=== PATIENT | female | born 1945 | race Caucasian/White ===

== ENCOUNTER 2016-11-13 13:32 | Inpatient (IN) | payer MEDICARE, OTHER ==
[2016-11-03 10:31] VITALS: BMI 24.4
[~2016-11-13 13:32] MED LIST: ACETAMINOPHEN TAB 500 MG TAB PO ONE; HYDROmorphone 1 MG/ML 1 ML SYRINGE IVP PRN; LIDOCAINE 1% 20 ML VIAL (10MG/ML) FOR IV START INTRADERMA PRN; MELOXICAM 7.5 MG TAB PO ONE; ONDANSETRON 4 MG/2 ML VIAL IVP ONE; TRANEXAMIC ACID 1,000 MG in SODIUM CHLORIDE 0.9% 100 ML IVPB ONE
[2016-11-13] MEDS ORDERED: DEXAMETHASONE SOD PHOS (MDV) 100 MG/10 ML VIAL IV ONE (14:16)
[2016-11-13] MEDS: LACTATED RINGERS 1,000 ML IV SCH ×2 (14:16→22:30)
[2016-11-13] MEDS ORDERED: PROPOFOL 10 MG/ML 20 ML VIAL IV ONE (14:40)
[2016-11-13] MEDS ORDERED: ceFAZolin 1,000 MG VIAL ONE (14:40)
[2016-11-13] MEDS ORDERED: SODIUM CHLORIDE 0.9% IRRIG 1,000 ML BTL IRRIGATION ONE (14:40)
[2016-11-13] MEDS ORDERED: SODIUM CHLORIDE 0.9% IRRIG 3,000 ML BAG IRRIGATION ONE (14:40)
[2016-11-13] MEDS ORDERED: ceFAZolin 10 GM VIAL IVPB ONE (14:40)
[2016-11-13] MEDS ORDERED: LIDOCAINE 1% INJ 10MG/ML (20 ML MDV) ONE (14:40)
[2016-11-13] MEDS ORDERED: ePHEDrine 50 MG/ML 1 ML AMP ONE (14:40)
[2016-11-13] MEDS ORDERED: SODIUM CHLORIDE 0.9% 100 ML BAG ONE (14:40)
[2016-11-13] MEDS ORDERED: HEPARIN SODIUM,PORCINE 10,000 UNIT/ML 1 ML VIAL ONE (14:40)
[2016-11-13] MEDS ORDERED: KETAMINE 10 MG/ML 20 ML VIAL ONE (14:40)
[2016-11-13] MEDS ORDERED: PHENYLEPHRINE-0.9% NACL SYG 1 MG/10 ML SYRINGE ONE (14:40)
[2016-11-13] MEDS ORDERED: fentaNYL (PF) 50 MCG/ML 2 ML AMP ONE (14:40)
[2016-11-13] MEDS ORDERED: MIDAZOLAM 2 MG/2 ML VIAL ONE (14:40)
[2016-11-13] MEDS: ceFAZolin 2 GM in SODIUM CHLORIDE 0.9% 100 ML IVPB ONE ×2 (14:46→16:47)
[2016-11-13] MEDS ORDERED: hydrOXYzine PAMOATE 25 MG CAP PO PRN (14:54)
[2016-11-13] MEDS ORDERED: DIAZEPAM 5 MG TAB PO PRN ×2 (14:54)
[2016-11-13] MEDS ORDERED: HYDROmorphone 1 MG/ML 1 ML SYRINGE IVP PRN ×3 (14:54)
[2016-11-13] MEDS ORDERED: NALOXONE 0.4 MG/ML 1 ML VIAL IV PRN (14:54)
[2016-11-13] MEDS ORDERED: ONDANSETRON 4 MG/2 ML VIAL IVP PRN (14:54)
[2016-11-13] MEDS ORDERED: MAGNESIUM HYDROXIDE 2,400 MG/10 ML CUP PO PRN (14:54)
[2016-11-13] MEDS: ROPIVACAINE 246.25 MG, EPINEPHrine 0.5 MG, KETOROLAC 30 MG, cloNIDine HCL/PF 80 MCG, WA... MISCELLANE ONE ×10 (15:21→15:47)
[2016-11-13] MEDS ORDERED: ceFAZolin 3,000 MG in SODIUM CHLORIDE 0.9% IRRIGATIO 3,000 ML IRRIGATION ONE (15:22)
--- NOTE | 2016-11-13 15:58 | P.OP ---
Date of Procedure: 11/13/16 Preoperative Diagnosis: Severe osteoarthritis of the left hip. Postoperative Diagnosis: Severe osteoarthritis of the left hip. Procedure(s) Performed: Left total hip arthroplasty. Implants: Mcneill and nephew Polarstem size 1 standard Mcneill & Nephew R3, 3 hole acetabular shell, 52 mm Mcneill & Nephew reflection 6.5 mm cancellus screw, 25 mm, 20mm Mcneill & Nephew R3, XLPE 20 acetabular liner Mcneill & Nephew Oxinium femoral head 36 m, +0 All components were press-fit. The articulation is ceramic on polyethylene. Anesthesia: spinal Surgeon: Amarjit Odonnell Windscreen Fitter #1: Brandi Neville Estimated Blood Loss (ml): 100 Pathology: other (Femoral head) Condition: stable Disposition: PACU Indications for Procedure: After failure of conservative treatment we discussed the surgical and nonsurgical treatment options at length. Patient wishes to proceed with a total hip arthroplasty with a lateral approach. Complications specific to this procedure were discussed at length, including but not limited to infection, leg length discrepancy, dislocation, and nerve injury. Patient is aware of all these complications and informed consent was obtained Operative Findings: The operative findings are consistent with severe osteoarthritis of the left hip. Description of Procedure: Patient was seen and evaluated in the preoperative area, consent was reviewed, and the surgical site was marked with a skin marker. Patient was then brought to the operating room and given prophylactic antibiotics intravenously. 1 g of Tranexamic acid was also given. A spinal anesthetic was administered by the anesthesia department. A Huggins catheter was then placed by the nursing staff. The patient was then placed on the operative table and placed in the lateral decubitus position with the bony prominences well-padded. The hip area was then prepped and draped in usual sterile fashion. A universal timeout was then performed, which confirmed the patient's name, surgical site, ALLERGIES, and procedure being performed. Next the incision site was located in the lateral aspect of the hip, centered at the tip of the greater trochanter.. The skin and subcutaneous tissues were sharply incised. Incision was carefully dissected down to the fascia. This fascia was then incised in line with the incision. Next, a Charnley retractor was then placed in the abductors were identified. The anterior one third of the abductors was released off the trochanter and one large sleeve. The anterior hip capsule was then exposed. The capsule was then opened. The proximal femur was then visualized. The hip was then gently dislocated. The femoral neck was then osteotomized appropriate level above the lesser trochanter. On gross visual inspection, the femoral head had complete loss of articular cartilage and multiple periarticular osteophytes. Attention was then turned to the acetabulum. The acetabulum was exposed and any remaining labrum was excised. Sequential reaming of the acetabulum was performed to a bed of bleeding cancellus bone. When the appropriate size was reached, a trial was then placed. The trial was then removed. Then the final implant was impacted at 20 of anteversion and 40 of abduction, and fully seated in the acetabulum. 2 screws were then placed in the acetabulum. Next, the liner was then impacted, with a 20 elevated liner located in the anterior superior quadrant. Component locking was confirmed. Attention was then directed to the femur. The proximal femurs reexposed. Retractors were then placed. A box osteotome was used to lateralize the proximal femur. A head of visual merchandising was then used to locate the femoral canal. Sequential broaching was then performed with appropriate size which afforded excellent fixation in the proximal femur. The calcar was then planed. A trial was then placed with appropriate head and neck, and the hip was gently reduced. The leg lengths were checked and found to be equal. Hip was then taken through full range of motion, was stable throughout. Next, the hip was gently dislocated, and the trials were removed. Final implants were then impacted and the hip was again reduced. The leg lengths were again examined and found to be equal. The hip was also taken through range of motion, and found to be stable. The hip was then copiously irrigated with antibiotic solution with pulsatile lavage. The hip was then irrigated with Irrisept solution. The soft tissues were then injected with ropivacaine solution. A second dose of 1 g of Tranexamic acid was given. The abductors were then repaired with #5 Ethibond suture with drill holes to the bone. The fascia was closed with #2 strata fix suture. The subcutaneous tissue was closed with 3-0 Vicryl. The subcuticular tissue was closed with 30 strata fix suture. The skin was then closed with Dermabond tape. The patient was then transferred to the recovery room in stable condition. The Asst. Brandi Neville was required due to the complexity of surgery, and the need for skilled addictions counselor assistant for positioning, draping, exposure, retraction, and closure of the wound.and closure of the wound.
[2016-11-13] MEDS: SODIUM CHLORIDE 0.9% 1,000 ML IV SCH (16:36)
--- NOTE | 2016-11-13 17:50 | XR ---
EXAMINATION TYPE: XR Hip Limited LT DATE OF EXAM: 11/13/2016 5:40 PM COMPARISON: NONE HISTORY: Hip surgery TECHNIQUE: Single view FINDINGS: There is a left hip prosthesis. Components appear in anatomic position. IMPRESSION: Left hip prosthesis without sign of a complicating process.
[2016-11-13] MEDS ORDERED: DOCUSATE 100 MG CAP PO PRN (18:29)
[2016-11-13] MEDS: HYDROcodone/APAP 10-325MG 1 EACH TAB PO PRN (18:29)
[2016-11-13] MEDS: SENNOSIDES-DOCUSATE SODIUM 1 EACH TAB PO SCH (21:09)
[2016-11-13] MEDS: ceFAZolin 2 GM in SODIUM CHLORIDE 0.9% 100 ML IVPB SCH (21:17)
[2016-11-13] MEDS: ASPIRIN 325 MG TAB PO SCH (21:17)
[2016-11-13] MEDS: GABAPENTIN 300 MG CAP PO SCH (22:01)
[2016-11-13] MEDS: PRAVASTATIN SODIUM 40 MG TAB PO SCH (22:02)
[2016-11-13] MEDS: MELATONIN 5 MG TABLET PO SCH (22:02)
[2016-11-13] MEDS: traZODone HCL 50 MG TAB PO SCH (22:02)
[2016-11-13] MEDS ORDERED: LORazepam 0.5 MG TAB PO PRN (22:41)
[2016-11-14] MEDS: ceFAZolin 2 GM in SODIUM CHLORIDE 0.9% 100 ML IVPB SCH (04:04)
[2016-11-14] MEDS: HYDROcodone/APAP 10-325MG 1 EACH TAB PO PRN ×5 (04:12→19:47)
[2016-11-14] MEDS: LEVOTHYROXINE 25 MCG TAB PO SCH (05:08)
[2016-11-14] MEDS: SODIUM CHLORIDE 0.9% 1,000 ML IV SCH (05:09)
[2016-11-14 07:22] LABS: Anisocytosis Slight; Basophils % (A) 0 %; CH 23.9; CHCM 28.6; Eosinophils % (A) 0 %; HCT 28.9 % (34.0-46.0); HDW 2.67; HGB 8.5 gm/dL (11.4-16.0); Hypochromasia Marked; Luc # (Auto) 0.08; Luc % (Auto) 1; Lymphocytes # (A) 0.7 k/uL (1.0-4.8); Lymphocytes % (A) 9 %; MCH 24.5 pg (25.0-35.0); MCHC 29.2 g/dL (31.0-37.0); MCV 83.9 fL (80.0-100.0); Monocytes # (A) 0.4 k/uL (0-1.0); Monocytes % (A) 5 %; Neutrophils % (A) 85 %; RBC 3.45 m/uL (3.80-5.40); RDW 16.7 % (11.5-15.5); WBC 8.2 k/uL (3.8-10.6); WBC (Perox) 8.73
[2016-11-14 07:41] LABS: Anion Gap 10 mmol/L; Blood Urea Nitrogen 9 mg/dL (7-17); Calcium 8.6 mg/dL (8.4-10.2); Carbon Dioxide 26 mmol/L (22-30); Chloride 110 mmol/L (98-107); Glucose 122 mg/dL (74-99); Non-African American GFR(MDRD) >60 (>60 ml/min/1.73 sqM); Potassium 4.3 mmol/L (3.5-5.1); Sodium 146 mmol/L (137-145)
[2016-11-14] MEDS: GABAPENTIN 300 MG CAP PO SCH ×3 (08:16→20:03)
[2016-11-14] MEDS: LACTOBACILLUS ACIDOPH & BULGAR 1 EACH PACKET PO SCH (08:17)
[2016-11-14] MEDS: ASPIRIN 325 MG TAB PO SCH ×2 (08:17→20:03)
[2016-11-14] MEDS: ESCITALOPRAM 20 MG TAB PO SCH (08:17)
[2016-11-14] MEDS: MELOXICAM 7.5 MG TAB PO SCH (08:17)
[2016-11-14] MEDS: amLODIPine 10 MG TAB PO SCH (08:17)
[2016-11-14] MEDS: FUROSEMIDE 40 MG TAB PO SCH (08:17)
[2016-11-14] MEDS: POTASSIUM CHLORIDE ER 10 MEQ TAB.ER.PRT PO SCH (08:18)
[2016-11-14] MEDS: MULTIVITAMINS, THERA 1 EACH TAB PO SCH (08:19)
--- NOTE | 2016-11-14 10:51 | CONS ---
DATE OF CONSULTATION: 11/13/2016 REASON FOR CONSULTATION: Advice regarding chronic obstructive pulmonary disease and other medical issues requested by Dr. Odonnell. HISTORY OF PRESENT ILLNESS: This 71-year-old woman with a past medical history of multiple medical problems including history of COPD, hypertension, hyperlipidemia, history of degenerative joint disease joint, history of anxiety and depression underwent left total hip joint arthroplasty for severe DJD by Dr. Odonnell. There is no history of chest pain, no palpitations. No history of headache, loss of consciousness, seizures. No history of fever, rigors or chills. PAST MEDICAL HISTORY: History of COPD, hypertension, hyperlipidemia, history of DJD, history of hypothyroidism, history of back surgery, hysterectomy. Medications prior to admission include: 1. Trazodone 50 mg p.o. q.h.s. 2. Norvasc 10 mg p.o. daily. 3. Pravachol 40 mg. 4. K-Dur 10 mEq p.o. daily. 5. Centrum 1 p.o. b.i.d. 6. Melatonin 5 mg q.h.s. 7. Zestril 5 mg daily. 8. Synthroid 25 mcg p.o. daily. 9. Ativan 0.5 mg t.i.d. p.r.n. 10. Probiotic 1 p.o. daily. 11. Colony 10 mg p.o. q.h.s. 12. Neurontin 600 mg q.h.s. and 300 mg b.i.d. 13. Lasix 40 mg b.i.d. 14. Lexapro 20 mg a day. 15. Colace 100 mg t.i.d. p.r.n. 16. Ecotrin 81 mg daily. ALLERGIES: None. FAMILY HISTORY: History of heart disease in the family. No history of any stroke. SOCIAL HISTORY: History of smoking daily, but no history of alcohol intake. REVIEW OF SYSTEMS: ENT: No diminished hearing or diminished vision. CARDIOVASCULAR: No angina, otherwise as mentioned earlier. RESPIRATORY: No cough. GI: No nausea. : No dysuria. NERVOUS SYSTEM: No numbness or weakness. ALLERGY/IMMUNOLOGY: No history of asthma or hayfever. MUSCULOSKELETAL: As mentioned earlier. HEMATOLOGY: No history of anemia. ENDOCRINE: As mentioned earlier. CONSTITUTIONAL: As mentioned earlier. DERMATOLOGY: Negative. RHEUMATOLOGY: Negative. PSYCHIATRY: As mentioned earlier. PHYSICAL EXAMINATION: The patient is alert and oriented times three. Pulse 100, blood pressure 90/55, respirations 16, temperature 98.1, pulse ox 99% on room air. HEENT: Conjunctivae normal. NECK: No jugular venous distention. CARDIOVASCULAR: S1 and S2, muffled. RESPIRATORY: Breath sounds diminished at the bases. No rhonchi, no crackles. ABDOMEN: Soft, nontender, no mass palpable. LEGS: Status post surgery. NERVOUS SYSTEM: Higher function as mentioned. Moves all four limbs. No focal motor deficits. LYMPHATIC: No lymphadenopathy in the neck, axillae or groin. SKIN: No ulcer, rash or bleeding. LABS: Potassium 3.8. ASSESSMENT: 1. Status post left total hip joint arthroplasty. 2. Chronic obstructive pulmonary disease. 3. Hypertension. 4. Hyperlipidemia. 5. History of degenerative joint disease. 6. History of peptic ulcer. 7. History of back surgery, degenerative joint disease. 8. History of anxiety and depression. 9. History of nicotine dependency. RECOMMENDATIONS AND DISCUSSION: In this 71-year-old woman who presented with multiple complex medical issues, we will monitor the patient closely and continue current medications. Continue symptomatic treatment. Otherwise at this time I recommend resume the home medications. Smoking cessation advised. DVT prophylaxis. Follow the patient closely. The patient may be asked to follow up with primary physician after discharge. Thank you Dr. Odonnell for asking us to participate in the care of this patient.
--- NOTE | 2016-11-14 17:01 | P.PN ---
Subjective Principal diagnosis: Left Hip Osteoarthritis Patient seen at bedside today. She is post op day #1 from left total hip arthroplasty per Dr. Amarjit Odonnell. She has no new complaints. She has post op pain as expected. She denies numbness, tingling or calf pain. ROS is negative for fever, chills, chest pain, SOB or other. Objective - Vital Signs Vital signs: Vital Signs Temp 97.6 F 11/14/16 14:09 Pulse 101 H 11/14/16 14:09 Resp 16 11/14/16 14:09 BP 113/56 11/14/16 14:09 Pulse Ox 94 L 11/14/16 14:09 Intake & Output 11/13/16 11/14/16 11/14/16 18:59 06:59 18:59 Intake Total 0877 155 6352 Output Total 175 1900 200 Balance 877 -1180 880 Intake: IV 1052 720 Sodium Chloride 0.9% 1, 720 000 ml @ 60 mls/hr IV . [id number] [facility] Rx#:[id number] Oral 1080 Output: Urine 75 1900 200 Uretheral (Huggins) 1900 200 Estimated Blood Loss 100 Other: Voiding Method Indwelling Catheter Indwelling Catheter Indwelling Catheter - Exam Surgical wound is benign. No active bleeding, drainage, or dehiscence. Neuro status intact with motor and sensation throughout left lower extremity. Calf is soft and nontender. 2+ pulses and less than 2 sec cap refill present. - Constitutional General appearance: Present: no acute distress - Psychiatric Psychiatric: Present: A&O x's 3, appropriate affect, intact judgment & insight - Labs CBC & Chem 7: 11/14/16 06:45 11/14/16 06:45 Labs: Abnormal Lab Results - Last 24 Hours (Table) 11/14/16 11/14/16 Range/Units 06:45 06:45 RBC 3.45 L (3.80-5.40) m/uL Hgb 8.5 L (11.4-16.0) gm/dL Hct 28.9 L (34.0-46.0) % MCH 24.5 L (25.0-35.0) pg MCHC 29.2 L (31.0-37.0) g/dL RDW 16.7 H (11.5-15.5) % Lymphocytes # 0.7 L (1.0-4.8) k/uL Sodium 146 H (137-145) mmol/L Chloride 110 H (98-107) mmol/L Glucose 122 H (74-99) mg/dL Assessment and Plan (1) Status post left hip replacement Narrative/Plan: She will continue with routine postop orthopedic protocol including wound care, PT, pain management, DVT prophylaxis, and medical management. [facility] [place] Status: Acute Time with Patient: Less than 30
[2016-11-14] MEDS: SENNOSIDES-DOCUSATE SODIUM 1 EACH TAB PO SCH (20:03)
[2016-11-14] MEDS: MELATONIN 5 MG TABLET PO SCH (20:03)
[2016-11-14] MEDS: PRAVASTATIN SODIUM 40 MG TAB PO SCH (20:03)
[2016-11-14] MEDS: traZODone HCL 50 MG TAB PO SCH (20:04)
[2016-11-15] MEDS: HYDROcodone/APAP 10-325MG 1 EACH TAB PO PRN ×6 (00:13→22:41)
[2016-11-15] MEDS: SODIUM CHLORIDE 0.9% 1,000 ML IV SCH ×2 (01:32→16:43)
[2016-11-15] MEDS: LACTATED RINGERS 1,000 ML IV SCH ×2 (03:56→20:42)
[2016-11-15] MEDS: LEVOTHYROXINE 25 MCG TAB PO SCH (05:50)
[2016-11-15 07:39] LABS: Anion Gap 5 mmol/L; Blood Urea Nitrogen 15 mg/dL (7-17); Calcium 8.5 mg/dL (8.4-10.2); Carbon Dioxide 28 mmol/L (22-30); Chloride 108 mmol/L (98-107); Glucose 86 mg/dL (74-99); Non-African American GFR(MDRD) >60 (>60 ml/min/1.73 sqM); Potassium 4.2 mmol/L (3.5-5.1); Sodium 141 mmol/L (137-145)
[2016-11-15] MEDS: amLODIPine 10 MG TAB PO SCH (08:48)
[2016-11-15] MEDS: ESCITALOPRAM 20 MG TAB PO SCH (08:49)
[2016-11-15] MEDS: GABAPENTIN 300 MG CAP PO SCH ×3 (08:49→20:42)
[2016-11-15] MEDS: FUROSEMIDE 40 MG TAB PO SCH (08:49)
[2016-11-15] MEDS: LACTOBACILLUS ACIDOPH & BULGAR 1 EACH PACKET PO SCH (08:49)
[2016-11-15] MEDS: ASPIRIN 325 MG TAB PO SCH ×2 (08:49→20:41)
[2016-11-15] MEDS: MELOXICAM 7.5 MG TAB PO SCH (08:50)
[2016-11-15] MEDS: POTASSIUM CHLORIDE ER 10 MEQ TAB.ER.PRT PO SCH (08:50)
--- NOTE | 2016-11-15 09:34 | PN ---
DATE OF SERVICE: 11/14/2016 This 71-year-old woman was admitted after left hip arthroplasty has improved significantly. No chest pain, no palpitations, no fever. Hemoglobin is low. On exam, alert and oriented x3. Pulse 101, blood pressure 130/56, respirations 16, temperature 97.3, pulse ox 94% on room air. HEENT: Conjunctivae normal. NECK: No jugular venous distention. CARDIOVASCULAR: S1 and S2, muffled. RESPIRATORY: Breath sounds diminished at the bases. No rhonchi, no crackles. ABDOMEN: Soft, nontender. No mass palpable. LEGS: Status post hip arthroplasty. NERVOUS SYSTEM: No focal deficits. LABS: Hemoglobin 8.5 and sodium is 146. ASSESSMENT: 1. Status post left total hip joint arthroplasty. 2. History of chronic anemia, and partly dilution. 3. Chronic obstructive pulmonary disease. 4. Hypertension. 5. Hyperlipidemia. 6. History of degenerative joint disease. 7. History of peptic ulcer. 8. History of back surgery and degenerative joint disease. 9. History of anxiety, depression. 10. History of nicotine dependence. 11. Increased sodium. 12. Increased random blood sugar. 13. NO CODE, NO CPR, NO VENT. RECOMMENDATIONS AND DISCUSSION: This 71-year-old woman who presented with multiple complex medical issues, will continue the current medications and symptomatic treatment. Otherwise at this time DVT prophylaxis, incentive spirometry, continue to monitor hemoglobin and electrolytes. Further recommendations to follow. Closely follow with Orthopedic Surgery.
--- NOTE | 2016-11-15 10:44 | P.PN ---
Subjective Principal diagnosis: Left Hip Osteoarthritis Patient seen at bedside today. She is post op day #2 from left total hip arthroplasty per Dr. Amarjit Odonnell. She has no new complaints. She has post op pain as expected but controlled. She has ambulated. . She denies numbness, tingling or calf pain. ROS is negative for fever, chills, chest pain, SOB or other. Objective - Vital Signs Vital signs: Vital Signs Temp 99.0 F 11/15/16 07:00 Pulse 76 11/15/16 08:00 Resp 16 11/15/16 08:00 BP 126/53 11/15/16 07:00 Pulse Ox 94 L 11/15/16 07:00 Intake & Output 11/14/16 11/15/16 11/15/16 18:59 06:59 18:59 Intake Total 1200 200 360 Output Total 200 Balance 1000 200 360 Intake: Oral 1200 200 360 Output: Urine 200 Uretheral (Huggins) 200 Other: Voiding Method Indwelling Catheter Indwelling Catheter # Voids 1 - Exam Surgical wound is benign. No active bleeding, drainage, or dehiscence. Neuro status intact with motor and sensation throughout left lower extremity. Calf is soft and nontender. 2+ pulses and less than 2 sec cap refill present. - Constitutional General appearance: Present: no acute distress - Psychiatric Psychiatric: Present: A&O x's 3, appropriate affect, intact judgment & insight - Labs CBC & Chem 7: 11/14/16 06:45 11/15/16 06:52 Labs: Abnormal Lab Results - Last 24 Hours (Table) 11/15/16 Range/Units 06:52 Chloride 108 H (98-107) mmol/L Assessment and Plan (1) Status post left hip replacement Narrative/Plan: She will continue with routine postop orthopedic protocol including wound care, PT, pain management, DVT prophylaxis, and medical management. Expect transfer to [facility] in [place] Wednesday11/17/15 Status: Acute Time with Patient: Less than 30
[2016-11-15 10:55] LABS: Anisocytosis Slight; Basophils % (A) 0 %; CH 23.8; Eosinophils # (A) 0.1 k/uL (0-0.7); Eosinophils % (A) 1 %; HCT 28.9 % (34.0-46.0); HDW 2.54; HGB 8.4 gm/dL (11.4-16.0); Hypochromasia Marked; Luc # (Auto) 0.13; Luc % (Auto) 2; Lymphocytes # (A) 1.3 k/uL (1.0-4.8); Lymphocytes % (A) 18 %; MCH 24.9 pg (25.0-35.0); MCHC 29.2 g/dL (31.0-37.0); MCV 85.3 fL (80.0-100.0); Mean Platelet Volume 6.3; Monocytes # (A) 0.6 k/uL (0-1.0); Monocytes % (A) 9 %; Neutrophils % (A) 71 %; RBC 3.39 m/uL (3.80-5.40); WBC 7.1 k/uL (3.8-10.6); WBC (Perox) 7.57
[2016-11-15] MEDS: FERROUS SULFATE 325 MG TAB PO SCH (11:01)
[2016-11-15] MEDS: MULTIVITAMINS, THERA 1 EACH TAB PO SCH (11:01)
[2016-11-15] MEDS: MELATONIN 5 MG TABLET PO SCH (20:41)
[2016-11-15] MEDS: SENNOSIDES-DOCUSATE SODIUM 1 EACH TAB PO SCH (20:41)
[2016-11-15] MEDS: PRAVASTATIN SODIUM 40 MG TAB PO SCH (20:41)
[2016-11-15] MEDS: traZODone HCL 50 MG TAB PO SCH (20:41)
[2016-11-15] MEDS: PANTOPRAZOLE 40 MG TABLET PO SCH (22:39)
[2016-11-16] MEDS: HYDROcodone/APAP 10-325MG 1 EACH TAB PO PRN ×5 (05:21→21:02)
[2016-11-16] MEDS: LEVOTHYROXINE 25 MCG TAB PO SCH (05:22)
[2016-11-16] MEDS: amLODIPine 10 MG TAB PO SCH (07:34)
[2016-11-16] MEDS: POTASSIUM CHLORIDE ER 10 MEQ TAB.ER.PRT PO SCH (07:34)
[2016-11-16] MEDS: PANTOPRAZOLE 40 MG TABLET PO SCH (07:34)
[2016-11-16] MEDS: ASPIRIN 325 MG TAB PO SCH ×2 (07:34→20:25)
[2016-11-16] MEDS: LACTOBACILLUS ACIDOPH & BULGAR 1 EACH PACKET PO SCH (07:34)
[2016-11-16] MEDS: GABAPENTIN 300 MG CAP PO SCH ×3 (07:34→20:25)
[2016-11-16] MEDS: FUROSEMIDE 40 MG TAB PO SCH (07:34)
[2016-11-16] MEDS: ESCITALOPRAM 20 MG TAB PO SCH (07:35)
[2016-11-16] MEDS: MELOXICAM 7.5 MG TAB PO SCH (07:35)
[2016-11-16 07:37] LABS: Anisocytosis Slight; Basophils % (A) 0 %; CH 24.4; CHCM 29.6; Eosinophils # (A) 0.1 k/uL (0-0.7); Eosinophils % (A) 1 %; HCT 28.2 % (34.0-46.0); HDW 2.61; HGB 8.1 gm/dL (11.4-16.0); Hypochromasia Marked; Luc # (Auto) 0.09; Luc % (Auto) 1; Lymphocytes # (A) 0.9 k/uL (1.0-4.8); Lymphocytes % (A) 13 %; MCH 23.7 pg (25.0-35.0); MCHC 28.7 g/dL (31.0-37.0); MCV 82.7 fL (80.0-100.0); Mean Platelet Volume 7.1; Monocytes # (A) 0.5 k/uL (0-1.0); Monocytes % (A) 8 %; Neutrophils # (A) 5.3 k/uL (1.3-7.7); Neutrophils % (A) 76 %; RBC 3.41 m/uL (3.80-5.40); RDW 17.5 % (11.5-15.5); WBC 6.9 k/uL (3.8-10.6); WBC (Perox) 7.18
[2016-11-16 07:58] LABS: Anion Gap 11 mmol/L; Blood Urea Nitrogen 13 mg/dL (7-17); Calcium 8.4 mg/dL (8.4-10.2); Carbon Dioxide 26 mmol/L (22-30); Chloride 106 mmol/L (98-107); Glucose 92 mg/dL (74-99); Non-African American GFR(MDRD) >60 (>60 ml/min/1.73 sqM); Sodium 143 mmol/L (137-145)
--- NOTE | 2016-11-16 09:58 | PN ---
DATE OF SERVICE: 11/15/2015 This 71-year-old woman who was admitted after lip total hip joint arthroplasty is improving significantly. No chest pain or palpitations. No fever. The patient's hemoglobin is 8.4. During previous orthopedic surgery the patient had significant anemia and needed a transfusion. No chest pain, no palpitations, no fever. On exam, alert, oriented. Pulse 100, blood pressure 124/57, respirations 17, temperature 98.8, pulse ox 94% on room air. HEENT: Conjunctiva pale. Oral mucosa moist. NECK: No JVD. No lymph node enlargement. CARDIOVASCULAR: S1 and S2 muffled. LUNGS: Breath sounds are diminished at the bases. No rhonchi, no crackles. ABDOMEN: Soft, nontender. No masses palpable. EXTREMITIES: Legs status post surgery. NERVOUS SYSTEM: No focal deficits. LABS: WBC 7.1, hemoglobin 8.4. ASSESSMENT: 1. Status post left total hip joint arthroplasty. 2. History of chronic anemia and currently partly due to dilution. 3. Chronic obstructive pulmonary disease. 4. Hypertension. 5. Hyperlipidemia. 6. History of degenerative joint disease. 7. History of peptic ulcer disease. 8. History of back surgery and degenerative joint disease. 9. History of anxiety/depression. 10. History of nicotine dependence. 11. Increased sodium. 12. Increased random blood sugar. 13. NO CODE, NO CPR, NO VENT. RECOMMENDATIONS AND DISCUSSION: Recommend to continue current medications and symptomatic treatment. Recommend to monitor PT and INR. Symptomatic treatment. Otherwise DVT prophylaxis. Closely follow with orthopedic surgery. Further recommendations to follow.
[2016-11-16] MEDS: SODIUM CHLORIDE 0.9% 1,000 ML IV SCH ×2 (10:37→20:49)
--- NOTE | 2016-11-16 11:20 | P.PN ---
Subjective Principal diagnosis: Left Hip Osteoarthritis Patient seen at bedside today. She is post op day #3 from left total hip arthroplasty per Dr. Amarjit Odonnell. She has no new complaints. She has minimal postop pain. She has ambulated. She denies numbness, tingling or calf pain. ROS is negative for fever, chills, chest pain, SOB or other. Objective - Vital Signs Vital signs: Vital Signs Temp 97.3 F L 11/16/16 07:00 Pulse 95 11/16/16 07:00 Resp 16 11/16/16 07:00 BP 109/52 11/16/16 07:00 Pulse Ox 95 11/16/16 07:00 Intake & Output 11/15/16 11/16/16 11/16/16 18:59 06:59 18:59 Intake Total 1770 360 Output Total 75 Balance 1695 360 Weight 62.596 kg Intake: Oral 1770 360 Output: Urine 75 Other: Voiding Method Indwelling Catheter # Voids 1 1 2 - Exam Surgical wound is benign. No active bleeding, drainage, or dehiscence. Neuro status intact with motor and sensation throughout left lower extremity. Calf is soft and nontender. 2+ pulses and less than 2 sec cap refill present. - Constitutional General appearance: Present: no acute distress - Psychiatric Psychiatric: Present: A&O x's 3, appropriate affect, intact judgment & insight - Labs CBC & Chem 7: 11/16/16 06:59 11/16/16 06:59 Labs: Abnormal Lab Results - Last 24 Hours (Table) 11/16/16 Range/Units 06:59 RBC 3.41 L (3.80-5.40) m/uL Hgb 8.1 L (11.4-16.0) gm/dL Hct 28.2 L (34.0-46.0) % MCH 23.7 L (25.0-35.0) pg MCHC 28.7 L (31.0-37.0) g/dL RDW 17.5 H (11.5-15.5) % Lymphocytes # 0.9 L (1.0-4.8) k/uL Assessment and Plan (1) Status post left hip replacement Narrative/Plan: She will continue with routine postop orthopedic protocol including wound care, PT, pain management, DVT prophylaxis, and medical management. Expect transfer to [facility] in [place] tomorrow, Wednesday11/17/15 Status: Acute Time with Patient: Less than 30
[2016-11-16] MEDS: FERROUS SULFATE 325 MG TAB PO SCH (12:37)
[2016-11-16] MEDS: MULTIVITAMINS, THERA 1 EACH TAB PO SCH (12:37)
[2016-11-16 20:14] LABS: Glucose,Whole Blood 165 mg/dL (75-99)
[2016-11-16] MEDS: MELATONIN 5 MG TABLET PO SCH (20:25)
[2016-11-16] MEDS: traZODone HCL 50 MG TAB PO SCH (20:25)
[2016-11-16] MEDS: PRAVASTATIN SODIUM 40 MG TAB PO SCH (20:25)
[2016-11-16] MEDS: SENNOSIDES-DOCUSATE SODIUM 1 EACH TAB PO SCH (20:49)
[2016-11-16] MEDS: LACTATED RINGERS 1,000 ML IV SCH (20:50)
[2016-11-17] MEDS: HYDROcodone/APAP 10-325MG 1 EACH TAB PO PRN ×4 (03:43→15:29)
[2016-11-17] MEDS: LEVOTHYROXINE 25 MCG TAB PO SCH (05:26)
[2016-11-17 07:35] VITALS: BP 101/56; PULSE 90; RESP 17; TEMP 98.5
[2016-11-17] MEDS: LACTOBACILLUS ACIDOPH & BULGAR 1 EACH PACKET PO SCH (08:16)
[2016-11-17] MEDS: GABAPENTIN 300 MG CAP PO SCH ×2 (08:17→15:24)
[2016-11-17] MEDS: ASPIRIN 325 MG TAB PO SCH (08:17)
[2016-11-17] MEDS: ESCITALOPRAM 20 MG TAB PO SCH (08:17)
[2016-11-17] MEDS: PANTOPRAZOLE 40 MG TABLET PO SCH (08:17)
[2016-11-17] MEDS: FUROSEMIDE 40 MG TAB PO SCH (08:17)
[2016-11-17] MEDS: MELOXICAM 7.5 MG TAB PO SCH (08:18)
[2016-11-17] MEDS: POTASSIUM CHLORIDE ER 10 MEQ TAB.ER.PRT PO SCH (08:18)
--- NOTE | 2016-11-17 08:35 | PN ---
DATE OF SERVICE: 11/16/2016 This 71-year-old woman was admitted after left total knee arthroplasty is improving significantly. No chest pain. No palpitations. No fever. Hemoglobin is 8.1. The patient had previously anemia which during the previous surgery. No chest pain. No palpitations. No fever. No shortness of breath. On exam, alert and oriented times three. Pulse 70, blood pressure 140/99, respiratory rate 16, temperature 97.4, pulse ox 94% on room air. HEENT: Conjunctivae normal. NECK: no jugular venous distention. CARDIOVASCULAR: S1, S2 muffled. RESPIRATORY: Breath sounds diminished at the bases. No rhonchi. No crackles. ABDOMEN: Soft, nontender. LEGS: Status post surgery. CENTRAL NERVOUS SYSTEM: No focal deficits. LABS: WBC 6.3, hemoglobin is 8.1. BMP within normal limits. ASSESSMENT: 1. Status post left total knee joint arthroplasty. 2. History of chronic anemia and currently partly due to dilutional. 3. Chronic obstructive pulmonary disease. 4. Hypertension. 5. Hyperlipidemia. 6. History of degenerative joint disease. 7. History of peptic ulcer disease. 8. History of back surgery and degenerative joint disease. 9. History of anxiety, depression. 10. History of nicotine dependence. 11. Increased sodium. 12. Increased random blood sugar. 13. NO CODE, NO CPR, NO VENT. RECOMMENDATIONS AND DISCUSSION: Recommend to continue current medications, continue to monitor. Symptomatic treatment. Repeat CBC in the morning. Further recommendations to follow. MTDD
--- NOTE | 2016-11-17 10:01 | P.DS ---
Providers Date of admission: 11/13/16 13:32 Expected date of discharge: 11/17/16 Attending physician: Amarjit Odonnell Consults: 11/13/16 14:54 Consult Physician Routine Consulting Provider: Johanne Escalante Consult Reason/Comments: medical management Do you want consulting provider notified?: Yes Primary care physician: Stated None - Discharge Diagnosis(es) (1) Primary osteoarthritis of left hip Current Visit: Yes Status: Acute (2) Status post left hip replacement Current Visit: Yes Status: Acute Priority: Medium Hospital Course: This is a pleasant 71-year-old female who was last seen in our office with complaints of left hip pain. Patient has known history of degenerative arthritis of the left hip and presented to discuss options. After discussion consideration the patient elected to proceed with a left total hip arthroplasty. Patient was seen preoperatively medically cleared for surgery by Dr. Penn. Patient was admitted to [facility] and underwent left total hip arthroplasty. The procedure was performed without complications or sequelae. The patient has done well postoperatively. Pain has been are reasonably controlled and is progressing with physical therapy. Hemoglobin appear stable at 8.1. She denies symptoms of shortness of breath or lightheadedness. The patient has no new complaints today. Patient denies shortness of breath, nausea or abdominal pain. She has had a bowel movement. The patient appears comfortable and in no acute distress. Dressing is clean dry and intact. Incision is fine with no erythema or active drainage. Calf is soft and nontender. The patient has good foot and ankle motion without difficulty. Lower extremities are neurovascularly intact. The patient is orthopedically stable for transfer to rehab once she is cleared medically. Pertinent Studies: Laboratory Tests 11/16/16 11/16/16 06:59 20:13 WBC 6.9 RBC 3.41 L Hgb 8.1 L Hct 28.2 L MCV 82.7 MCH 23.7 L MCHC 28.7 L RDW 17.5 H POC Glucose (mg/dL) 165 H Patient Condition at Discharge: Good Plan - Discharge Summary New Discharge Prescriptions: Aspirin EC [Ecotrin] 325 mg PO BID #60 tablet. HYDROcodone/APAP 10-325MG [Sheffield 10] 1 each PO Q4-6H PRN #90 tab PRN Reason: Pain Sennosides-Docusate Sodium [Senokot-S] 2 tab PO DAILY #60 tablet Discharge Medication List Furosemide [Lasix] 40 mg PO DAILY #30 tab 05/12/16 [Rx] Potassium Chloride ER [K-Dur 10] 10 meq PO DAILY #30 tab.er.prt 05/12/16 [Rx] traZODone HCL [Desyrel] 50 mg PO HS #60 tab 05/12/16 [Rx] Escitalopram [Lexapro] 20 mg PO DAILY 08/18/16 [History] Gabapentin [Neurontin] 300 mg PO BID 08/18/16 [History] L.acidoph,Paracasei, B.lactis [Probiotic] 1 cap PO DAILY 08/18/16 [History] Levothyroxine Sodium [Synthroid] 25 mcg PO DAILY 08/18/16 [History] Multivits-Min/Iron/FA/Lutein [Centrum Silver Women Tablet] 1 tab PO DAILY [History] Pravastatin Sodium [Pravachol] 40 mg PO HS 08/18/16 [History] LORazepam [Ativan] 0.5 mg PO TID PRN #20 tab 08/27/16 [Rx] Aspirin [Adult Low Dose Aspirin EC] 81 mg PO DAILY 11/03/16 [History] Docusate [Colace] 100 mg PO TID PRN 11/03/16 [History] Gabapentin [Neurontin] 600 mg PO HS 11/03/16 [History] HYDROcodone/APAP 10-325MG [Sheffield 10-325] 1 tab PO QID 11/03/16 [History] Lisinopril [Zestril] 5 mg PO DAILY 11/03/16 [History] Melatonin 5 mg PO HS 11/03/16 [History] amLODIPine BESYLATE [Norvasc] 10 mg PO DAILY 11/03/16 [History] Aspirin EC [Ecotrin] 325 mg PO BID #60 tablet.dr 11/13/16 [Rx] HYDROcodone/APAP 10-325MG [Sheffield 10] 1 each PO Q4-6H PRN #90 tab 11/17/16 [Rx] Sennosides-Docusate Sodium [Senokot-S] 2 tab PO DAILY #60 tablet 11/17/16 [Rx] Follow up Appointment(s)/Referral(s): Amarjit Odonnell DO [Doctor of Osteopathic Medicine] - 12/02/16 1:20 pm Activity/Diet/Wound Care/Special Instructions: Weightbearing as tolerated with walker Follow hip precautions and use abductor pillow as instructed Daily dressing changes Keep incision clean and dry Call [facility] with questions or concerns [phone] Discharge Disposition: TRANSFER TO SNF/ECF
[2016-11-17 11:52] LABS: Anisocytosis Slight; CH 23.7; CHCM 27.7; HCT 32.6 % (34.0-46.0); HGB 9.4 gm/dL (11.4-16.0); Hypochromasia Marked; MCH 24.6 pg (25.0-35.0); MCHC 28.7 g/dL (31.0-37.0); MCV 85.6 fL (80.0-100.0); Mean Platelet Volume 6.2; RBC 3.81 m/uL (3.80-5.40); RDW 16.9 % (11.5-15.5); WBC 7.4 k/uL (3.8-10.6)
[2016-11-17] MEDS: MULTIVITAMINS, THERA 1 EACH TAB PO SCH (12:14)
[2016-11-17] MEDS: FERROUS SULFATE 325 MG TAB PO SCH (12:14)
[2016-11-17] MEDS: amLODIPine 10 MG TAB PO SCH (15:23)
--- NOTE | 2016-11-17 19:01 | PN ---
DATE OF SERVICE: 11/17/2016 This 71-year-old woman was admitted after left total knee arthroplasty is improving significantly. No chest pain. No palpitations. No fever. ECF rehab is planned. Repeat hemoglobin is 9.1. On exam, alert and oriented times three. Pulse 90, blood pressure 101/50, respiratory rate 17, temperature 98.4, pulse ox 94% on room air. HEENT: Conjunctivae pale. NECK: No jugular venous distention. CARDIOVASCULAR: S1, S2 muffled. RESPIRATORY: Breath sounds diminished at the bases. A few scattered rhonchi and crackles. ABDOMEN: Soft. Nontender. LEGS: Status post orthopedic surgery. LABS: Repeat hemoglobin is 10.4. ASSESSMENT: 1. Status post left total knee arthroplasty. 2. History of chronic anemia and currently partly dilutional. 3. Chronic obstructive pulmonary disease. 4. Hypertension. 5. Hyperlipidemia. 6. History of degenerative joint disease. 7. History of peptic ulcer disease. 8. History of back surgery, and degenerative joint disease. 9. History of anxiety and depression. 10. History of nicotine dependence. 11. Increased sodium. 12. Increased random blood sugar. 13. NO CODE, NO CPR AND NO VENT. RECOMMENDATIONS AND DISCUSSION: Continue current medications, continue symptomatic treatment, otherwise, at this time recommend to continue the current medications, continue with symptomatic treatment. Medications reconciliation was done. Outpatient follow-up with primary physician. Follow hemoglobin closely. MTDD
== END 2016-11-17 15:47 | DRG 470 ==
LOC: 2ORMAIN 13:32 → 3SUR 16:02
PROVIDERS: ADMIT Orthopaedic Surgery; ATTEND Orthopaedic Surgery
PROC: 0SRB04A Replacement of Left Hip Joint with Ceramic on Polyethylene Synthetic Substitute, Uncemented, Open Approach (ICD-10-PCS; principal; 2016-11-13 15:45)
DX: M16.12 Unilateral primary osteoarthritis, left hip (principal); D64.9 Anemia, unspecified; J44.9 Chronic obstructive pulmonary disease, unspecified; I10 Essential (primary) hypertension; E03.9 Hypothyroidism, unspecified; E78.5 Hyperlipidemia, unspecified; Z82.49 Family history of ischemic heart disease and other diseases of the circulatory system; Z87.11 Personal history of peptic ulcer disease; Z87.891 Personal history of nicotine dependence; Z79.899 Other long term (current) drug therapy; Z72.0 Tobacco use
CPT/HCPCS: 73501; 80048; 84132; 85025; 85027; 86850; 86891; 86900; 86901; 88300

== ENCOUNTER → 2017-09-16 | Day surgery (SDC) | payer MEDICARE, OTHER ==
[~2017-09-16] MED LIST changes: -ACETAMINOPHEN TAB 500 MG TAB PO ONE; +DIAZEPAM 5 MG TAB PO STA; +HYDROcodone/APAP 5-325MG 1 EACH TAB PO PRN; -HYDROmorphone 1 MG/ML 1 ML SYRINGE IVP PRN; -LIDOCAINE 1% 20 ML VIAL (10MG/ML) FOR IV START INTRADERMA PRN; -MELOXICAM 7.5 MG TAB PO ONE; -ONDANSETRON 4 MG/2 ML VIAL IVP ONE; +PREMYELOGRAM MEDICATION REVIEW 1 EACH MISC PO PRN; -TRANEXAMIC ACID 1,000 MG in SODIUM CHLORIDE 0.9% 100 ML IVPB ONE
[2017-09-16 09:32] VITALS: RESP 16
[2017-09-16 09:34] VITALS: TEMP 98.1
[2017-09-16 10:25] VITALS: PULSE 65
--- NOTE | 2017-09-16 10:35 | CT ---
EXAMINATION TYPE: CT lumbar spine w con DATE OF EXAM: 09/16/2017 COMPARISON: NONE HISTORY: Right leg weakness CT DLP: 419.2 mGycm Automated exposure control for dose reduction was used. CONTRAST: CT scan of the lumbar is performed following intrathecal contrast administration, patient injected wi th 10 mL of Omnipaque 240 Bone and soft tissue window settings are submitted as well as coronal and sagittal reconstructions. FINDINGS: There is a marked dextroscoliosis present centered at L2. T12 shows a wedge compression deformity wit h loss of height of the superior endplate of approximately 25%. There is multilevel spondylosis. Retr olisthesis grade 1 L3-4, L2-3. Laminectomy change present at T12, rudimentary ribs present at L1. Pro bable left ovarian cyst measuring 3.1 cm noted incidentally. Stimulator wires are present extending f rom the left gluteal region and entering the spinal canal at approximately L1-2 level posteriorly. L1-L2: Posterior broad-based disc bulge causes anterior mass effect on the thecal sac, no significant central stenosis. Circumferential extension encroaches somewhat on the neural foramina. Some facet a rthropathy present with hypertrophy of the ligamentum flavum. L2-L3: Broad-based posterior disc bulge causes mild anterior mass effect on the thecal sac and extend s laterally to encroach somewhat on the neural foramina, scoliosis contributes to cause mass effect o n the thecal sac, trefoil appearance is present. No significant central canal stenosis. Facet arthrop athy with hypertrophy of the ligamentum flavum noted. L3-L4: Posterior extension of endplate disc complex is present, spinal curvature results in a trefoil appearance of the thecal sac but no significant central canal stenosis. There is some encroachment o n the foramina right greater than left due to circumferential extension of endplate disc complex. L4-L5: Posterior extension of endplate disc complex causes mild anterior mass effect on the thecal sa c. Some right-sided foraminal encroachment is present due to lateral extension of endplate disc compl ex. There is some facet arthropathy change, hypertrophic change of the ligamentum flavum on the left. L5-S1: Posterior broad-based disc bulge causes anterior mass effect on the thecal sac only mildly, no significant central stenosis. Lateral extension endplate disc complex results in foraminal encroachm ent greater on the right. IMPRESSION: No paraspinal masses are identified. Lumbar segments are intact. Scoliosis, degenerative disc diseas e, facet arthropathy. Postop changes. Compression deformity at T12. Correlate with exam prior to any intervention. Left ovarian cystic lesion is indeterminate and incompletely evaluated, consider follow -up.
--- NOTE | 2017-09-16 10:37 | FL ---
Lumbar myelogram HISTORY: Right leg weakness Maximal barrier technique was utilized. 7 minutes 12 seconds fluoroscopy time supplied, 2 images docu ment the procedure The skin overlying the lumbar spine was prepped following localization under fluoroscopy. Lidocaine u sed for local anesthesia. Following failed attempt to advance the needle at L2 level, 22-gauge needle was advanced into the thecal sac using fluoroscopic guidance at L3. General hand injection of contra st was performed and spot image obtained. Following instillation of 10 cc Omni 240 the needle was rem derik. Hemostasis achieved. Patient remained in stable condition. There is a scoliotic curvature of the spine. Multilevel degenerative disc changes are noted. See dict ated report CT lumbar spine same date. IMPRESSION: Successful lumbar myelogram, post procedure CT is pending. This procedure performed by agnieszka oates.
[2017-09-16 12:30] VITALS: BP 117/71
== END ==
LOC: RADPROMAIN 08:00
PROVIDERS: ATTEND Physical Medicine & Rehabilitation
DX: M47.817 Spondylosis without myelopathy or radiculopathy, lumbosacral region (principal); M46.96 Unspecified inflammatory spondylopathy, lumbar region; M41.9 Scoliosis, unspecified; M51.27 Other intervertebral disc displacement, lumbosacral region; M47.814 Spondylosis without myelopathy or radiculopathy, thoracic region; G89.4 Chronic pain syndrome; M96.1 Postlaminectomy syndrome, not elsewhere classified; M16.0 Bilateral primary osteoarthritis of hip; I10 Essential (primary) hypertension; E78.5 Hyperlipidemia, unspecified; E07.9 Disorder of thyroid, unspecified; J44.9 Chronic obstructive pulmonary disease, unspecified; Z87.11 Personal history of peptic ulcer disease; F32.9 Major depressive disorder, single episode, unspecified; F41.9 Anxiety disorder, unspecified; Z96.643 Presence of artificial hip joint, bilateral; Z79.2 Long term (current) use of antibiotics; Z79.82 Long term (current) use of aspirin; Z79.891 Long term (current) use of opiate analgesic; Z79.899 Other long term (current) drug therapy; Z72.0 Tobacco use
CPT/HCPCS: 62304; 72132; Q9966; 62284

== ENCOUNTER 2018-02-01 14:47 | Inpatient (IN) | payer MEDICARE, OTHER ==
[2018-02-01] MEDS ORDERED: MAGNESIUM HYDROXIDE 2,400 MG/10 ML CUP PO PRN (17:17)
[2018-02-01] MEDS ORDERED: MAG HYDROX/AL HYDROX/SIMETH 30 ML CUP PO PRN (17:17)
[2018-02-01] MEDS ORDERED: LORazepam 0.5 MG TAB PO PRN (17:17)
[2018-02-01] MEDS: IBUPROFEN 400 MG TAB PO PRN (18:48)
[2018-02-01 18:55] VITALS: BMI 24.6
[2018-02-01] MEDS: LISINOPRIL 10 MG TAB PO SCH (18:57)
[2018-02-01] MEDS: GABAPENTIN 300 MG CAP PO SCH ×2 (18:57→21:06)
[2018-02-01] MEDS: PRAVASTATIN SODIUM 40 MG TAB PO SCH (20:39)
[2018-02-01] MEDS: MELATONIN 5 MG TABLET PO SCH (20:39)
[2018-02-01] MEDS: METOPROLOL TARTRATE 50 MG TAB PO SCH (21:51)
[2018-02-02] MEDS: FERROUS SULFATE 325 MG TAB PO SCH (08:20)
[2018-02-02] MEDS: ASPIRIN 81 MG PO SCH (08:20)
[2018-02-02] MEDS: LISINOPRIL 10 MG TAB PO SCH (08:20)
[2018-02-02] MEDS: METOPROLOL TARTRATE 50 MG TAB PO SCH ×2 (08:20→20:38)
[2018-02-02] MEDS: amLODIPine 10 MG TAB PO SCH (08:20)
[2018-02-02] MEDS: GABAPENTIN 300 MG CAP PO SCH ×3 (08:20→21:21)
[2018-02-02] MEDS: LEVOTHYROXINE 25 MCG TAB PO SCH (08:20)
[2018-02-02] MEDS: POTASSIUM CHLORIDE ER 10 MEQ TAB.ER.PRT PO SCH (08:20)
[2018-02-02] MEDS: FUROSEMIDE 40 MG TAB PO SCH (08:31)
--- NOTE | 2018-02-02 10:54 | P.HP ---
Psychiatric H&P - . History & Physical: Allergies Allergy/AdvReac Type Severity Reaction Status Date / Time No Known Allergies Allergy Verified 02/01/18 17:46 Vital Signs Temp 98.8 F 02/02/18 07:00 Pulse 100 02/02/18 08:20 Resp 18 02/02/18 08:20 BP 143/81 02/02/18 08:20 Pulse Ox 98 02/01/18 18:19 Intake & Output 02/01/18 02/02/18 02/02/18 18:59 06:59 18:59 Weight 65.1 kg 02/02/18 10:44 IDENTIFYING DATA: This patient is a 73-year-old female who was admitted to the mental health unit from [facility] after the patient overdosed with cypo-suo-fizujta Mucinex. HPI: On 01/28/2018 the patient had overdosed with tcxy-flv-wrmlzfg Mucinex liquid. She states that she consumed one bottle over the course of an evening. She states this occurred in the context of her being ill recently diagnosed with bronchitis and she had difficulty sleeping. She reports she drank half a bottle went to sleep woke up and drink the other have to go back to sleep. She states it was never her intent to kill herself and she really didn't think it would harm her not being aware of the acetaminophen in that medication. She states that she has struggle with depression in the past but recently she has not felt depressed she has not been demonstrating any tearfulness or crying spells. She states prior to the bronchitis her sleep was stable appetite stable. She is endorsing no homicidal ideation. She is endorsing no auditory or visual hallucinations or specific delusions. There is no known history of hypomanic or manic episodes. She resides with her sister and niece. She states there are no firearms in the home. The patient did give me permission to speak with her niece Darlene who provides care for the patient. Darlene states that the patient told her that she drank the Mucinex in order to get Darlene's attention. She had been feeling less important as there were numerous other things in the household for Darlene to attend to. Darlene does not believe that the patient attempted to end her life and does not feel that the patient is acutely suicidal. PAST PSYCHIATRIC HISTORY: This is the patient's second inpatient psychiatric admission the first was in 2016. She experienced a significant episode of depression at this time with a significant weight loss due to staying in bed for prolonged periods of time. The patient was placed on Lexapro by her primary care physician 20 mg daily and it appears that medicine has helped. The patient also takes Ativan 0.5 mg twice daily as needed and melatonin 5 mg at bedtime. The patient's niece controls her medications for her. No other history of suicide attempt. The patient does not see a psychiatrist but did work with a therapist after her last admission name Gabriela. They are in the process of trying to locate Gabriela again to establish care with the patient is willing to work with another therapist if necessary. PMH: We'll thyroidism, hypertension, osteoarthritis, she has undergone bilateral total hip arthroplasties, hyperlipidemia ALLERGIES: NO KNOWN DRUG ALLERGIES MEDICATIONS: refer to [facility] CHEMICAL DEPENDENCY HISTORY: She reports no use of alcohol marijuana or any other illicit drugs. She states in her 20s she used to abuse diet pills. She has never been placed in residential treatment for chemical dependency reasons. FAMILY PSYCHIATRIC HISTORY: None reported, no suicides in the family FAMILY CHEMICAL DEPENDENCY HISTORY: She reports alcohol use disorder is prevalent in her family SOCIAL HISTORY: The patient is 73 years old she has been for approximately 4 years. She has 1 daughter. The patient resides with her sister and her niece. Her niece serves as a caregiver. 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 No history of service. No reported abuse history, no reported legal history. MENTAL STATUS EXAM: The patient is a female appearing her stated age she is dressed in hospital attire she is ambulating with a walker. Eye contact is appropriate. Speech is fluent spontaneous nonpressured. She indicates her mood is good despite the circumstances. She states she is not depressed. She is endorsing no hopelessness thinking she denies having any suicidal or homicidal ideation intent or plan. She is endorsing no auditory or visual hallucinations or any specific delusions. Thought process is relatively linear she demonstrates no tangential thinking loose associations or flight of ideas. She does not appear hypomanic or manic. She demonstrates no auditory or visual hallucinations or any specific delusions. She does not appear psychotic objectively. She demonstrates no verbal or physical aggressiveness she demonstrates no abnormal involuntary movements. Affect is appropriately expressive. She is oriented to person place and date. She is able to register 3 words and is able to spontaneously recall all 3 after delay of 4 minutes. She struggled in naming 5 major cities in the [place]. She named 3 major cities a smaller city and then named a state. She was able to name the months of the year backwards although she did this very slowly. She was able to abstract similarity questions she struggled with abstracting a proverb. She could name 3 objects. STRENGTHS/WEAKNESSES: Strengths: Housing, support from family, willingness to receive treatment weaknesses: Coping skill development INTELLECTUAL FUNCTIONING: Average IMPRESSIONS: [] 1. Major depressive disorder recurrent, anxiety unspecified 2. Medical comorbidities include hypertension, hypothyroidism, hyperlipidemia, osteoarthritis PLAN: The patient has been admitted to the mental health unit she is willing to sign in voluntarily for further evaluation. We will continue the Lexapro 20 mg daily, Ativan 0.5 mg up to twice daily as needed, melatonin 5 mg at bedtime. She will be seen by internal medicine for routine history and physical exam. Social work has met with the patient to complete a psychosocial assessment. I spoke with the patient's niece and primary caregiver Darlene to gain collateral information and discuss discharge planning. We will monitor the patient for safety and encourage her full participation in the milieu. Her medications will continue as written we will consider discharging her in the next 1-2 days after further evaluation for safety.
[2018-02-02] MEDS: ESCITALOPRAM 20 MG TAB PO SCH (11:47)
[2018-02-02] MEDS: IBUPROFEN 400 MG TAB PO PRN (11:49)
[2018-02-02] MEDS ORDERED: MULTIVITAMINS, THERA 1 EACH TAB PO SCH (12:00)
[2018-02-02 16:20] LABS: Basophils % (A) 1 %; Eosinophils # (A) 0.1 k/uL (0-0.7); Eosinophils % (A) 1 %; HCT 34.8 % (34.0-46.0); HGB 11.3 gm/dL (11.4-16.0); Hypochromasia Slight; Lymphocytes # (A) 1.2 k/uL (1.0-4.8); Lymphocytes % (A) 18 %; MCH 29.6 pg (25.0-35.0); MCHC 32.5 g/dL (31.0-37.0); MCV 91.1 fL (80.0-100.0); Mean Platelet Volume 6.5; Monocytes # (A) 0.5 k/uL (0-1.0); Monocytes % (A) 7 %; Neutrophils # (A) 4.5 k/uL (1.3-7.7); Neutrophils % (A) 70 %; Platelet Count 614 k/uL (150-450); Poikilocytosis Slight; RBC 3.82 m/uL (3.80-5.40); WBC 6.5 k/uL (3.8-10.6)
[2018-02-02 16:37] LABS: Potassium 4.1 mmol/L (3.5-5.1)
[2018-02-02 16:38] LABS: Albumin 3.9 g/dL (3.5-5.0); Total Bilirubin 0.3 mg/dL (0.2-1.3); Total Protein 7.3 g/dL (6.3-8.2)
--- NOTE | 2018-02-02 17:30 | CONS ---
CONSULTATION DATE OF SERVICE: 02/02/2018. REASON FOR CONSULTATION: Advice regarding COPD and other multiple medical issues requested by Dr. Mota. HISTORY OF PRESENT ILLNESS: This 73-year-old woman with a past history of COPD, history hypertension, DJD, history of multiple other medical issues, hypothyroidism being followed by Dr. Penn in the outpatient setting was admitted with acute intentional Tylenol overdose with Mucomyst to [facility]. The patient was treated with Mucomyst and the patient improved significantly. Patient also had tracheobronchitis and the patient was subsequently transferred to inpatient psych floor in [facility]. Otherwise at this time the patient is followed by Dr. Penn in the outpatient setting. There is no history of fever, rigors or chills. No history of headache, loss of consciousness, seizures. PAST MEDICAL HISTORY: History of DJD, history of COPD, hypertension, hyperlipidemia, history of back surgery, anxiety and depression. MEDICATIONS: Prior to admission include home medications are: 1. [place] 7.5 t.i.d. p.r.n. 2. Desyrel 50 mg q.48 hours. 3. Norvasc 10 mg. 4. Pravachol 40 mg q.h.s. 5. K-Dur 10 mEq p.o. daily. 6. Multivitamins one p.o. daily. 7. Melatonin 5 mg q.h.s. 8. Synthroid 25 mcg. 9. Ativan 0.5 mg b.i.d. 10.Neurontin 300 mg t.i.d. 11.Lasix 40 mg. 12.Iron sulfate 320 mg. 13.Lexapro 20 mg. 14.Ecotrin 81 mg p.o. daily. ALLERGIES: None. FAMILY HISTORY: No history of heart disease or strokes in the family. SOCIAL HISTORY: Previous history of smoking. No history of alcohol intake. REVIEW OF SYSTEMS: ENT: No diminished hearing or vision. CARDIOVASCULAR: No angina or palpitations. Respiratory: Mentioned earlier. GI: As mentioned earlier. : No dysuria. Nervous system: No numbness, weakness. Allergy: No asthma or hayfever. Musculoskeletal as mentioned earlier. Hematology/Oncology: No history of anemia. Endocrine: No history of diabetes or hypothyroidism. CONSTITUTIONAL: As mentioned earlier. Dermatology: Negative. Rheumatology: Negative. PHYSICAL EXAMINATION: The patient is alert and oriented times three. Pulse 83, blood pressure 130/50, respirations 16, temperature 98.8, pulse ox normal. HEENT: Conjunctivae normal. Oral mucosa moist. Neck is no jugular venous distention. No carotid bruit. No lymph node enlargement. Cardiovascular S1-S2 muffled. No S3 no S4. Respiratory: Breath sounds diminished in the bases. A few rhonchi. No crackles. ABDOMEN: Soft, nontender. No mass palpable. Legs no edema. Central nervous system: No focal deficits. Higher functions as mentioned earlier. Moves all four extremities. The patient walks with a walker. Otherwise, eye movements are fully noted. Patient has no nystagmus. No diplopia. No facial deviation. Power is normal. Tone is normal and no sensory abnormalities. Lymphatics: No lymph nodes palpable in the neck, axillae or groin. SKIN: No ulcer, rash, bleeding. Joints: No active deforming arthropathy. LABORATORY DATA: Labs are not available at this time. ASSESSMENT: 1. Status post intentional Tylenol overdose status post Mucomyst. 2. Depression. 3. Recent acute tracheobronchitis. 4. Chronic obstructive pulmonary disease. 5. Hypertension. 6. Hyperlipidemia. 7. History of recent diarrhea, improved. 8. History of musculoskeletal chest pain. 9. History of nonsustained ventricular tachycardia. 10.Hypothyroidism. 11.Anxiety and depression. RECOMMENDATIONS AND DISCUSSION: In this 73-year-old woman who presented with multiple medical problems, we will monitor the patient closely. Continue the current medications, management and symptomatic treatment. I would also recommend resume the home medications. I would also recommend to monitor the liver function closely. A CBC, CMP may be ordered and I will follow the patient closely. The LFTs elevated, recommend avoid hepatotoxic medications. Otherwise, home medications may be continued and recommend close follow up with Dr. Penn who is the primary physician. We will follow the patient closely with Dr. Mota. Thank you Dr. Mota for letting us participate in the care of this patient. MMODL / IJN: [id number] /
[2018-02-02] MEDS: MELATONIN 5 MG TABLET PO SCH (20:38)
[2018-02-02] MEDS: PRAVASTATIN SODIUM 40 MG TAB PO SCH (20:38)
[2018-02-03] MEDS: LEVOTHYROXINE 25 MCG TAB PO SCH (06:10)
[2018-02-03 06:34] VITALS: RESP 16; TEMP 98.5
[2018-02-03] MEDS: FUROSEMIDE 40 MG TAB PO SCH (08:27)
[2018-02-03] MEDS: GABAPENTIN 300 MG CAP PO SCH (08:27)
[2018-02-03] MEDS: METOPROLOL TARTRATE 50 MG TAB PO SCH (08:27)
[2018-02-03] MEDS: ESCITALOPRAM 20 MG TAB PO SCH (08:27)
[2018-02-03] MEDS: LISINOPRIL 10 MG TAB PO SCH (08:27)
[2018-02-03] MEDS: POTASSIUM CHLORIDE ER 10 MEQ TAB.ER.PRT PO SCH (08:28)
[2018-02-03] MEDS: FERROUS SULFATE 325 MG TAB PO SCH (08:28)
[2018-02-03] MEDS: amLODIPine 10 MG TAB PO SCH (08:28)
[2018-02-03] MEDS: ASPIRIN 81 MG PO SCH (08:28)
[2018-02-03 08:39] VITALS: BP 121/74; PULSE 104
--- NOTE | 2018-02-03 09:41 | P.DS ---
Providers Date of admission: 02/01/18 16:07 Expected date of discharge: 02/03/18 Attending physician: Maurice Mota Consults: 02/01/18 17:17 Consult Physician Routine Consulting Provider: Johanne Escalante Consult Reason/Comments: H and P and medical management Do you want consulting provider notified?: Yes Primary care physician: Stated None - Discharge Diagnosis(es) (1) Major depressive disorder Current Visit: Yes Status: Acute Priority: High (2) Anxiety Current Visit: Yes Status: Acute Priority: Medium Hospital Course: Brief summary of admission note: This patient is a 73-year-old female who was admitted to the mental health unit from [facility] status post overdose with nkbf-job-huthrrf Mucinex which contained acetaminophen. The patient had overdosed with a full bottle of Mucinex on 01/28/2018. She had reported to me it was in the context of feeling medically ill and needing to sleep. She reported drinking half a bottle going to sleep waking and consuming the other half. She does have a history of major depression but did not report she was experiencing any acute symptoms of depression. She was adamant that this was not a suicide attempt. The patient' s niece Darlene who is her caregiver was contacted with the patient's permission. Darlene also believes the patient did not intend to end her life. Darlene felt this was done out of a need for attention and frustration as Darlene had numerous obligations at the time in addition to the patient. For full details please refer to my psychiatric evaluation dated 02/02/2018. Summary of hospital course: The patient was admitted to the mental health unit voluntarily. We reviewed her presenting symptoms and medication options. She has been successfully treated with Lexapro 20 mg daily for quite some time since 2016. She has been using her Ativan 0.5 mg up to twice daily appropriately and melatonin 5 mg at bedtime. After speaking with the patient and her niece it was decided no medication change was required. We discussed having the patient follow up with a new individual psychotherapist and the patient was agreeable. The patient's was evaluated by internal medicine for routine history and physical exam. Social work met with the patient for a psychosocial assessment. A phone support meeting was conducted. Darlene had verbalize she is comfortable with the patient returning home today. Mental status exam: The patient is alert she is pleasant and cooperative. She is dressed in her own clothing hygiene grooming are adequate. She is ambulating with a wheeled walker. She states her mood is good she is looking forward to being discharged. She denies having any hopelessness thinking or any suicidal or homicidal ideation intent or plan. She is endorsing no auditory or visual hallucinations or any specific delusions. There is no observed evidence of psychosis. Thought process is linear she demonstrates no tangential thinking loose associations or flight of ideas. She does not appear hypomanic or manic. She is oriented to person place and date. She demonstrates no verbal or physical aggressiveness she demonstrates no abnormal involuntary movements. Affect is euthymic and appropriately expressive. Impressions 1. Major depressive disorder recurrent, anxiety unspecified 2. Medical comorbidities including hypertension, hypothyroidism, hyperlipidemia , osteoarthritis 3. Rule out cluster B personality disorder traits, requires further coping skill development Plan: The patient will be discharged mental health unit today to return home residing with her sister and niece. The patient will continue on Lexapro 20 mg daily, Ativan 0.5 mg up to twice daily as needed, melatonin 5 mg at bedtime. She will follow-up with mental health services to be arranged by social work. The patient will continue to follow the primary care physician as needed. There is no imminent safety risk she is appropriate for continued care as an outpatient. She is instructed to return to hospital if any acute safety concerns. Patient Condition at Discharge: Stable Plan - Discharge Summary Discharge Rx Participant: No New Discharge Prescriptions: New Lisinopril [Zestril] 10 mg PO DAILY #30 tab Metoprolol Tartrate [Lopressor] 50 mg PO BID #60 tab Continue Potassium Chloride ER [K-Dur 10] 10 meq PO DAILY #30 tab.er.prt Furosemide [Lasix] 40 mg PO DAILY #30 tab Levothyroxine Sodium [Synthroid] 25 mcg PO DAILY Escitalopram [Lexapro] 20 mg PO DAILY Multivit-Min/Iron/Folic/Lutein [[place] Women Tablet] 1 tab PO DAILY Pravastatin Sodium [Pravachol] 40 mg PO HS amLODIPine BESYLATE [Norvasc] 10 mg PO DAILY Gabapentin [Neurontin] 300 mg PO TID Melatonin 5 mg PO HS Ferrous Sulfate [Feosol] 325 mg PO DAILY #1 tab LORazepam [Ativan] 0.5 mg PO BID Aspirin EC [Ecotrin Low Dose] 81 mg PO DAILY Discontinued traZODone HCL [Desyrel] 50 mg PO Q48H HYDROcodone/APAP 7.5-325MG [[place] 7.5-325] 1 tab PO TID PRN PRN Reason: Pain Discharge Medication List Furosemide [Lasix] 40 mg PO DAILY #30 tab 05/12/16 [Rx] Potassium Chloride ER [K-Dur 10] 10 meq PO DAILY #30 tab.er.prt 05/12/16 [Rx] Escitalopram [Lexapro] 20 mg PO DAILY 08/18/16 [History] Levothyroxine Sodium [Synthroid] 25 mcg PO DAILY 08/18/16 [History] Multivit-Min/Iron/Folic/Lutein [[place] Women Tablet] 1 tab PO DAILY 02/28 [History] Pravastatin Sodium [Pravachol] 40 mg PO HS 08/18/16 [History] Gabapentin [Neurontin] 300 mg PO TID 11/03/16 [History] Melatonin 5 mg PO HS 11/03/16 [History] amLODIPine BESYLATE [Norvasc] 10 mg PO DAILY 11/03/16 [History] Ferrous Sulfate [Feosol] 325 mg PO DAILY #1 tab 11/17/16 [Rx] Aspirin EC [Ecotrin Low Dose] 81 mg PO DAILY 02/01/18 [History] LORazepam [Ativan] 0.5 mg PO BID 02/01/18 [History] Lisinopril [Zestril] 10 mg PO DAILY #30 tab 02/03/18 [Rx] Metoprolol Tartrate [Lopressor] 50 mg PO BID #60 tab 02/03/18 [Rx] Follow up Appointment(s)/Referral(s): Bryant Ferguson [Outside] - 02/09/18 11:00 am (Araceli
[2018-02-03] MEDS: IBUPROFEN 400 MG TAB PO PRN (10:40)
== END 2018-02-03 11:45 | disposition home or self-care (01) | DRG 885 ==
LOC: 3MHU 16:07
PROVIDERS: ADMIT Psychiatry & Neurology Psychiatry; ATTEND Psychiatry & Neurology Psychiatry
DX: F33.9 Major depressive disorder, recurrent, unspecified (principal); J44.9 Chronic obstructive pulmonary disease, unspecified; E03.9 Hypothyroidism, unspecified; F41.9 Anxiety disorder, unspecified; I10 Essential (primary) hypertension; T39.1X2A Poisoning by 4-Aminophenol derivatives, intentional self-harm, initial encounter; M19.90 Unspecified osteoarthritis, unspecified site; E78.5 Hyperlipidemia, unspecified; Z96.643 Presence of artificial hip joint, bilateral; Z79.891 Long term (current) use of opiate analgesic; Z79.899 Other long term (current) drug therapy; Z87.891 Personal history of nicotine dependence
CPT/HCPCS: 80053; 85025; 93005

== ENCOUNTER → 2018-08-02 | Outpatient (CLI) | payer MEDICARE, OTHER ==
--- NOTE | 2018-08-02 21:42 | CT ---
EXAMINATION TYPE: CT chest w con DATE OF EXAM: 08/02/2018 COMPARISON: None at this institution. HISTORY: Follow up for pulmonary nodule seen on prior ct. CT DLP: 275.3 mGycm. Automated Exposure Control for Dose Reduction was Utilized. TECHNIQUE: CT scan of the thorax is performed following with IV Contrast, patient injected with 100 mL of Isovue 300. FINDINGS: LUNGS: There is bleb formation anteriorly in both upper lobes with additional areas of reticulation a nd/or scarring seen bilaterally. Similar findings are seen in the superior aspect of bilateral lower lobes. Cannot exclude thin-walled cyst but favor scattered blebs. There is involvement of the mediast inal surface of the inferior left upper lobe noted. There is scarlike opacity in posterior aspect rig ht upper lobe measuring 7 x 4 mm axial image 19. No suspicious greater than 5 mm parenchymal nodule or mass is otherwise identified. No pleural effusion or pneumothorax is seen bilaterally. MEDIASTINUM: There are no greater than 1 cm hilar or mediastinal lymph nodes. Slightly prominent but subcentimeter pericarinal and subcarinal lymph nodes are seen. No pericardial effusion is seen. Asc ending aorta measures up to 3.6 cm in diameter axial image 25. Coronary artery calcification is prese nt which is noted marker for coronary artery disease. There is moderate to severe plaque in the desce nding aorta. OTHER: There is nonspecific 6 mm left breast nodule axial image 27. There is moderate size hiatal her mignon with abnormal twisting of the herniated stomach. Underlying S-shaped scoliosis is present. There is moderate to severe multilevel spurring and disc space narrowing. Stimulator device terminates in t he midthoracic spine. IMPRESSION: No suspicious nodules or masses or worrisome greater than 1 cm adenopathy identified. Chr onic parenchymal changes noted bilaterally. Advise mammogram and/or ultrasound follow-up for area of concern left breast.
== END | disposition home or self-care (01) ==
LOC: RADCTMAIN 16:41
PROVIDERS: ATTEND Internal Medicine
DX: R91.8 Other nonspecific abnormal finding of lung field (principal)
CPT/HCPCS: 82565; 84520; 71260; 36415; Q9967

== ENCOUNTER → 2018-08-25 | Outpatient (CLI) | payer MEDICARE, OTHER ==
[2018-08-25 16:30] LABS: HCT 37.6 % (34.0-46.0); HGB 12.5 gm/dL (11.4-16.0); MCH 30.3 pg (25.0-35.0); MCHC 33.2 g/dL (31.0-37.0); MCV 91.1 fL (80.0-100.0); Mean Platelet Volume 6.3; Platelet Count 345 k/uL (150-450); RBC 4.13 m/uL (3.80-5.40); RDW 14.3 % (11.5-15.5); WBC 6.2 k/uL (3.8-10.6)
[2018-08-25 16:39] LABS: Anion Gap 9 mmol/L; Blood Urea Nitrogen 12 mg/dL (7-17); Carbon Dioxide 29 mmol/L (22-30); Chloride 103 mmol/L (98-107); Potassium 3.7 mmol/L (3.5-5.1); Sodium 141 mmol/L (137-145)
== END ==
LOC: LABPAT 15:27
PROVIDERS: ATTEND Internal Medicine Interventional Cardiology
DX: Z01.812 Encounter for preprocedural laboratory examination (principal); I20.9 Angina pectoris, unspecified; E78.2 Mixed hyperlipidemia; R06.02 Shortness of breath
CPT/HCPCS: 36415; 80051; 82565; 84520; 85027

== ENCOUNTER 2018-09-07 07:55 | Day surgery (SDC) | payer MEDICARE, OTHER ==
[2018-09-01 10:59] VITALS: BMI 25.4
[~2018-09-07 07:55] MED LIST changes: +ALPRAZolam 0.25 MG TAB PO PRN; +ALPRAZolam 0.5 MG TAB PO PRN; +ASPIRIN 325 MG TAB PO STA; +ATORVASTATIN 80 MG TAB PO STA; -DIAZEPAM 5 MG TAB PO STA; -HYDROcodone/APAP 5-325MG 1 EACH TAB PO PRN; +NITROGLYCERIN SL TABS 0.4 MG TAB SUBLINGUAL PRN; -PREMYELOGRAM MEDICATION REVIEW 1 EACH MISC PO PRN; +SODIUM CHLORIDE 0.9% 1,000 ML in EMPTY BAG 1 BAG IV ONE
[2018-09-07 08:21] VITALS: TEMP 97.8
[2018-09-07] MEDS ORDERED: HEPARIN SODIUM 1,000 UN/ML (10ML VL) ONE (11:32)
[2018-09-07] MEDS ORDERED: VERAPAMIL 2.5 MG/ML 2 ML AMP ONE (11:32)
[2018-09-07] MEDS ORDERED: fentaNYL (PF) 50 MCG/ML 2 ML AMP ONE (11:32)
[2018-09-07] MEDS ORDERED: LIDOCAINE 1% INJ 10MG/ML (20 ML MDV) ONE (11:32)
[2018-09-07] MEDS ORDERED: fentaNYL (PF) 50 MCG/ML 2 ML AMP IV ONE (12:02)
[2018-09-07] MEDS ORDERED: LIDOCAINE 1% INJ 10MG/ML (10 ML MDV) SQ ONE (12:07)
[2018-09-07] MEDS ORDERED: VERAPAMIL SYRINGE (5 MG/10 ML) INTRAARTER ONE (12:08)
[2018-09-07] MEDS ORDERED: HEPARIN SODIUM 1,000 UN/ML (10ML VL) IV ONE (12:20)
[2018-09-07] MEDS ORDERED: IOPAMIDOL-370 125ML BTL INJ ONE (12:24)
[2018-09-07] MEDS ORDERED: RX INFO: IV CONTRAST WAS GIVEN 1 EACH MISC MISCELLANE PRN (12:36)
[2018-09-07] MEDS ORDERED: SODIUM CHLORIDE 0.9% 1,000 ML IV SCH (12:45)
--- NOTE | 2018-09-07 12:59 | CC ---
CARDIAC CATHETERIZATION REPORT Mrs. Ball is a 73-year-old female with known history of chronic tobacco use, hypertension, hyperlipidemia who recently has been complaining of exertional chest discomfort. She has underwent a CT scan that showed significant calcification in the coronary arteries. In view of that and her symptoms, recommendation made regarding cardiac catheterization. The procedures, risks and complication were discussed with the patient who is in full understanding and agreement. PROCEDURE: Patient was brought to the [facility] in a fasting semi-sedated state after receiving fentanyl and Benadryl and achieving moderate conscious sedated state. Using Xylocaine anesthesia and Seldinger technique, a 6-Burkinan sheath was introduced in the right radial artery. Selective right and left angiography performed using 3.5 bend right and left Luciano catheter, multiple views of coronary artery including hemiaxial views were obtained. Following that, a 5-Burkinan tight pigtail catheter was introduced in the left ventricle and a 30 degree LONGO view of the left ventricle was obtained. Following that, the catheter and sheath were removed, hemostasis was obtained with deployment of a TR band. There was no immediate complication. Patient is returned to room in stable condition. Of note, the patient received 3500 units of intravenous heparin as well as intra-arterial verapamil. FINDINGS: FLUOROSCOPY: There was calcification involving the left anterior descending artery. LEFT MAIN: This is a large-sized vessel, bifurcating into left circumflex, left anterior descending artery. The left main coronary artery has no evidence of significant obstructive disease. LEFT ANTERIOR DESCENDING ARTERY: This is a large-sized vessel, reaching toward the apex with a wraparound apex segment giving rise to 2 small diagonal branch. Left anterior descending artery has 10% plaque proximally. The rest of the vessel has no high-grade stenosis. LEFT CIRCUMFLEX: This is a nondominant vessel giving rise to three obtuse marginal branches, the first one is the largest in caliber. The second and third one are small in caliber. The left circumflex as well as branches have no evidence of obstructive coronary artery disease. RIGHT CORONARY ARTERY: This is a dominant vessel bifurcating distally into PDA and posterolateral segment branches, in the mid segment has 10%-20% plaque. The rest of the vessel has no high-grade stenosis. LEFT VENTRICULOGRAM: Left ventriculogram is performed in 30 degree LONGO view and revealed normal left ventricular size and systolic function, ejection fraction 60%. There was no significant mitral regurgitation. Calcification in the abdominal aorta was noted. HEMODYNAMICS: There was no gradient across the aortic valve. The left ventricular end-diastolic pressure is 14-18 mmHg. CONCLUSION: 1. Mildly calcified coronary arteries. 2. Mild plaque in the proximal LAD and mid right coronary artery. 3. Normal left ventricular size and systolic function. 4. Calcified abdominal aorta. RECOMMENDATION: In view of finding anatomy, recommend continue medical therapy with aggressive risk modifications being initiated. Those findings and recommendation were discussed with the patient and her family who are in full understanding and agreement. MMODL / IJN: [id number] /
[2018-09-07 15:13] VITALS: RESP 16
[2018-09-07] MEDS ORDERED: GABAPENTIN 300 MG CAP PO ONE (15:15)
[2018-09-07] MEDS ORDERED: LORazepam 0.5 MG TAB PO SCH (16:00)
[2018-09-07 18:45] VITALS: BP 122/69; PULSE 63
[2018-09-07] MEDS ORDERED: MELATONIN 5 MG TABLET PO SCH (21:00)
[2018-09-07] MEDS ORDERED: PRAVASTATIN SODIUM 40 MG TAB PO SCH (21:00)
[2018-09-07] MEDS ORDERED: METOPROLOL TARTRATE 50 MG TAB PO SCH (21:00)
[2018-09-07] MEDS ORDERED: GABAPENTIN 300 MG CAP PO SCH (22:00)
[2018-09-08] MEDS ORDERED: NON-FORMULARY DRUG (Aspirin Ec 81 MG) PO SCH (09:00)
[2018-09-08] MEDS ORDERED: POTASSIUM CHLORIDE ER 10 MEQ TAB.ER.PRT PO SCH (09:00)
[2018-09-08] MEDS ORDERED: amLODIPine 10 MG TAB PO SCH (09:00)
[2018-09-08] MEDS ORDERED: LISINOPRIL 10 MG TAB PO SCH (09:00)
[2018-09-08] MEDS ORDERED: FERROUS SULFATE 325 MG TAB PO SCH (09:00)
[2018-09-08] MEDS ORDERED: NON-FORMULARY DRUG (Multivit-Min/Iron/Folic/Lutein [Centrum Silver Women Tablet] 1 TAB) PO SCH (09:00)
[2018-09-08] MEDS ORDERED: LEVOTHYROXINE 25 MCG TAB PO SCH (09:00)
[2018-09-08] MEDS ORDERED: ESCITALOPRAM 20 MG TAB PO SCH (09:00)
== END 2018-09-07 17:45 | disposition home or self-care (01) ==
LOC: CATHCVL 07:55
PROVIDERS: ATTEND Internal Medicine Interventional Cardiology
DX: I25.110 Atherosclerotic heart disease of native coronary artery with unstable angina pectoris (principal); I70.0 Atherosclerosis of aorta; I73.9 Peripheral vascular disease, unspecified; R09.89 Other specified symptoms and signs involving the circulatory and respiratory systems; I10 Essential (primary) hypertension; E78.2 Mixed hyperlipidemia; F17.210 Nicotine dependence, cigarettes, uncomplicated; Z82.49 Family history of ischemic heart disease and other diseases of the circulatory system; Z79.82 Long term (current) use of aspirin; Z79.890 Hormone replacement therapy; Z79.899 Other long term (current) drug therapy
CPT/HCPCS: 93458; C1894; C1769; J3010; J1644; J2001; Q9967

== ENCOUNTER 2020-12-05 11:25 | Inpatient (IN) | payer MEDICARE, OTHER ==
[2020-12-05] MEDS: PANTOPRAZOLE 40 MG/10 ML VIAL IVP SCH (15:10)
[2020-12-05] MEDS ORDERED: ALBUTEROL HFA INHALER INHALATION PRN (21:25)
--- NOTE | 2020-12-05 21:45 | P.HPIM ---
History of Present Illness H&P Date: 12/05/20 Chief Complaint: Dark-colored stools. Patient is a 75-year-old female with a known history of hypertension, hyperlipidemia, hypothyroidism, COPD and previous history of smoking, anxiety/depression and DJD and history of ulcer and depression and other medical problems initially presents to [facility] with complaints of nausea vomiting and dark-colored stool and blood in the stool. Patient was told by her caregiver to go to the hospital. Patient is also having cough and more short of breath since [place]o time. Patient does have history of COPD. Patient was also tested positive for COVID-19 virus at [facility]. Patient has been having fatigue and generalized weakness. Patient is not on home oxygen. Patient has been afebrile. Saturating at 93% on room air currently. Hemoglobin did drop from 13-11. Patient was eventually transferred to [facility] due to drop in hemoglobin, dark stools and increased shortness of breath. Review of Systems Constitutional: Patient denies any fever or chills . No generalized weakness or weight loss. Abdomen: Patient does have nausea vomiting and dark stools. No abdominal pain.. Cardiovascular: Patient denies any chest pain or short of breath no palpitations. Respiratory: patient denied any cough or sputum production. No shortness of breath Neurologic: Patient denied any numbness or tingling headache. Musculoskeletal: Patient denies any complaints of joint swelling or deformity. Skin: Negative Psychiatric: Negative Endocrine: No heat or cold intolerance. No recent weight gain. Genitourinary: No dysuria or hematuria. All other 14 point ROS negative except the above Past Medical History Past Medical History: COPD, Hyperlipidemia, Hypertension, Musculoskeletal Disorder, Osteoarthritis (OA), Thyroid Disorder Additional Past Medical History / Comment(s): Degenerative Disc Disease, hx ulcer.chronic anxiety. Chronic depression. Chronic neuropathy. Chronic pain syndrome, History of Any Multi-Drug Resistant Organisms: None Reported Past Surgical History: Back Surgery, Hysterectomy, Joint Replacement Additional Past Surgical History / Comment(s): Bilateral Cataract surgery, Spinal Stimulator 2007, bilateral hip replacements. Past Anesthesia/Blood Transfusion Reactions: Motion Sickness Additional Past Anesthesia/Blood Transfusion Reaction / Comment(s): Hx blood transfusion-no reaction to it. Past Psychological History: Anxiety, Depression Additional Psychological History / Comment(s): . Smoking Status: Former smoker Past Alcohol Use History: None Reported, Occasional Additional Past Alcohol Use History / Comment(s): Quit smoking Jul 2016, started smoking as teen, smoked 1 PPD. 02/01/18 Quit smoking 01/30, but has been smoking again the last 6 months, 1/2 PPD. 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 - Past Family History Father Family Medical History: Myocardial Infarction ([place]), Seizure Disorder Additional Family Medical History / Comment(s): . Mother History Unknown: Yes Family Medical History: No Reported History Additional Family Medical History / Comment(s): Hit by car/killed. Brother(s) Additional Family Medical History / Comment(s): Alcoholism, pancreatitis, thyroid disorder, lumbar disc disease prostate issues Sister(s) Additional Family Medical History / Comment(s): Depression Daughter(s) Family Medical History: No Reported History Medications and Allergies Home Medications Medication Instructions Recorded Confirmed Type Escitalopram [Lexapro] 20 mg PO DAILY 10/30/19 12/05/20 History Furosemide [Lasix] 40 mg PO DAILY 10/30/19 12/05/20 History Gabapentin [Neurontin] 300 mg PO AC-TID 10/30/19 12/05/20 History LORazepam [Ativan] 0.5 mg PO AC-TID 10/30/19 12/05/20 History Levothyroxine Sodium 25 mcg PO DAILY 10/30/19 12/05/20 History Metoprolol Tartrate 25 mg PO BID 10/30/19 12/05/20 History Potassium Chloride 10 meq PO DAILY 10/30/19 12/05/20 History Pravastatin Sodium [Pravachol] 40 mg PO HS 10/30/19 12/05/20 History amLODIPine [Norvasc] 10 mg PO DAILY 10/30/19 12/05/20 History traMADol HCl [Ultram] 50 - 100 mg PO Q6H PRN 10/30/19 12/05/20 History Acetaminophen Tab [Tylenol Tab] 500 mg PO Q6H PRN 12/05/20 12/05/20 History Albuterol Inhaler [Ventolin Hfa 2 puff INHALATION RT-QID PRN 12/05/20 12/05/20 History Inhaler] Dicyclomine HCl 10 mg PO TID PRN 12/05/20 12/05/20 History Diphenoxylate HCl/Atropine 2 tab PO QID PRN 12/05/20 12/05/20 History [Lomotil 2.5-0.025 mg Tablet] Omeprazole 20 mg PO DAILY 12/05/20 12/05/20 History Ondansetron [Zofran] 4 mg PO Q12HR PRN 12/05/20 12/05/20 History Allergies Allergy/AdvReac Type Severity Reaction Status Date / Time No Known Allergies Allergy Verified 12/05/20 16:45 Physical Exam Vitals: Vital Signs Temp Pulse Resp BP Pulse Ox 12/05/20 13:10 98.1 F 98 18 123/67 93 L Intake and Output 12/05/20 12/05/20 12/05/20 06:59 14:59 22:59 Other: Weight 66.678 kg PHYSICAL EXAMINATION: Patient is lying in the bed comfortably, no acute distress, awake alert and oriented.. HEENT: Normocephalic. Neck is supple. Pupils reactive. Nostrils clear. Oral cavity is moist. Ears reveal no drainage. Neck reveals no JVD, carotid bruits, or thyromegaly. CHEST EXAMINATION: Trachea is central. Symmetrical expansion. Lung smith clear to auscultation and percussion. CARDIAC: Normal S1, S2 with no gallops. No murmurs ABDOMEN: Soft. Bowel sounds normal. No organomegaly. No abdominal bruits. Extremities: reveal no edema. No clubbing or cyanosis Neurologically awake, alert, oriented x3 with well-coordinated movements. No focal deficits noted Skin: No rash or skin lesions. Psychiatric: Coperative. Nonsuicidal Musculoskeletal: No joint swelling or deformity. Normal range of motion. Thrombosis Risk Factor Assmnt - DVT/VTE Prophylaxis DVT/VTE Prophylaxis: Mechanical Prophylaxis ordered - Choose All That Apply Any of the Below Risk Factors Present?: No Other Risk Factors: Yes Each Risk Factor Represents 3 Points: Age 75 years or older Thrombosis Risk Factor Assessment Total Risk Factor Score: 3 Thrombosis Risk Factor Assessment Level: Moderate Risk Assessment and Plan Assessment: Acute GI bleed with dark stools mild acute blood loss anemia COVID-19 infection along with increasing cough and shortness of breath Hypertension Hyperlipidemia COPD not in exacerbation Osteoarthritis Hypothyroidism Anxiety/depression Previous history of smoking Chronic pain syndrome and DVT prophylaxis with SCDs due to possible GI bleed Plan: Patient will be continued IV hydration with normal saline. Started on IV Protonix daily and monitor H&H. No active bleeding at this time. Patient will be started on clear liquid diet and GI service will be consulted. Monitor respiratory status and oxygen supplementation as needed. Vitamin supplementation and consider pulmonary evaluation. Continue to follow closely. Time with Patient: Greater than 30
[2020-12-05] MEDS: DICYCLOMINE 10 MG CAP PO PRN (22:11)
[2020-12-05] MEDS: SODIUM CHLORIDE 0.9% 1,000 ML IV SCH (22:11)
[2020-12-05] MEDS: ACETAMINOPHEN TAB 500 MG TAB PO PRN (23:56)
[2020-12-06] MEDS: LEVOTHYROXINE 25 MCG TAB PO SCH (05:45)
[2020-12-06 06:44] LABS: Basophils % (A) 0 %; Eosinophils % (A) 0 %; HCT 36.4 % (34.0-46.0); HGB 12.1 gm/dL (11.4-16.0); Lymphocytes # (A) 0.9 k/uL (1.0-4.8); Lymphocytes % (A) 18 %; MCH 29.3 pg (25.0-35.0); MCHC 33.1 g/dL (31.0-37.0); MCV 88.5 fL (80.0-100.0); Mean Platelet Volume 6.5; Monocytes # (A) 0.4 k/uL (0-1.0); Monocytes % (A) 8 %; Neutrophils # (A) 3.7 k/uL (1.3-7.7); Neutrophils % (A) 73 %; Platelet Count 192 k/uL (150-450); RBC 4.12 m/uL (3.80-5.40); WBC 5.1 k/uL (3.8-10.6)
[2020-12-06] MEDS: PANTOPRAZOLE 40 MG/10 ML VIAL IVP SCH (07:35)
[2020-12-06] MEDS: GABAPENTIN 300 MG CAP PO SCH ×3 (07:37→17:05)
[2020-12-06] MEDS: ASCORBIC ACID 500 MG TAB PO SCH (07:37)
[2020-12-06] MEDS: ZINC SULFATE 220 MG CAP PO SCH (07:37)
[2020-12-06] MEDS: METOPROLOL TARTRATE 25 MG TAB PO SCH ×2 (07:37→20:37)
[2020-12-06] MEDS: ESCITALOPRAM 20 MG TAB PO SCH (07:38)
[2020-12-06] MEDS: amLODIPine 10 MG TAB PO SCH (07:38)
--- NOTE | 2020-12-06 08:48 | XR ---
EXAMINATION TYPE: XR chest 1V DATE OF EXAM: 12/06/2020 COMPARISON: Chest x-ray dated 01/10/2020 HISTORY: Covid positive, abnormal chest x-ray TECHNIQUE: Single frontal view of the chest is obtained. FINDINGS: Thoracic cord stimulators are again noted. Interstitium is somewhat increased, question so me minimal patchy peripheral increased density. No evident pneumothorax or pleural effusion. Cardiac mediastinal silhouette is stable. Aorta is dense. Hiatal hernia with partial intrathoracic stomach is again seen. Some probable thickening noted of the minor fissure appears chronic. IMPRESSION: Interstitium appears prominently, consider pneumonia, follow-up
[2020-12-06] MEDS ORDERED: NON FORMULARY DRUG (Omeprazole [Omeprazole] 20 MG Capsule.Dr) PO SCH (09:00)
[2020-12-06 10:55] LABS: Ferritin 146.3 ng/mL (10.0-291.0)
[2020-12-06 11:02] LABS: African American GFR (CKD) 102.6 (60.0-200.0); Anion Gap 3.2 mmol/L (4.00-12.00); BUN/Creat Ratio 18.33 Ratio (12.00-20.00); C Reactive Protein 7.7 mg/dL (0.0-0.8); Calcium 8.5 mg/dL (8.7-10.3); Carbon Dioxide 25.8 mmol/L (21.6-31.8); Non-African American GFR(CKD) 88.5 (60.0-200.0); Potassium 2.9 mmol/L (3.5-5.5); Total Bilirubin 0.3 mg/dL (0.3-1.2)
--- NOTE | 2020-12-06 15:49 | CONS ---
CONSULTATION DATE OF DICTATION: December 06, 2020. REASON FOR CONSULTATION: Abdominal pain and diarrhea and questionable GI bleed. HISTORY OF PRESENT ILLNESS: The patient is a 75-year-old pleasant white female with history of hypertension, hyperlipidemia, hypothyroidism, and COPD who presented to [facility] with nausea, vomiting, and dark-colored stools and postprandial diarrhea for the last 2 months duration. Her symptoms were progressively getting worse and she was having diarrhea with bowel movements anywhere from 3-4 a day which are loose to watery in consistency. For the last 2 days, she thought her stools were somewhat dark in consistency and became concerned and came to the emergency room and in the ER at [facility] was noted to have positive COVID and she was subsequently transferred to [facility] for further evaluation. The patient does complain of some abdominal pain mostly in the lower abdominal area. She reports no rectal bleeding. Her initial hemoglobin was 13 and subsequently dropped to 12.5 g/dL. The patient denies any recent NSAID use. She is also complaining of some shortness of breath. PAST MEDICAL HISTORY: Significant for COPD, hypertension, hyperlipidemia, degenerative joint disease, hypothyroidism, and chronic pain syndrome, anxiety and depression. PAST SURGICAL HISTORY: Bilateral cataract surgery, spinal stimulator placement, bilateral hip replacement, back surgery, hysterectomy. SOCIAL HISTORY: Chronic smoker. No alcohol use. FAMILY HISTORY: Father had coronary artery disease and seizure disorder. Mother was killed in a car accident. MEDICATIONS: Medications at home include Lexapro, Lasix, Neurontin, Ativan, metoprolol, levothyroxine, Pravachol, Norvasc, Ultram, Tylenol, albuterol, dicyclomine, Lomotil, omeprazole, and Zofran. ALLERGIES: None. REVIEW OF SYSTEMS: CARDIOPULMONARY: She denies any chest pain or shortness of breath. GENITOURINARY: No dysuria or hematuria. MUSCULOSKELETAL: Unremarkable. SKIN: Unremarkable. ENDOCRINE: Unremarkable. PSYCHIATRY: History of anxiety and depression. NEUROLOGY: Unremarkable. ENT/VISION: Unremarkable. CONSTITUTIONAL: She thinks she lost about 10 pounds. No fever, chills, night sweats. PHYSICAL EXAMINATION: She appears comfortable, no apparent distress. Vital signs are stable. Blood pressure is 149/90, pulse rate 88, temperature 99.1. HEENT EXAMINATION: Unremarkable. Conjunctivae pink. Sclerae anicteric. Oral cavity, no lesions. NECK: No JVD or lymph node enlargement. CHEST: Was clear to auscultation HEART: Regular rate and rhythm. ABDOMEN: Soft. There was minimal tenderness in the lower abdominal area but rest of the abdomen was benign. Bowel sounds are positive. No organomegaly. EXTREMITIES: No pedal edema. NEURO: She is alert and oriented x3. No focal deficits. Chest x-ray done this morning showing prominent interstitium, consider pneumonia. LABS: Labs done from this morning WBC 5.1, hemoglobin 12.1, platelets are normal. Basic metabolic panel showed a potassium of 2.6, BUN 11, creatinine 0.6. CRP 7.7. Albumin 4. AST, ALT, T bilirubin and alkaline phosphatase are within normal limits. Coronavirus PCR in [facility] was positive. IMPRESSION: 1. This is a lady who presented to the hospital with chronic postprandial diarrhea for the last 2 months duration with bowel movements anywhere from 3-4 a day, but for the last 2 weeks, she thought her stools were somewhat dark in color. It is unclear whether she is having any active GI bleed at the present time. Her hemoglobin is 12.5 g/dL and in [facility] it was 13 g/dL. Her last EGD done by Dr. Schultz in October of 2019 showed small hiatal hernia and mild antral gastritis. She recalls having a colonoscopy several years ago. 2. COVID-19 infection with mild pneumonia. 3. History of hypertension and hyperlipidemia. 4. History of degenerative joint disease. 5. History of hypothyroidism. RECOMMENDATIONS: 1. Monitor CBC daily. 2. Stool for occult blood has been requested. 3. Continue symptomatic and supportive care. 4. Start on Protonix 40 mg twice daily. 5. No plans on any endoscopic intervention at the present time. 6. We will follow her clinically and based on her labs and her clinical condition, I will decide if she needs any endoscopic workup. 7. We will follow with you closely. Thank you for this consultation. MMODL / IJN: [id number] /
--- NOTE | 2020-12-06 16:42 | P.CNPUL ---
History of Present Illness Consult date: 12/06/20 Chief complaint: Diarrhea, COVID 19 History of present illness: 75-year-old female patient with known history of hypertension, hyperlipidemia, hypothyroidism, former smoker, COPD, anxiety/depression, presented to the [facility] 12/05/2020 for evaluation of diarrhea, nausea and vomiting since the time of . Patient was sent to the emergency department by her primary care provider, Shauna Cueva for evaluation of ongoing diarrhea. Patient states that she is becoming quite fatigued, had trouble moving about, and apparently did have some increasing cough and some shortness of breath. Patient denies any recent antibiotic use. She did have a mild drop in hemoglobin from 13-11. She apparently did have some dark-colored stools. She was saturating 93% on room air, she has been afebrile. Her lab evaluation at the [facility] showed a white blood cell count at 5.8, hemoglobin of 13, potassium of 2.8, BUN is 18, creatinine 0.8, d-dimer was normal at 0.46, BNP was within normal limits, lactate was 0.9. COVID 19 PCR was positive. Chest x- ray showed somewhat increased interstitium, with questionable minimal patchy peripheral increased densities. Patient was transferred to [facility] for possibility of colonoscopy, and GI evaluation. Her lab work this morning showed white blood cell count of 5.1, hemoglobin of 12.1, d-dimer 0.38, sodium is 145, potassium is 2.9, chloride is 116, BUN of 11, creatinine 0.6, ferritin level is 146, her LFTs are within normal limits, LDH is normal at 209, CRP 7.7, vital signs are stable, patient remains on room air, her pulse ox is 96%, she does have occasional cough and become short of breath on exertion, appears to be breathing comfortably at rest. Nursing reports diarrhea after any oral fluid or food intake, GI consultation was reviewed, there is no plan for endoscopic intervention at this time, patient has been started on PPI therapy, s he is on vitamins, she is on normal saline at 75 ML per hour. Review of Systems All systems: negative Constitutional: Reports fatigue, Reports malaise, Reports weakness, Denies chills, Denies fever Eyes: denies blurred vision, denies pain Ears, nose, mouth and throat: Denies headache, Denies sore throat Cardiovascular: Denies chest pain, Denies shortness of breath Respiratory: Reports cough, Reports dyspnea Gastrointestinal: Reports diarrhea, Reports nausea, Reports vomiting, Denies abdominal pain Genitourinary: Denies dysuria, Denies hematuria Musculoskeletal: Denies myalgias Integumentary: Denies pruritus, Denies rash Neurological: Denies numbness, Denies weakness Psychiatric: Denies anxiety, Denies depression Endocrine: Denies fatigue, Denies weight change Past Medical History Past Medical History: COPD, Hyperlipidemia, Hypertension, Musculoskeletal Disorder, Osteoarthritis (OA), Thyroid Disorder Additional Past Medical History / Comment(s): Degenerative Disc Disease, hx ul cer.chronic anxiety. Chronic depression. Chronic neuropathy. Chronic pain syndrome, History of Any Multi-Drug Resistant Organisms: None Reported Past Surgical History: Back Surgery, Hysterectomy, Joint Replacement Additional Past Surgical History / Comment(s): Bilateral Cataract surgery, Spinal Stimulator 2006, bilateral hip replacements. Past Anesthesia/Blood Transfusion Reactions: Motion Sickness Additional Past Anesthesia/Blood Transfusion Reaction / Comment(s): Hx blood transfusion-no reaction to it. Past Psychological History: Anxiety, Depression Additional Psychological History / Comment(s): . Smoking Status: Former smoker Past Alcohol Use History: None Reported, Occasional Additional Past Alcohol Use History / Comment(s): Quit smoking Jul 2016, started smoking as teen, smoked 1 PPD. 02/01/18 Quit smoking 01/30, but has been smoking again the last 6 months, 1/2 PPD. 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 - Past Family History Father Family Medical History: Myocardial Infarction ([place]), Seizure Disorder Additional Family Medical History / Comment(s): . Mother History Unknown: Yes Family Medical History: No Reported History Additional Family Medical History / Comment(s): Hit by car/killed. Brother(s) Additional Family Medical History / Comment(s): Alcoholism, pancreatitis, thyroid disorder, lumbar disc disease prostate issues Sister(s) Additional Family Medical History / Comment(s): Depression Daughter(s) Family Medical History: No Reported History Medications and Allergies Home Medications Medication Instructions Recorded Confirmed Type Escitalopram [Lexapro] 20 mg PO DAILY 10/30/19 12/05/20 History Furosemide [Lasix] 40 mg PO DAILY 10/30/19 12/05/20 History Gabapentin [Neurontin] 300 mg PO AC-TID 10/30/19 12/05/20 History LORazepam [Ativan] 0.5 mg PO AC-TID 10/30/19 12/05/20 History Levothyroxine Sodium 25 mcg PO DAILY 10/30/19 12/05/20 History Metoprolol Tartrate 25 mg PO BID 10/30/19 12/05/20 History Potassium Chloride 10 meq PO DAILY 10/30/19 12/05/20 History Pravastatin Sodium [Pravachol] 40 mg PO HS 10/30/19 12/05/20 History amLODIPine [Norvasc] 10 mg PO DAILY 10/30/19 12/05/20 History traMADol HCl [Ultram] 50 - 100 mg PO Q6H PRN 10/30/19 12/05/20 History Acetaminophen Tab [Tylenol Tab] 500 mg PO Q6H PRN 12/05/20 12/05/20 History Albuterol Inhaler [Ventolin Hfa 2 puff INHALATION RT-QID PRN 12/05/20 12/05/20 History Inhaler] Dicyclomine HCl 10 mg PO TID PRN 12/05/20 12/05/20 History Diphenoxylate HCl/Atropine 2 tab PO QID PRN 12/05/20 12/05/20 History [Lomotil 2.5-0.025 mg Tablet] Omeprazole 20 mg PO DAILY 12/05/20 12/05/20 History Ondansetron [Zofran] 4 mg PO Q12HR PRN 12/05/20 12/05/20 History Allergies Allergy/AdvReac Type Severity Reaction Status Date / Time No Known Allergies Allergy Verified 12/05/20 16:45 Physical Exam Vitals: Vital Signs Temp Pulse Resp BP Pulse Ox 12/06/20 14:00 99.6 F 86 18 133/67 92 L 12/06/20 10:00 99.1 F 88 18 149/70 95 12/06/20 07:38 93 20 12/06/20 05:20 98.6 F 93 20 143/68 96 12/06/20 03:33 160/82 12/06/20 01:57 98.7 F 108 H 20 194/76 92 L 12/05/20 20:30 99.3 F 111 H 20 158/75 91 L 12/05/20 17:41 99.5 F 104 H 22 160/75 92 L Intake and Output 12/06/20 12/06/20 12/06/20 06:59 14:59 22:59 Intake Total 1220 Balance 1220 Intake: Intake, IV Titration 900 Amount Sodium Chloride 0.9% 1, 900 000 ml @ 75 mls/hr IV . [id number] [facility] Rx#:[id number] Oral 320 Other: # Voids 3 # Bowel Movements 3 GENERAL EXAM: Alert, very pleasant, 75 year old white female, on room air, with a pulse ox of 96% comfortable in no apparent distress. HEAD: Normocephalic/atraumatic. EYES: Normal reaction of pupils, equal size. Conjunctiva pink, sclera white. NOSE: Clear with pink turbinates. THROAT: No erythema or exudates. NECK: No masses, no JVD, no thyroid enlargement, no adenopathy. CHEST: No chest wall deformity. Symmetrical expansion. LUNGS: Equal air entry with no crackles, wheeze, rhonchi or dullness. CVS: Regular rate and rhythm, normal S1 and S2, no gallops, no murmurs, no rubs ABDOMEN: Soft, nontender. No hepatosplenomegaly, normal bowel sounds, no guarding or rigidity. EXTREMITIES: No clubbing, no edema, no cyanosis, 2+ pulses and upper and lower extremities. MUSCULOSKELETAL: Muscle strength and tone normal. SPINE: No scoliosis or deformity SKIN: No rashes CENTRAL NERVOUS SYSTEM: Alert and oriented -3. No focal deficits, tone is normal in all 4 extremities. PSYCHIATRIC: Alert and oriented -3. Appropriate affect. Intact judgment and insight. Results - Laboratory Findings CBC and BMP: 12/06/20 06:14 12/06/20 06:14 PT/INR, D-dimer D-Dimer 0.38 mg/L FEU (<0.60) 12/06/20 06:14 Abnormal lab findings: Abnormal Labs 12/06/20 12/06/20 06:14 06:14 Lymphocytes # 0.9 L Potassium 2.9 L Chloride 116 H Anion Gap 3.20 L Calcium 8.5 L C-Reactive Protein 7.7 H Total Protein 6.0 L - Diagnostic Findings Chest x-ray: report reviewed, image reviewed Assessment and Plan Plan: Assessment: #1. Acute COVID 19 pneumonia, and patient is on room air, with very mild pulmonary symptoms, mild cough. This was an incidental finding when the patient went to seek evaluation for ongoing diarrhea since #2. Nausea, vomiting, dark-colored stools, diarrhea since , GI consultation has been requested #3. Mild anemia related to the above #4. Hypertension #5. Hyperlipidemia #6. Hypothyroidism #7. Chronic pain syndrome status post spinal stimulator placement #8. Anxiety #9. Depression #10. COPD #11. Chronic smoker #12. History of large hiatal hernia #13. History of iron deficiency anemia Plan: We'll continue supportive treatment, patient is not on any oxygen, vital signs are stable, mild cough, no acute respiratory distress, will monitor patient's oxygenation pattern, her inflammatory markers are low, d-dimer is within normal limits, GI evaluation was done. We'll continue to follow the patient and make further recommendations based on her clinical course I performed a history & physical examination of the patient and discussed their management with my nurse practitioner, Mariangel Guzman. I reviewed the nurse practitioner's note and agree with the documented findings and plan of care. Lung sounds are positive for diminished breath sounds. The findings and the i mpression was discussed with the patient. I attest to the documentation by the nurse practitioner. Time with Patient: Greater than 30
[2020-12-06] MEDS ORDERED: Potassium Replacement Protocol 1 EACH MISC MISCELLANE PRN (20:26)
[2020-12-06] MEDS: PRAVASTATIN SODIUM 40 MG TAB PO SCH (20:37)
[2020-12-06] MEDS: POTASSIUM CHLORIDE 10 MEQ in WATER FOR INJECTION 1 100ML.BAG IVPB SCH ×2 (20:38→22:13)
[2020-12-06] MEDS: SODIUM CHLORIDE 0.9% 1,000 ML IV SCH (22:13)
[2020-12-07] MEDS: POTASSIUM CHLORIDE 10 MEQ in WATER FOR INJECTION 1 100ML.BAG IVPB SCH ×4 (00:07→06:01)
[2020-12-07] MEDS: SODIUM CHLORIDE 0.9% 1,000 ML IV SCH ×3 (03:59→19:19)
[2020-12-07] MEDS: LEVOTHYROXINE 25 MCG TAB PO SCH (06:01)
[2020-12-07 06:52] LABS: Basophils % (A) 0 %; Eosinophils % (A) 0 %; HCT 35.4 % (34.0-46.0); HGB 11.6 gm/dL (11.4-16.0); Lymphocytes # (A) 0.7 k/uL (1.0-4.8); Lymphocytes % (A) 14 %; MCH 28.9 pg (25.0-35.0); MCHC 32.7 g/dL (31.0-37.0); MCV 88.4 fL (80.0-100.0); Mean Platelet Volume 6.5; Monocytes # (A) 0.3 k/uL (0-1.0); Monocytes % (A) 7 %; Neutrophils % (A) 78 %; Platelet Count 218 k/uL (150-450); RDW 14.8 % (11.5-15.5); WBC 5.2 k/uL (3.8-10.6)
[2020-12-07] MEDS: PANTOPRAZOLE 40 MG/10 ML VIAL IVP SCH (09:21)
[2020-12-07] MEDS: ESCITALOPRAM 20 MG TAB PO SCH (09:22)
[2020-12-07] MEDS: ASCORBIC ACID 500 MG TAB PO SCH (09:22)
[2020-12-07] MEDS: GABAPENTIN 300 MG CAP PO SCH ×3 (09:22→17:35)
[2020-12-07] MEDS: METOPROLOL TARTRATE 25 MG TAB PO SCH ×2 (09:22→20:46)
[2020-12-07] MEDS: ZINC SULFATE 220 MG CAP PO SCH (09:22)
[2020-12-07] MEDS: amLODIPine 10 MG TAB PO SCH (09:22)
[2020-12-07 09:36] LABS: African American GFR (CKD) >90 (>60 ml/min/1.73 sqM); Anion Gap 5 mmol/L; Blood Urea Nitrogen 5 mg/dL (7-17); Carbon Dioxide 25 mmol/L (22-30); Chloride 111 mmol/L (98-107); Glucose 103 mg/dL (74-99); Non-African American GFR(CKD) >90 (>60 ml/min/1.73 sqM); Potassium 2.9 mmol/L (3.5-5.1); Sodium 141 mmol/L (137-145)
--- NOTE | 2020-12-07 10:09 | PN ---
PROGRESS NOTE DATE OF SERVICE: 12/07/2020 Patient is a 75-year-old pleasant white female with COVID-19 infection/COVID-19 pneumonia. Admitted to the hospital with postprandial diarrhea and some dark-colored stools associated with nausea and vomiting. Her initial hemoglobin was 12 and today it is 11.6 g/dL. She had a couple of bowel movements through the night and a witnessed bowel movement that was almost loose and green in color. There was no bleeding noted. She denies any abdominal pain. She has continued to have postprandial diarrhea. Nausea, vomiting has resolved. Overall she is feeling better. PHYSICAL EXAMINATION: She appears comfortable. VITAL SIGNS: Stable. Blood pressure 138/64, pulse 83, temperature 98.9. HEENT: Examination unremarkable. Conjunctivae pink. Sclerae anicteric. Oral cavity, no lesions. NECK: No JVD or lymph node enlargement. CHEST: Clear to auscultation. HEART: Regular rate and rhythm. ABDOMEN: Soft, it was nontender, nondistended. Bowel sounds are positive. No organomegaly. EXTREMITIES: No pedal edema. NEURO: She is alert and oriented x3. No focal deficits. LABS: From today WBC 5.2, hemoglobin 11.6, platelets normal. IMPRESSION: 1. Acute COVID-19 pneumonia. Pulmonology is following the patient closely. 2. Abdominal pain with nausea, vomiting and postprandial diarrhea on and off for the last 2 months duration. No evidence of GI bleed as witnessed on the stool studies this morning. Hemoglobin remains stable. 3. History of hypertension. 4. History of gastroesophageal reflux disease. 5. History of hypothyroidism. RECOMMENDATIONS: 1. We will obtain stool studies to rule out C difficile colitis. 2. Continue Protonix 40 mg daily. 3. If the stool studies are negative, we will consider EGD and colonoscopy on Wednesday or on an outpatient basis to investigate her GI symptoms. The plan was discussed with the patient. She is agreeable to it. Thank you for this consultation. MMODL / ARVINDN: [id number] /
--- NOTE | 2020-12-07 11:02 | P.PN ---
Subjective Progress Note Date: 12/07/20 75-year-old female patient with known history of hypertension, hyperlipidemia, hypothyroidism, former smoker, COPD, anxiety/depression, presented to the [facility] 12/05/2020 for evaluation of diarrhea, nausea and vomiting since the time of . Patient was sent to the emergency department by her primary care provider, Shauna Cueva for evaluation of ongoing diarrhea. Patient states that she is becoming quite fatigued, had trouble moving about, and apparently did have some increasing cough and some shortness of breath. Patient denies any recent antibiotic use. She did have a mild drop in hemoglobin from 13-11. She apparently did have some dark-colored stools. She was saturating 93% on room air, she has been afebrile. Her lab evaluation at the [facility] showed a white blood cell count at 5.8, hemoglobin of 13, potassium of 2.8, BUN is 18, creatinine 0.8, d-dimer was normal at 0.46, BNP was within normal limits, lactate was 0.9. COVID 19 PCR was positive. Chest x- ray showed somewhat increased interstitium, with questionable minimal patchy peripheral increased densities. Patient was transferred to [facility] for possibility of colonoscopy, and GI evaluation. Her lab work this morning showed white blood cell count of 5.1, hemoglobin of 12.1, d-dimer 0.38, sodium is 145, potassium is 2.9, chloride is 116, BUN of 11, creatinine 0.6, ferritin level is 146, her LFTs are within normal limits, LDH is normal at 209, CRP 7.7, vital signs are stable, patient remains on room air, her pulse ox is 96%, she does have occasional cough and become short of breath on exertion, appears to be breathing comfortably at rest. Nursing reports diarrhea after any oral fluid or food intake, GI consultation was reviewed, there is no plan for endoscopic intervention at this time, patient has been started on PPI therapy, she is on vitamins, she is on normal saline at 75 ML per hour. On 12/07/2020, the patient is doing the same she has no signs of any significant respiratory distress. As mentioned earlier, the patient was found out to be positive for Covid 19. Complaint remains diarrhea the patient is awaiting to be evaluated by gastroenterology. Her inflammatory markers are essentially low and her pulse ox is above 90% on room air oxygen. Objective - Vital Signs Vital signs: Vital Signs Temp 98.9 F 12/07/20 05:39 Pulse 83 12/07/20 05:39 Resp 18 12/07/20 05:39 BP 138/64 12/07/20 05:39 Pulse Ox 94 L 12/07/20 05:39 Intake & Output 12/06/20 12/07/20 12/07/20 18:59 06:59 18:59 Intake Total 900 1800 Balance 900 1800 Intake: Intake, IV Titration 900 1800 Amount Potassium Chloride 10 meq 600 In Water For Injection 1 100ml.bag @ 100 mls/hr IVPB Q1HR [facility] Rx#: [id number] Sodium Chloride 0.9% 1, 900 1200 000 ml @ 75 mls/hr IV . [id number] [facility] Rx#:[id number] Other: Voiding Method Toilet Toilet # Bowel Movements 2 - Exam GENERAL EXAM: Alert, very pleasant, 75 year old white female, on room air, with a pulse ox of 96% comfortable in no apparent distress. HEAD: Normocephalic/atraumatic. EYES: Normal reaction of pupils, equal size. Conjunctiva pink, sclera white. NOSE: Clear with pink turbinates. THROAT: No erythema or exudates. NECK: No masses, no JVD, no thyroid enlargement, no adenopathy. CHEST: No chest wall deformity. Symmetrical expansion. LUNGS: Equal air entry with no crackles, wheeze, rhonchi or dullness. CVS: Regular rate and rhythm, normal S1 and S2, no gallops, no murmurs, no rubs ABDOMEN: Soft, nontender. No hepatosplenomegaly, normal bowel sounds, no gu arding or rigidity. EXTREMITIES: No clubbing, no edema, no cyanosis, 2+ pulses and upper and lower e xtremities. MUSCULOSKELETAL: Muscle strength and tone normal. SPINE: No scoliosis or deformity SKIN: No rashes CENTRAL NERVOUS SYSTEM: Alert and oriented -3. No focal deficits, tone is normal in all 4 extremities. PSYCHIATRIC: Alert and oriented -3. Appropriate affect. Intact judgment and insight. - Labs CBC & Chem 7: 12/07/20 06:15 12/07/20 06:15 Labs: Abnormal Lab Results - Last 24 Hours (Table) 12/06/20 12/07/20 12/07/20 Range/Units 06:14 06:15 06:15 Lymphocytes # 0.7 L (1.0-4.8) k/uL Potassium 2.9 L 2.9 L (3.5-5.5) mmol/L Chloride 116 H 111 H (96-109) mmol/L Anion Gap 3.20 L (4.00-12.00) mmol/L BUN 5 L (7-17) mg/dL Creatinine 0.42 L (0.52-1.04) mg/dL Glucose 103 H (74-99) mg/dL Calcium 8.5 L 8.0 L (8.7-10.3) mg/dL C-Reactive Protein 7.7 H (0.0-0.8) mg/dL Total Protein 6.0 L (6.2-8.2) g/dL Assessment and Plan Plan: #1. COVID 19 infection asymptomatic from the pulmonary standpoint, not sure of this infection occurred recently HAS been subacute or chronic. Nevertheless this patient is on room air, with very mild pulmonary symptoms, mild cough. This was an incidental finding when the patient went to seek evaluation for ongoing diarrhea since #2. Nausea, vomiting, dark-colored stools, diarrhea since , GI consultation has been requested #3. Mild anemia related to the above #4. Hypertension #5. Hyperlipidemia #6. Hypothyroidism #7. Chronic pain syndrome status post spinal stimulator placement #8. Anxiety #9. Depression #10. COPD #11. Chronic smoker #12. History of large hiatal hernia #13. History of iron deficiency anemia Plan Monitor the pulmonary status. EGD and colonoscopy by Wednesday. Stool for C. diff. Steroids have been stopped.
[2020-12-07 12:01] LABS: Magnesium 1.5 mg/dL (1.6-2.3)
[2020-12-07 12:38] LABS: Potassium 2.7 mmol/L (3.5-5.1)
[2020-12-07] MEDS ORDERED: Magnesium Replacement Protocol 1 EACH MISC MISCELLANE PRN ×2 (12:48→12:52)
[2020-12-07] MEDS ORDERED: Potassium Replacement Protocol 1 EACH MISC MISCELLANE PRN ×2 (12:48→18:12)
[2020-12-07] MEDS: MAGNESIUM SULFATE-D5W PMX 1 GM in DEXTROSE/WATER 1 100ML.BAG IVPB SCH ×3 (13:16→15:38)
[2020-12-07] MEDS: POTASSIUM CHLORIDE ER 20 MEQ TAB.ER PO SCH ×5 (13:17→19:18)
--- NOTE | 2020-12-07 16:47 | P.PN ---
Subjective Progress Note Date: 12/06/20 Principal diagnosis: Acute GI bleed/ minus acute blood loss anemia COVID 19 vitamin infection 75-year-old female with a known history of hypertension, hyperlipidemia, hypothyroidism, COPD and previous history of smoking, anxiety/depression and DJD and history of ulcer and depression and other medical problems initially presents to [facility] with complaints of nausea vomiting and dark-colored stool and blood in the stool. Patient was told by her caregiver to go to the hospital. Patient is also having cough and more short of breath since [place] time. Patient does have history of COPD. Patient was also tested positive for COVID-19 virus at [facility]. Patient has been having fatigue and generalized weakness. Patient is not on home oxygen. Patient has been afebrile. Saturating at 93% on room air currently. Hemoglobin did drop from 13-11. Patient was eventually transferred to [facility] due to drop in hemoglobin, dark stools and increased shortness of breath. Objective - Vital Signs Vital signs: Vital Signs Temp 99.1 F 12/06/20 10:00 Pulse 88 12/06/20 10:00 Resp 18 12/06/20 10:00 BP 149/70 12/06/20 10:00 Pulse Ox 95 12/06/20 10:00 Intake & Output 12/05/20 12/06/20 12/06/20 18:59 06:59 18:59 Intake Total 1220 Balance 1220 Weight 66.678 kg Intake: Intake, IV Titration 900 Amount Sodium Chloride 0.9% 1, 900 000 ml @ 75 mls/hr IV . [id number] [facility] Rx#:[id number] Oral 320 Other: # Voids 1 3 # Bowel Movements 3 - Exam Patient is lying in the bed comfortably, no acute distress, awake alert and oriented.. HEENT: Normocephalic. Neck is supple. Pupils reactive. Nostrils clear. Oral cavity is moist. Ears reveal no drainage. Neck reveals no JVD, carotid bruits, or thyromegaly. CHEST EXAMINATION: Trachea is central. Symmetrical expansion. Lung smith clear to auscultation and percussion. CARDIAC: Normal S1, S2 with no gallops. No murmurs ABDOMEN: Soft. Bowel sounds normal. No organomegaly. No abdominal bruits. Extremities: reveal no edema. No clubbing or cyanosis Neurologically awake, alert, oriented x3 with well-coordinated movements. No focal deficits noted Skin: No rash or skin lesions. Psychiatric: Coperative. Nonsuicidal Musculoskeletal: No joint swelling or deformity. Normal range of motion. - Labs CBC & Chem 7: 12/06/20 06:14 12/06/20 06:14 Labs: Abnormal Lab Results - Last 24 Hours (Table) 12/06/20 12/06/20 Range/Units 06:14 06:14 Lymphocytes # 0.9 L (1.0-4.8) k/uL Potassium 2.9 L (3.5-5.5) mmol/L Chloride 116 H (96-109) mmol/L Anion Gap 3.20 L (4.00-12.00) mmol/L Calcium 8.5 L (8.7-10.3) mg/dL C-Reactive Protein 7.7 H (0.0-0.8) mg/dL Total Protein 6.0 L (6.2-8.2) g/dL Assessment and Plan Assessment: Acute GI bleed with dark stools mild acute blood loss anemia COVID-19 infection along with increasing cough and shortness of breath Hypertension Hyperlipidemia COPD not in exacerbation Osteoarthritis Hypothyroidism Anxiety/depression Previous history of smoking Chronic pain syndrome and DVT prophylaxis with SCDs due to possible GI bleed Plan: Patient will be continued IV hydration with normal saline. Started on IV Protonix daily and monitor H&H. No active bleeding at this time. Patient will be started on clear liquid diet and GI service will be consulted. Monitor respiratory status and oxygen supplementation as needed. Vitamin supplementation and consider pulmonary evaluation. Continue to follow closely.
--- NOTE | 2020-12-07 16:48 | P.PN ---
Subjective Progress Note Date: 12/07/20 Principal diagnosis: Acute GI bleed/ minus acute blood loss anemia COVID 19 vitamin infection 75-year-old female with a known history of hypertension, hyperlipidemia, hypothyroidism, COPD and previous history of smoking, anxiety/depression and DJD and history of ulcer and depression and other medical problems initially presents to [facility] with complaints of nausea vomiting and dark-colored stool and blood in the stool. Patient was told by her caregiver to go to the hospital. Patient is also having cough and more short of breath since Geno time. Patient does have history of COPD. Patient was also tested positive for COVID-19 virus at [facility]. Patient has been having fatigue and generalized weakness. Patient is not on home oxygen. Patient has been afebrile. Saturating at 93% on room air currently. Hemoglobin did drop from 13-11. Patient was eventually transferred to [facility] due to drop in hemoglobin, dark stools and increased shortness of breath. 12/07/2020, the patient is doing the same she has no signs of any significant respiratory distress. As mentioned earlier, the patient was found out to be positive for Covid 19. Complaint remains diarrhea the patient has been evaluated by GI and is recommended stool check for C. diff and if negative patient is planned to undergo EGD/colonoscopy on Wednesday. Her inflammatory markers are essentially low and her pulse ox is above 90% on room air oxygen. Objective - Vital Signs Vital signs: Vital Signs Temp 98.9 F 12/07/20 05:39 Pulse 83 12/07/20 05:39 Resp 18 12/07/20 05:39 BP 138/64 12/07/20 05:39 Pulse Ox 94 L 12/07/20 05:39 Intake & Output 12/06/20 12/07/20 12/07/20 18:59 06:59 18:59 Intake Total 900 1800 Balance 900 1800 Intake: Intake, IV Titration 900 1800 Amount Potassium Chloride 10 meq 600 In Water For Injection 1 100ml.bag @ 100 mls/hr IVPB Q1HR [facility] Rx#: [id number] Sodium Chloride 0.9% 1, 900 1200 000 ml @ 75 mls/hr IV . [id number] [facility] Rx#:[id number] Other: Voiding Method Toilet Toilet # Bowel Movements 2 - Exam Patient is lying in the bed comfortably, no acute distress, awake alert and oriented.. HEENT: Normocephalic. Neck is supple. Pupils reactive. Nostrils clear. Oral cavity is moist. Ears reveal no drainage. Neck reveals no JVD, carotid bruits, or thyromegaly. CHEST EXAMINATION: Trachea is central. Symmetrical expansion. Lung smith clear to auscultation and percussion. CARDIAC: Normal S1, S2 with no gallops. No murmurs ABDOMEN: Soft. Bowel sounds normal. No organomegaly. No abdominal bruits. Extremities: reveal no edema. No clubbing or cyanosis Neurologically awake, alert, oriented x3 with well-coordinated movements. No focal deficits noted Skin: No rash or skin lesions. Psychiatric: Coperative. Nonsuicidal Musculoskeletal: No joint swelling or deformity. Normal range of motion. - Labs CBC & Chem 7: 12/07/20 06:15 12/07/20 11:32 Labs: Abnormal Lab Results - Last 24 Hours (Table) 12/07/20 12/07/20 12/07/20 Range/Units 06:15 06:15 11:32 Lymphocytes # 0.7 L (1.0-4.8) k/uL Potassium 2.9 L 2.7 L* (3.5-5.1) mmol/L Chloride 111 H (98-107) mmol/L BUN 5 L (7-17) mg/dL Creatinine 0.42 L (0.52-1.04) mg/dL Glucose 103 H (74-99) mg/dL Calcium 8.0 L (8.4-10.2) mg/dL Magnesium 1.5 L (1.6-2.3) mg/dL Assessment and Plan Assessment: Acute GI bleed with dark stools mild acute blood loss anemia COVID-19 infection along with increasing cough and shortness of breath Hypertension Hyperlipidemia COPD not in exacerbation Osteoarthritis Hypothyroidism Anxiety/depression Previous history of smoking Chronic pain syndrome and DVT prophylaxis with SCDs due to possible GI bleed Plan: Patient will be continued IV hydration with normal saline. Started on IV Protonix daily and monitor H&H. No active bleeding at this time. Patient will be started on clear liquid diet and GI service will be consulted. Monitor respiratory status and oxygen supplementation as needed. Vitamin supplementation and consider pulmonary evaluation. Continue to follow closely.
[2020-12-07] MEDS: ACETAMINOPHEN TAB 500 MG TAB PO PRN (18:23)
[2020-12-07] MEDS: PRAVASTATIN SODIUM 40 MG TAB PO SCH (20:46)
[2020-12-08] MEDS: POTASSIUM CHLORIDE ER 20 MEQ TAB.ER PO SCH ×5 (00:19→06:16)
[2020-12-08 04:25] LABS: Basophils % (A) 1 %; Eosinophils % (A) 0 %; HCT 34.9 % (34.0-46.0); HGB 11.5 gm/dL (11.4-16.0); Lymphocytes # (A) 0.7 k/uL (1.0-4.8); Lymphocytes % (A) 17 %; MCH 29.1 pg (25.0-35.0); MCHC 33.1 g/dL (31.0-37.0); MCV 87.9 fL (80.0-100.0); Mean Platelet Volume 6.6; Monocytes # (A) 0.3 k/uL (0-1.0); Monocytes % (A) 6 %; Neutrophils # (A) 3.1 k/uL (1.3-7.7); Neutrophils % (A) 75 %; Platelet Count 233 k/uL (150-450); RBC 3.97 m/uL (3.80-5.40); WBC 4.1 k/uL (3.8-10.6)
[2020-12-08 04:56] LABS: African American GFR (CKD) >90 (>60 ml/min/1.73 sqM); Anion Gap 5 mmol/L; Blood Urea Nitrogen 4 mg/dL (7-17); Calcium 7.9 mg/dL (8.4-10.2); Carbon Dioxide 24 mmol/L (22-30); Chloride 113 mmol/L (98-107); Glucose 116 mg/dL (74-99); Magnesium 2.1 mg/dL (1.6-2.3); Non-African American GFR(CKD) >90 (>60 ml/min/1.73 sqM); Potassium 3.2 mmol/L (3.5-5.1); Sodium 142 mmol/L (137-145)
[2020-12-08] MEDS: LEVOTHYROXINE 25 MCG TAB PO SCH (05:27)
[2020-12-08] MEDS: ASCORBIC ACID 500 MG TAB PO SCH (08:35)
[2020-12-08] MEDS: PANTOPRAZOLE 40 MG/10 ML VIAL IVP SCH (08:35)
[2020-12-08] MEDS: GABAPENTIN 300 MG CAP PO SCH ×3 (08:35→16:55)
[2020-12-08] MEDS: ZINC SULFATE 220 MG CAP PO SCH (08:35)
[2020-12-08] MEDS: ESCITALOPRAM 20 MG TAB PO SCH (08:35)
[2020-12-08] MEDS: amLODIPine 10 MG TAB PO SCH (08:35)
[2020-12-08] MEDS: METOPROLOL TARTRATE 25 MG TAB PO SCH ×2 (08:35→20:04)
[2020-12-08] MEDS: ACETAMINOPHEN TAB 500 MG TAB PO PRN (10:43)
--- NOTE | 2020-12-08 10:46 | P.PN ---
Subjective Progress Note Date: 12/08/20 75-year-old female patient with known history of hypertension, hyperlipidemia, hypothyroidism, former smoker, COPD, anxiety/depression, presented to the [facility] 12/05/2020 for evaluation of diarrhea, nausea and vomiting since the time of . Patient was sent to the emergency department by her primary care provider, Shauna Cueva for evaluation of ongoing diarrhea. Patient states that she is becoming quite fatigued, had trouble moving about, and apparently did have some increasing cough and some shortness of breath. Patient denies any recent antibiotic use. She did have a mild drop in hemoglobin from 13-11. She apparently did have some dark-colored stools. She was saturating 93% on room air, she has been afebrile. Her lab evaluation at the [facility] showed a white blood cell count at 5.8, hemoglobin of 13, potassium of 2.8, BUN is 18, creatinine 0.8, d-dimer was normal at 0.46, BNP was within normal limits, lactate was 0.9. COVID 19 PCR was positive. Chest x- ray showed somewhat increased interstitium, with questionable minimal patchy peripheral increased densities. Patient was transferred to [facility] for possibility of colonoscopy, and GI evaluation. Her lab work this morning showed white blood cell count of 5.1, hemoglobin of 12.1, d-dimer 0.38, sodium is 145, potassium is 2.9, chloride is 116, BUN of 11, creatinine 0.6, ferritin level is 146, her LFTs are within normal limits, LDH is normal at 209, CRP 7.7, vital signs are stable, patient remains on room air, her pulse ox is 96%, she does have occasional cough and become short of breath on exertion, appears to be breathing comfortably at rest. Nursing reports diarrhea after any oral fluid or food intake, GI consultation was reviewed, there is no plan for endoscopic intervention at this time, patient has been started on PPI therapy, she is on vitamins, she is on normal saline at 75 ML per hour. On 12/07/2020, the patient is doing the same she has no signs of any significant respiratory distress. As mentioned earlier, the patient was found out to be positive for Covid 19. Complaint remains diarrhea the patient is awaiting to be evaluated by gastroenterology. Her inflammatory markers are essentially low and her pulse ox is above 90% on room air oxygen. On 12/08/2020, the patient has still no respiratory symptoms. She is on room air oxygen with a normal pulse ox. No cough or sputum production. She is going to have an AV and colonoscopy by gastroenterology regarding her chronic diarrhea. Lab forte, the patient has a white count of 4.1 hemoglobin 11.5, she doesn't mild lymphopenia with a lymphocyte count of 0.7. This is attributed 18 related infection. Electrolytes are all within normal limits with exception s ome hypokalemia and the patient's potassium level has been replaced and a subsequent level is up to 4. Stool for C. diff has been negative. Objective - Vital Signs Vital signs: Vital Signs Temp 98.7 F 12/08/20 10:00 Pulse 68 12/08/20 10:00 Resp 17 12/08/20 10:00 BP 144/71 12/08/20 10:00 Pulse Ox 97 12/08/20 07:51 Intake & Output 12/07/20 12/08/20 12/08/20 18:59 06:59 18:59 Other: Voiding Method Toilet Toilet # Voids 3 1 # Bowel Movements 3 - Exam GENERAL EXAM: Alert, very pleasant, 75 year old white female, on room air, with a pulse ox of 96% comfortable in no apparent distress. HEAD: Normocephalic/atraumatic. EYES: Normal reaction of pupils, equal size. Conjunctiva pink, sclera white. NOSE: Clear with pink turbinates. THROAT: No erythema or exudates. NECK: No masses, no JVD, no thyroid enlargement, no adenopathy. CHEST: No chest wall deformity. Symmetrical expansion. LUNGS: Equal air entry with no crackles, wheeze, rhonchi or dullness. CVS: Regular rate and rhythm, normal S1 and S2, no gallops, no murmurs, no rubs ABDOMEN: Soft, nontender. No hepatosplenomegaly, normal bowel sounds, no guarding or rigidity. EXTREMITIES: No clubbing, no edema, no cyanosis, 2+ pulses and upper and lower extremities. MUSCULOSKELETAL: Muscle strength and tone normal. SPINE: No scoliosis or deformity SKIN: No rashes CENTRAL NERVOUS SYSTEM: Alert and oriented -3. No focal deficits, tone is normal in all 4 extremities. PSYCHIATRIC: Alert and oriented -3. Appropriate affect. Intact judgment and insight. - Labs CBC & Chem 7: 12/08/20 03:56 12/08/20 06:25 Labs: Abnormal Lab Results - Last 24 Hours (Table) 12/07/20 12/07/20 12/07/20 Range/Units 11:32 17:47 20:35 Lymphocytes # (1.0-4.8) k/uL Potassium 2.7 L* 3.4 L 2.8 L (3.5-5.1) mmol/L Chloride (98-107) mmol/L BUN (7-17) mg/dL Creatinine (0.52-1.04) mg/dL Glucose (74-99) mg/dL Calcium (8.4-10.2) mg/dL Magnesium 1.5 L (1.6-2.3) mg/dL 12/08/20 12/08/20 Range/Units 03:56 03:56 Lymphocytes # 0.7 L (1.0-4.8) k/uL Potassium 3.2 L (3.5-5.1) mmol/L Chloride 113 H (98-107) mmol/L BUN 4 L (7-17) mg/dL Creatinine 0.43 L (0.52-1.04) mg/dL Glucose 116 H (74-99) mg/dL Calcium 7.9 L (8.4-10.2) mg/dL Magnesium (1.6-2.3) mg/dL Assessment and Plan Plan: #1. COVID 19 infection asymptomatic from the pulmonary standpoint, not sure of this infection occurred recently HAS been subacute or chronic. Nevertheless this patient is on room air, with very mild pulmonary symptoms, mild cough. This was an incidental finding when the patient went to seek evaluation for ongoing diarrhea since #2. Nausea, vomiting, dark-colored stools, diarrhea since , GI consultation has been requested #3. Mild anemia related to the above #4. Hypertension #5. Hyperlipidemia #6. Hypothyroidism #7. Chronic pain syndrome status post spinal stimulator placement #8. Anxiety #9. Depression #10. COPD #11. Chronic smoker #12. History of large hiatal hernia #13. History of iron deficiency anemia Plan Monitor the pulmonary status. EGD and colonoscopy by Wednesday. Stool for C. diff. Steroids have been stopped. Pulse oximetry 97% on room air. No signs of any respiratory insufficiency for now. She does have some mild component of lymphopenia. Potassium level has been replaced.
--- NOTE | 2020-12-08 12:38 | PN ---
PROGRESS NOTE DATE OF DICTATION: December 08, 2020 Patient is a 75-year-old pleasant white female admitted to the hospital with abdominal pain, nausea, vomiting, and diarrhea for the last 2 weeks duration. Yesterday she had about 10 loose bowel movements daily. C difficile toxin was reported as negative. Stool occult was negative. She denies any rectal bleeding or melena. PHYSICAL EXAMINATION: She appears comfortable. No apparent distress. Vital signs stable. Blood pressure 122/71, pulse rate 68, temperature 98.7. HEENT examination unremarkable. Conjunctivae pink. Sclerae anicteric. Oral cavity no lesions. NECK: No JVD. No lymph node enlargement. CHEST was clear to auscultation. HEART: Regular rate and rhythm. ABDOMEN: Soft. Bowel sounds are positive. No organomegaly. EXTREMITIES: No pedal edema. SKIN: No rashes. NEUROLOGIC: Alert and oriented x3. No focal deficits. LABS: From today WBC 4.1, hemoglobin 11.5, platelets normal. Basic metabolic panel showed a potassium of 3.2, BUN and creatinine normal. Rest of the labs normal and C diff is negative. IMPRESSION: Abdominal pain, nausea, vomiting, diarrhea for the last 2 weeks duration. The patient had at least 10 bowel movements yesterday which are loose to watery in consistency. C diff is negative. No active bleeding noted. RECOMMENDATIONS: We will proceed with EGD and colonoscopy tomorrow to investigate her symptoms. I discussed with her risks, benefits and complications and she is agreeable to it. In the meantime, continue to follow labs closely. Thank you for this consultation. MMODL / IJN: [id number] /
[2020-12-08] MEDS: SODIUM CHLORIDE 0.9% 1,000 ML IV SCH (16:27)
[2020-12-08] MEDS ORDERED: PEG 3350-NA SULF,BICARB,CL/KCL 4,000 ML BOTTLE PO ONE (17:00)
--- NOTE | 2020-12-08 17:24 | P.PN ---
Subjective Progress Note Date: 12/08/20 Principal diagnosis: Acute GI bleed/ minus acute blood loss anemia COVID 19 vitamin infection 75-year-old female with a known history of hypertension, hyperlipidemia, hypothyroidism, COPD and previous history of smoking, anxiety/depression and DJD and history of ulcer and depression and other medical problems initially presents to [facility] with complaints of nausea vomiting and dark-colored stool and blood in the stool. Patient was told by her caregiver to go to the hospital. Patient is also having cough and more short of breath since Geno time. Patient does have history of COPD. Patient was also tested positive for COVID-19 virus at [facility]. Patient has been having fatigue and generalized weakness. Patient is not on home oxygen. Patient has been afebrile. Saturating at 93% on room air currently. Hemoglobin did drop from 13-11. Patient was eventually transferred to [facility] due to drop in hemoglobin, dark stools and increased shortness of breath. 12/07/2020, the patient is doing the same she has no signs of any significant respiratory distress. As mentioned earlier, the patient was found out to be positive for Covid 19. Complaint remains diarrhea the patient has been evaluated by GI and is recommended stool check for C. diff and if negative patient is planned to undergo EGD/colonoscopy on Wednesday. Her inflammatory markers are essentially low and her pulse ox is above 90% on room air oxygen. 12/08/2020, Patient is seen and evaluated for follow-up; remains asymptomatic. She is on room air oxygen with a normal pulse ox. No cough or sputum production. She is going to have an EGD and colonoscopy by gastroenterology regarding her chronic diarrhea. Labs are reviewed; white count of 4.1 hemoglobin 11.5, she doesn't mild lymphopenia with a lymphocyte count of 0.7. This is attributed 18 related infection. Electrolytes are all within normal limits with exception some hypokalemia and the patient's potassium level has been replaced and a subsequent level is up to 4. Stool for C. diff has been negative. Objective - Vital Signs Vital signs: Vital Signs Temp 98.0 F 12/08/20 10:00 Pulse 84 12/08/20 10:00 Resp 18 12/08/20 10:00 BP 123/62 12/08/20 10:00 Pulse Ox 97 12/08/20 07:51 Intake & Output 12/07/20 12/08/20 12/08/20 18:59 06:59 18:59 Other: Voiding Method Toilet Toilet # Voids 3 1 # Bowel Movements 3 - Exam Patient is lying in the bed comfortably, no acute distress, awake alert and oriented.. HEENT: Normocephalic. Neck is supple. Pupils reactive. Nostrils clear. Oral cavity is moist. Ears reveal no drainage. Neck reveals no JVD, carotid bruits, or thyromegaly. CHEST EXAMINATION: Trachea is central. Symmetrical expansion. Lung smith clear to auscultation and percussion. CARDIAC: Normal S1, S2 with no gallops. No murmurs ABDOMEN: Soft. Bowel sounds normal. No organomegaly. No abdominal bruits. Extremities: reveal no edema. No clubbing or cyanosis Neurologically awake, alert, oriented x3 with well-coordinated movements. No focal deficits noted Skin: No rash or skin lesions. Psychiatric: Coperative. Nonsuicidal Musculoskeletal: No joint swelling or deformity. Normal range of motion. - Labs CBC & Chem 7: 12/08/20 03:56 12/08/20 06:25 Labs: Abnormal Lab Results - Last 24 Hours (Table) 12/07/20 12/07/20 12/08/20 Range/Units 17:47 20:35 03:56 Lymphocytes # (1.0-4.8) k/uL Potassium 3.4 L 2.8 L 3.2 L (3.5-5.1) mmol/L Chloride 113 H (98-107) mmol/L BUN 4 L (7-17) mg/dL Creatinine 0.43 L (0.52-1.04) mg/dL Glucose 116 H (74-99) mg/dL Calcium 7.9 L (8.4-10.2) mg/dL 12/08/20 Range/Units 03:56 Lymphocytes # 0.7 L (1.0-4.8) k/uL Potassium (3.5-5.1) mmol/L Chloride (98-107) mmol/L BUN (7-17) mg/dL Creatinine (0.52-1.04) mg/dL Glucose (74-99) mg/dL Calcium (8.4-10.2) mg/dL Assessment and Plan Assessment: Acute GI bleed with dark stools mild acute blood loss anemia COVID-19 infection along with increasing cough and shortness of breath Hypertension Hyperlipidemia COPD not in exacerbation Osteoarthritis Hypothyroidism Anxiety/depression Previous history of smoking Chronic pain syndrome and DVT prophylaxis with SCDs due to possible GI bleed Plan: Patient will be continued IV hydration with normal saline. Started on IV Protonix daily and monitor H&H. No active bleeding at this time. Patient will be started on clear liquid diet and GI service will be consulted. Monitor respiratory status and oxygen supplementation as needed. Vitamin supplementation and consider pulmonary evaluation. Continue to follow closely.
[2020-12-08] MEDS: PRAVASTATIN SODIUM 40 MG TAB PO SCH (20:04)
[2020-12-09] MEDS: SODIUM CHLORIDE 0.9% 1,000 ML IV SCH (02:21)
[2020-12-09] MEDS: DICYCLOMINE 10 MG CAP PO PRN (03:12)
[2020-12-09] MEDS: LEVOTHYROXINE 25 MCG TAB PO SCH (04:14)
[2020-12-09 06:15] LABS: Basophils % (A) 0 %; Eosinophils % (A) 0 %; HCT 37.5 % (34.0-46.0); HGB 12.1 gm/dL (11.4-16.0); Lymphocytes # (A) 0.8 k/uL (1.0-4.8); Lymphocytes % (A) 13 %; MCH 27.9 pg (25.0-35.0); MCHC 32.3 g/dL (31.0-37.0); MCV 86.6 fL (80.0-100.0); Mean Platelet Volume 6.5; Monocytes # (A) 0.3 k/uL (0-1.0); Monocytes % (A) 6 %; Neutrophils # (A) 4.6 k/uL (1.3-7.7); Neutrophils % (A) 79 %; Platelet Count 333 k/uL (150-450); RBC 4.33 m/uL (3.80-5.40); RDW 14.9 % (11.5-15.5); WBC 5.8 k/uL (3.8-10.6)
[2020-12-09] MEDS: PANTOPRAZOLE 40 MG/10 ML VIAL IVP SCH (08:31)
[2020-12-09] MEDS: METOPROLOL TARTRATE 25 MG TAB PO SCH (08:31)
[2020-12-09 09:28] LABS: African American GFR (CKD) 117.3 (60.0-200.0); Non-African American GFR(CKD) 101.2 (60.0-200.0)
[2020-12-09] MEDS ORDERED: Potassium Replacement Protocol 1 EACH MISC MISCELLANE PRN (09:45)
[2020-12-09] MEDS: POTASSIUM CHLORIDE 10 MEQ in WATER FOR INJECTION 1 100ML.BAG IVPB SCH ×4 (09:58→17:16)
[2020-12-09] MEDS: ASCORBIC ACID 500 MG TAB PO SCH (11:16)
[2020-12-09] MEDS: amLODIPine 10 MG TAB PO SCH (11:16)
[2020-12-09] MEDS: GABAPENTIN 300 MG CAP PO SCH ×3 (11:16→18:25)
[2020-12-09] MEDS: ZINC SULFATE 220 MG CAP PO SCH (11:17)
[2020-12-09 11:40] LABS: Potassium 2.6 mmol/L (3.5-5.5)
[2020-12-09] MEDS: ESCITALOPRAM 20 MG TAB PO SCH (13:18)
[2020-12-09] MEDS ORDERED: KETOROLAC 15 MG/ML 1 ML VIAL IVP PRN (13:21)
--- NOTE | 2020-12-09 14:12 | P.PN ---
Subjective Progress Note Date: 12/09/20 Principal diagnosis: COVID 19 without significant pulmonary symptoms 75-year-old female patient with known history of hypertension, hyperlipidemia, hypothyroidism, former smoker, COPD, anxiety/depression, presented to the [facility] 12/05/2020 for evaluation of diarrhea, nausea and vomiting since the time of . Patient was sent to the emergency department by her primary care provider, Shauna Ceuva for evaluation of ongoing diarrhea. Patient states that she is becoming quite fatigued, had trouble moving about, and apparently did have some increasing cough and some shortness of breath. Patient denies any recent antibiotic use. She did have a mild drop in hemoglobin from 13-11. She apparently did have some dark-colored stools. She was saturating 93% on room air, she has been afebrile. Her lab evaluation at the [facility] showed a white blood cell count at 5.8, hemoglobin of 13, potassium of 2.8, BUN is 18, creatinine 0.8, d-dimer was normal at 0.46, BNP was within normal limits, lactate was 0.9. COVID 19 PCR was positive. Chest x- ray showed somewhat increased interstitium, with questionable minimal patchy peripheral increased densities. Patient was transferred to [facility] for possibility of colonoscopy, and GI evaluation. Her lab work this morning showed white blood cell count of 5.1, hemoglobin of 12.1, d-dimer 0.38, sodium is 145, potassium is 2.9, chloride is 116, BUN of 11, creatinine 0.6, fe rritin level is 146, her LFTs are within normal limits, LDH is normal at 209, CRP 7.7, vital signs are stable, patient remains on room air, her pulse ox is 96%, she does have occasional cough and become short of breath on exertion, appears to be breathing comfortably at rest. Nursing reports diarrhea after any oral fluid or food intake, GI consultation was reviewed, there is no plan for endoscopic intervention at this time, patient has been started on PPI therapy, she is on vitamins, she is on normal saline at 75 ML per hour. On 12/07/2020, the patient is doing the same she has no signs of any significant respiratory distress. As mentioned earlier, the patient was found out to be positive for Covid 19. Complaint remains diarrhea the patient is awaiting to be evaluated by gastroenterology. Her inflammatory markers are essentially low and her pulse ox is above 90% on room air oxygen. On 12/08/2020, the patient has still no respiratory symptoms. She is on room air oxygen with a normal pulse ox. No cough or sputum production. She is going to have an AV and colonoscopy by gastroenterology regarding her chronic diarrhea. Lab forte, the patient has a white count of 4.1 hemoglobin 11.5, she doesn't mild lymphopenia with a lymphocyte count of 0.7. This is attributed 18 related infection. Electrolytes are all within normal limits with exception some hypokalemia and the patient's potassium level has been replaced and a subsequent level is up to 4. Stool for C. diff has been negative. On 12/09/2020 patient seen in follow-up on medical floor, she is on room air, her pulse ox of 94%, she has been afebrile, she states she still having diarrhea, but no significant abdominal discomfort, no cough, no significant pulmonary symptoms, she is breathing comfortably, she is maintaining stable O2 saturations on room air. Has had no fever or chills. Today's labs have been reviewed, lymphocyte count slightly improved at 0.8, the rest of his CBC was within normal limits, potassium is 2.6, and patient has been getting potassium replacements, BUN is 6, and creatinine is 0.4, C. diff was negative, stool for occult blood was negative, her d-dimer on admission was low at 0.38. Patient continues on IV hydration with normal saline, she remains on IV Protonix, and she is being monitored for signs of any active bleeding. She is tolerating clear liquid diet, and GI service is following. Objective - Vital Signs Vital signs: Vital Signs Temp 98.8 F 12/09/20 09:35 Pulse 73 12/09/20 09:35 Resp 18 12/09/20 09:35 BP 135/66 12/09/20 09:35 Pulse Ox 94 L 12/09/20 09:35 Intake & Output 12/08/20 12/09/20 12/09/20 18:59 06:59 18:59 Other: Voiding Method Toilet # Voids 4 3 # Bowel Movements 2 3 - Exam GENERAL EXAM: Alert, very pleasant, 75 year old white female, on room air, with a pulse ox of 94% comfortable in no apparent distress. HEAD: Normocephalic/atraumatic. EYES: Normal reaction of pupils, equal size. Conjunctiva pink, sclera white. NOSE: Clear with pink turbinates. THROAT: No erythema or exudates. NECK: No masses, no JVD, no thyroid enlargement, no adenopathy. CHEST: No chest wall deformity. Symmetrical expansion. LUNGS: Equal air entry with no crackles, wheeze, rhonchi or dullness. CVS: Regular rate and rhythm, normal S1 and S2, no gallops, no murmurs, no rubs ABDOMEN: Soft, nontender. No hepatosplenomegaly, normal bowel sounds, no guarding or rigidity. EXTREMITIES: No clubbing, no edema, no cyanosis, 2+ pulses and upper and lower extremities. MUSCULOSKELETAL: Muscle strength and tone normal. SPINE: No scoliosis or deformity SKIN: No rashes CENTRAL NERVOUS SYSTEM: Alert and oriented -3. No focal deficits, tone is normal in all 4 extremities. PSYCHIATRIC: Alert and oriented -3. Appropriate affect. Intact judgment and insight. - Labs CBC & Chem 7: 12/09/20 05:31 12/09/20 05:31 Labs: Abnormal Lab Results - Last 24 Hours (Table) 12/09/20 12/09/20 Range/Units 05:31 05:31 Lymphocytes # 0.8 L (1.0-4.8) k/uL Potassium 2.6 L* (3.5-5.5) mmol/L BUN 6.0 L (9.0-27.0) mg/dL Creatinine 0.4 L (0.6-1.5) mg/dL Glucose 112 H (70-110) mg/dL Calcium 8.0 L (8.7-10.3) mg/dL Assessment and Plan Plan: Assessment: #1. Acute COVID 19 pneumonia, and patient is on room air, with very mild pulmonary symptoms, mild cough. This was an incidental finding when the patient went to seek evaluation for ongoing diarrhea since #2. Nausea, vomiting, dark-colored stools, diarrhea since , GI consultation has been requested #3. Mild anemia related to the above #4. Hypertension #5. Hyperlipidemia #6. Hypothyroidism #7. Chronic pain syndrome status post spinal stimulator placement #8. Anxiety #9. Depression #10. COPD #11. Chronic smoker #12. History of large hiatal hernia #13. History of iron deficiency anemia #14. Hypokalemia related to ongoing diarrhea Plan: Continue current medical treatment, from pulmonary perspective patient has been stable, she is on room air, no cough, no dyspnea, vital signs have been stable, no worsening pulmonary symptoms. Continue the vitamins, continue IV hydration, GI service is following in regards to ongoing diarrhea. Patient has remained stable since admission from pulmonary perspective, pulmonary service will sign off and follow on as needed basis I performed a history & physical examination of the patient and discussed their management with my nurse practitioner, Mariangel Guzman. I reviewed the nurse practitioner's note and agree with the documented findings and plan of care. Lung sounds are positive for diminished breath sounds. The findings and the impression was discussed with the patient. I attest to the documentation by the nurse practitioner. Time with Patient: Less than 30
[2020-12-09] MEDS ORDERED: PROPOFOL 10 MG/ML 20 ML VIAL IV ONE (14:52)
--- NOTE | 2020-12-09 14:52 | P.DS ---
Providers Date of admission: 12/05/20 13:03 Attending physician: Ian Daley Consults: 12/05/20 14:43 Consult Physician Routine Consulting Provider: Lily Blanca Consult Reason/Comments: Diarrhea 1 1/2 weeks, OB positive Do you want consulting provider notified?: Yes Placement Type Exists?: Yes 12/06/20 14:13 Consult Physician Routine Consulting Provider: Ashok David Consult Reason/Comments: COVID 9 viral infection Do you want consulting provider notified?: Yes Primary care physician: Stated None Hospital Course: 75-year-old female with a known history of hypertension, hyperlipidemia, hypothyroidism, COPD and previous history of smoking, anxiety/depression and DJD and history of ulcer and depression and other medical problems initially presents to [facility] with complaints of nausea vomiting and dark-colored stool and blood in the stool. Patient was told by her caregiver to go to the hospital. Patient is also having cough and more short of breath since [place] time. Patient does have history of COPD. Patient was also tested positive for COVID-19 virus at [facility]. Patient has been having fatigue and generalized weakness. Patient is not on home oxygen. Patient has been afebrile. Saturating at 93% on room air currently. Hemoglobin did drop from 13-11. Patient was eventually transferred to [facility] due to drop in hemoglobin, dark stools and increased shortness of breath. 12/07/2020, the patient is doing the same she has no signs of any significant respiratory distress. As mentioned earlier, the patient was found out to be positive for Covid 19. Complaint remains diarrhea the patient has been evaluated by GI and is recommended stool check for C. diff and if negative patient is planned to undergo EGD/colonoscopy on Wednesday. Her inflammatory markers are essentially low and her pulse ox is above 90% on room air oxygen. 12/08/2020, Patient is seen and evaluated for follow-up; remains asymptomatic. She is on room air oxygen with a normal pulse ox. No cough or sputum production. She is going to have an EGD and colonoscopy by gastroenterology regarding her chronic d iarrhea. Labs are reviewed; white count of 4.1 hemoglobin 11.5, she doesn't mild lymphopenia with a lymphocyte count of 0.7. This is attributed 18 related infection. Electrolytes are all within normal limits with exception some hypokalemia and the patient's potassium level has been replaced and a subsequent level is up to 4. Stool for C. diff has been negative. 12/09/2020 Patient is complaining of some crampy pain in the abdomen which is probably secondary to GoLYTELY. Patient the urine potassium is extremely low at 2.9 which will be replaced today. Patient will undergo upper GI endoscopy and colonoscopy for nausea vomiting diarrhea. There is a concern about the upper GI bleed as well. There are no more episodes of dark stools or blood in the stools. If cleared by gastroenterology patient will be discharged after endoscopy. PHYSICAL EXAMINATION: GENERAL: The patient is alert and oriented x3, not in any acute distress. Well developed, well nourished. HEENT: Pupils are round and equally reacting to light. EOMI. No scleral icterus. No conjunctival pallor. Normocephalic, atraumatic. No pharyngeal erythema. No thyromegaly. CARDIOVASCULAR: S1 and S2 present. No murmurs, rubs, or gallops. PULMONARY: Chest is clear to auscultation, no wheezing or crackles. ABDOMEN: Soft, nontender, nondistended, normoactive bowel sounds. No palpable organomegaly. MUSCULOSKELETAL: No joint swelling or deformity. EXTREMITIES: No cyanosis, clubbing, or pedal edema. NEUROLOGICAL: Gross neurological examination did not reveal any focal deficits. SKIN: No rashes. Assessment and Plan Assessment: Nausea vomiting diarrhea probably secondary to viral gastroenteritis may be from Covid of upper GI endoscopy and colonoscopy. COVID-19 infection patient is not requiring any oxygen Hypertension Hyperlipidemia COPD not in exacerbation Osteoarthritis Hypothyroidism Anxiety/depression Previous history of smoking Chronic pain syndrome Plan - Discharge Summary Discharge Rx Participant: Yes New Discharge Prescriptions: New Zinc Sulfate [Orazinc] 220 mg PO DAILY #20 cap Continue Acetaminophen Tab [Tylenol] 500 mg PO Q6H PRN PRN Reason: Pain Albuterol Inhaler [Ventolin Hfa Inhaler] 2 puff INHALATION RT-QID PRN PRN Reason: Shortness Of Breath Ondansetron [Zofran] 4 mg PO Q12HR PRN PRN Reason: Nausea Omeprazole 20 mg PO DAILY Diphenoxylate HCl/Atropine [Lomotil 2.5-0.025 mg Tablet] 2 tab PO QID PRN PRN Reason: Diarrhea Dicyclomine HCl 10 mg PO TID PRN PRN Reason: Gi Upset Changed Potassium Chloride 20 meq PO DAILY #0 Discontinued LORazepam [Ativan] 0.5 mg PO AC-TID No Action traMADol HCl [Ultram] 50 - 100 mg PO Q6H PRN PRN Reason: Pain Pravastatin Sodium [Pravachol] 40 mg PO HS Metoprolol Tartrate 25 mg PO BID amLODIPine [Norvasc] 10 mg PO DAILY Levothyroxine Sodium 25 mcg PO DAILY Gabapentin [Neurontin] 300 mg PO AC-TID Furosemide [Lasix] 40 mg PO DAILY Escitalopram [Lexapro] 20 mg PO DAILY Discharge Medication List Escitalopram [Lexapro] 20 mg PO DAILY 10/30/19 [History] Furosemide [Lasix] 40 mg PO DAILY 10/30/19 [History] Gabapentin [Neurontin] 300 mg PO AC-TID 10/30/19 [History] Levothyroxine Sodium 25 mcg PO DAILY 10/30/19 [History] Metoprolol Tartrate 25 mg PO BID 10/30/19 [History] Pravastatin Sodium [Pravachol] 40 mg PO HS 10/30/19 [History] amLODIPine [Norvasc] 10 mg PO DAILY 10/30/19 [History] traMADol HCl [Ultram] 50 - 100 mg PO Q6H PRN 10/30/19 [History] Acetaminophen Tab [Tylenol] 500 mg PO Q6H PRN 12/05/20 [History] Albuterol Inhaler [Ventolin Hfa Inhaler] 2 puff INHALATION RT-QID PRN 12/05/20 [History] Dicyclomine HCl 10 mg PO TID PRN 12/05/20 [History] Diphenoxylate HCl/Atropine [Lomotil 2.5-0.025 mg Tablet] 2 tab PO QID PRN 12/05/20 [History] Omeprazole 20 mg PO DAILY 12/05/20 [History] Ondansetron [Zofran] 4 mg PO Q12HR PRN 12/05/20 [History] Potassium Chloride 20 meq PO DAILY #0 12/09/20 [Rx] Zinc Sulfate [Orazinc] 220 mg PO DAILY #20 cap 12/09/20 [Rx]
[2020-12-09] MEDS ORDERED: IV FLUID CONTINUATION 1,000 ML IV ONE (14:57)
[2020-12-09] MEDS ORDERED: LACTATED RINGERS 1,000 ML IV ONE (15:35)
--- NOTE | 2020-12-09 16:48 | P.PCN ---
Date of Procedure: 12/09/20 Description of Procedure: Brief history: Patient is a pleasant 75-year-old female presenting to the hospital with abdominal pain, nausea and vomiting with associated diarrhea of 2 weeks duration. Testing for Clostridium difficile toxin negative. She is been scheduled for EGD and colonoscopy for further evaluation. Procedure performed: Esophagogastroduodenoscopy with biopsy and gold probe ablation Colonoscopy with polypectomy and gold probe ablation Estimated blood loss: Minimal. Preoperative diagnosis: Nausea and vomiting, diarrhea, altered bowel function, abdominal pain Anesthesia: MAC Procedure: After informed consent was obtained from the patient was brought into the endoscopy unit and IV sedation was administered by anesthesia under continuous monitoring. Initially upper endoscopy was done. The Olympus GF 190 video endoscope was inserted into the mouth and esophagus intubated without any difficulty and was gradually advanced into the stomach and duodenum and carefully examined. The bulb and second part of the duodenum appeared normal, with biopsies taken to rule out celiac sprue. 2 nonbleeding duodenal AVM noted in the bulb were treated with gold probe ablation. The scope was then withdrawn into the stomach adequately insufflated with air and upon careful examination the antrum and body, cardia and fundus appeared normal, except for some mild scattered erythema in the antrum and body suggestive of mild gastritis with biopsies taken. The scope was then withdrawn into the esophagus. The GE junction was located at 31 cm to the incisors, with a 7 cm hiatal hernia noted. It appeared regular with no erythema erosions or ulcerations. Rest of the esophagus appeared normal. Patient tolerated the procedure well. At this time the patient continued to remain sedation. Initial digital rectal examination was normal. Olympus CF 190 video colonoscope was then inserted into the rectum and gradually advanced to the cecum without any difficulty. Careful examination was performed as the scope was gradually being withdrawn. The prep was excellent. The cecum, ascending colon, transverse colon, descending colon, sigmoid colon and rectum appeared normal. Large 1.5 cm cecal polyp appearing tubulovillous in nature removed with hot snare polypectomy. Nonbleeding AVMs was noted in the cecum and ascending colon treated with gold probe ablation. Multiple diverticula noted in the sigmoid colon. Retroflexion was performed in the rectum and no lesions were noted. Patient tolerated the procedure well. Impression: 1. Mild gastritis. 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 Large hiatal hernia. Biopsies of the duodenum, antrum and body. 2. Large cecal polyp removed with hot snare polypectomy in piecemeal fashion. Gold probe ablation of AVM in the cecum and ascending colon. Mild sigmoid diverticulosis. Recommendations: Findings of this examination were discussed with the patient. Okay to resume diet. Okay to resume medications. Await pathology from polypectomy and biopsies. Recommend repeat colonoscopy in 1 year for piecemeal resection of large cecal polyp.
[2020-12-09] MEDS: POTASSIUM CHLORIDE ER 20 MEQ TAB.ER PO SCH ×2 (17:17→18:25)
[2020-12-09 17:50] VITALS: BP 131/72; PULSE 81; RESP 16; TEMP 98.4
== END 2020-12-09 21:00 | disposition home or self-care (01) | DRG 177 ==
LOC: 4SSUR 13:03
PROVIDERS: ADMIT Internal Medicine; ATTEND Internal Medicine
PROC: 0DB98ZX Excision of Duodenum, Via Natural or Artificial Opening Endoscopic, Diagnostic (ICD-10-PCS; principal; 2020-12-09 08:30)
PROC: 0D5K8ZZ Destruction of Ascending Colon, Via Natural or Artificial Opening Endoscopic (ICD-10-PCS; principal; 2020-12-09 08:30)
PROC: 0DBH8ZZ Excision of Cecum, Via Natural or Artificial Opening Endoscopic (ICD-10-PCS; principal; 2020-12-09 08:30)
PROC: 0D5H8ZZ Destruction of Cecum, Via Natural or Artificial Opening Endoscopic (ICD-10-PCS; principal; 2020-12-09 08:30)
PROC: 0DB78ZX Excision of Stomach, Pylorus, Via Natural or Artificial Opening Endoscopic, Diagnostic (ICD-10-PCS; principal; 2020-12-09 08:30)
PROC: 0D598ZZ Destruction of Duodenum, Via Natural or Artificial Opening Endoscopic (ICD-10-PCS; principal; 2020-12-09 08:30)
DX: U07.1 COVID-19 (principal); J12.82 Pneumonia due to coronavirus disease 2019; J44.0 Chronic obstructive pulmonary disease with (acute) lower respiratory infection; D62 Acute posthemorrhagic anemia; K92.1 Melena; Z96.643 Presence of artificial hip joint, bilateral; M19.90 Unspecified osteoarthritis, unspecified site; A08.4 Viral intestinal infection, unspecified; K63.5 Polyp of colon; K57.30 Diverticulosis of large intestine without perforation or abscess without bleeding; K55.20 Angiodysplasia of colon without hemorrhage; K44.9 Diaphragmatic hernia without obstruction or gangrene; K31.819 Angiodysplasia of stomach and duodenum without bleeding; K29.70 Gastritis, unspecified, without bleeding; I10 Essential (primary) hypertension; G89.4 Chronic pain syndrome; F41.9 Anxiety disorder, unspecified; F32.9 Major depressive disorder, single episode, unspecified; E87.6 Hypokalemia; F17.200 Nicotine dependence, unspecified, uncomplicated; E78.5 Hyperlipidemia, unspecified; E03.9 Hypothyroidism, unspecified; Z90.710 Acquired absence of both cervix and uterus; Z82.0 Family history of epilepsy and other diseases of the nervous system; Z82.49 Family history of ischemic heart disease and other diseases of the circulatory system; Z81.8 Family history of other mental and behavioral disorders; Z79.899 Other long term (current) drug therapy; Z79.890 Hormone replacement therapy
CPT/HCPCS: 43239; 43270; 45380; 45385; 45388; 71045; 80048; 80053; 82272; 82728; 83615; 83735; 84132; 85025; 85379; 86140; 87324; 88305; 88342; 94640

== ENCOUNTER → 2021-09-19 | Outpatient (CLI) | payer MEDICARE, OTHER ==
--- NOTE | 2021-09-19 22:30 | PE ---
EXAMINATION TYPE: PET CT fusion skull to thigh DATE OF EXAM: 09/19/2021 COMPARISON: Outside CTA chest October 30, 2019 HISTORY: Solitary pulmonary nodule. Abnormal outside CT. TECHNIQUE: Following the intravenous administration of 8.7 mCi of F-18 FDG, whole body images are pe rformed from the skull base to the midthigh. Images are reviewed on the computer in the coronal, axi al, and sagittal planes. Reconstructed rotating images are created on independent workstation and re viewed on the computer. A localization and attenuation correction CT is performed in conjunction wi th the PET scan. Blood glucose level equals 101 SCAN: Initial Scan FINDINGS: SKULL BASE AND NECK: No areas of abnormal hypermetabolic uptake. CHEST, MEDIASTINUM, AND HILAR REGION: [id number] underlying emphysematous change redemonstrated with scattered areas of groundglass along with linear and nodular opacities. No suspicious hypermeta bolic uptake. ABDOMEN AND PELVIS: Nonspecific diffuse bowel uptake. Normal excretion. No abnormal hypermetabolic up take. No adrenal masses. OSSEOUS STRUCTURES: Asymmetric increased uptake surrounding the right hip prosthesis could reflect in fection. Correlate clinically. No additional areas of abnormal hypermetabolic uptake. OTHER CT: Moderate to severe calcified plaque bilateral carotid bulb level. Bilateral scleral calcifi cations. Large sized hiatal hernia redemonstrated. Coronary artery calcification in the LAD distribution. Moderate to severe calcified plaque of the aorta extends into branch vessels. There is 3.6 cm thin-wa lled cyst or cystic lesion in the left pelvis axial image 211. Posterior lower abdominal left-sided s timulator device. Metallic hardware from left hip arthroplasty also present. Streak artifact from bilateral hip arthrop lasty limits evaluation of pelvic structures. Mild chronic compression type fracture T12 level redemo nstrated. Multilevel spurring in the thoracolumbar spine again seen with slight scoliotic curvature. IMPRESSION: No suspicious hypermetabolic uptake to suggest malignancy.
== END | disposition home or self-care (01) ==
LOC: RADPETMAIN 15:24
PROVIDERS: ATTEND Nurse Practitioner
DX: R91.1 Solitary pulmonary nodule (principal)
CPT/HCPCS: 78815; A9552

== ENCOUNTER 2021-11-13 09:01 | Day surgery (SDC) | payer MEDICARE, OTHER ==
[2021-11-12 08:35] VITALS: BMI 23.0
[~2021-11-13 09:01] MED LIST changes: -ALPRAZolam 0.25 MG TAB PO PRN; -ALPRAZolam 0.5 MG TAB PO PRN; -ASPIRIN 325 MG TAB PO STA; -ATORVASTATIN 80 MG TAB PO STA; +LACTATED RINGERS 1,000 ML IV SCH; -NITROGLYCERIN SL TABS 0.4 MG TAB SUBLINGUAL PRN; -SODIUM CHLORIDE 0.9% 1,000 ML in EMPTY BAG 1 BAG IV ONE
[2021-11-13] MEDS ORDERED: LIDOCAINE 1% (10MG/ML) FOR IV START INTRADERMA ONE (10:01)
[2021-11-13 10:02] VITALS: TEMP 96.8
[2021-11-13] MEDS ORDERED: PROPOFOL 10 MG/ML 20 ML VIAL IV ONE (10:39)
--- NOTE | 2021-11-13 10:56 | P.PCN ---
Date of Procedure: 11/13/21 Implants: BRIEF HISTORY: Patient is a 76-year-old pleasant white female scheduled for an elective colonoscopy as a part of evaluation of prior history of colon polyps. PROCEDURE PERFORMED: Colonoscopy with snare polypectomy. PREOPERATIVE DIAGNOSIS: History of colon polyps. IV sedation per Anesthesia. PROCEDURE: After informed consent was obtained, the patient, was brought into the endoscopy unit. IV sedation was administered by Anesthesia under continuous monitoring. Digital rectal examination was normal. Initially the Olympus CF-160 flexible video colonoscope was then inserted in the rectum, gradually advanced into the cecum without any difficulty. Careful examination was performed as the scope was gradually being withdrawn. Ileocecal valve and the appendiceal orifice were visualized and appeared normal. Prep was excellent. In the base of the cecum there was a 1 cm broad-based polyp that was removed by piecemeal snare polypectomy. Rest of the ascending colon, transverse colon, descending colon, sigmoid colon, and rectum appeared normal. Retroflexion was performed in the rectum and no lesions were seen. The patient tolerated the procedure well. IMPRESSION: 1 cm broad-based cecal polyp status post piecemeal snare polypectomy Rest of the colon appeared normal RECOMMENDATIONS: Findings of this examination were discussed with the patient as well as her family. She was advised to follow with the biopsy results and if the biopsy results adenoma she can have a repeat colonoscopy in 3 years.
[2021-11-13 11:28] VITALS: BP 117/69; PULSE 77; RESP 16
== END 2021-11-13 11:49 | disposition home or self-care (01) ==
LOC: ORWHC2ENDO 09:01
PROVIDERS: ATTEND Internal Medicine Gastroenterology
DX: Z12.11 Encounter for screening for malignant neoplasm of colon (principal); D12.0 Benign neoplasm of cecum; Z86.010 Personal history of colon polyps; K21.9 Gastro-esophageal reflux disease without esophagitis; I10 Essential (primary) hypertension; E78.5 Hyperlipidemia, unspecified; E07.9 Disorder of thyroid, unspecified; Z98.890 Other specified postprocedural states; Z79.890 Hormone replacement therapy; Z79.2 Long term (current) use of antibiotics; Z79.82 Long term (current) use of aspirin; Z79.899 Other long term (current) drug therapy
CPT/HCPCS: 88305; 45385; J2704

== ENCOUNTER → 2022-09-08 | Outpatient (CLI) | payer MEDICARE, OTHER ==
[2022-09-08 14:26] LABS: HCT 29.6 % (37.2-46.3); HGB 8.6 g/dL (12.0-15.0); MCH 26.6 pg (27.0-32.0); MCHC 29.1 g/dL (32.0-37.0); MCV 91.6 fL (80.0-97.0); Mean Platelet Volume 8.9 fL (9.5-12.2); NRBC Per 100 WBC 0 /100 WBCS (0.0-0.0); Platelet Count 567 X 10*3/uL (140-440); RBC 3.23 X 10*6/uL (4.10-5.20); RDW 15.6 % (11.5-14.5); WBC 10.33 X 10*3/uL (4.50-10.00)
[2022-09-08 19:21] LABS: African American GFR (CKD) 57.6 (60.0-200.0); Anion Gap 10.9 mmol/L (10.00-18.00); Blood Urea Nitrogen 14.1 mg/dL (9.0-27.0); Carbon Dioxide 26.3 mmol/L (20.0-27.5); Non-African American GFR(CKD) 49.7 (60.0-200.0); Potassium 5.1 mmol/L (3.5-5.5)
== END | disposition home or self-care (01) ==
LOC: LABPAT 10:24
PROVIDERS: ATTEND Internal Medicine Interventional Cardiology
DX: Z01.812 Encounter for preprocedural laboratory examination (principal); R06.02 Shortness of breath
CPT/HCPCS: 80051; 82565; 84520; 85027

== ENCOUNTER 2022-09-22 07:03 | Day surgery (SDC) | payer MEDICARE, OTHER ==
[2022-09-18 10:38] VITALS: BMI 25.9
[2022-09-22] MEDS ORDERED: LACTATED RINGERS 1,000 ML IV SCH (07:36)
[2022-09-22] MEDS ORDERED: LIDOCAINE 1% (10MG/ML) FOR IV START INTRADERMA PRN (07:36)
[2022-09-22 07:53] VITALS: TEMP 97.6
[2022-09-22] MEDS ORDERED: LIDOCAINE 2% INJ 20 MG/ML (2 ML VIAL) ONE (08:43)
[2022-09-22] MEDS ORDERED: PROPOFOL 10 MG/ML 20 ML VIAL IV ONE (08:43)
--- NOTE | 2022-09-22 09:05 | P.PCN ---
Date of Procedure: 09/22/22 Procedure(s) Performed: BRIEF HISTORY: Patient is a 77-year-old, pleasant, white female scheduled for an upper endoscopy as part of evaluation of iron deficiency anemia and intermittent black tarry stools. She had colonoscopy in October 2021 that showed a 1 m cecal polyp. She has prior history of peptic ulcer disease.. PROCEDURE PERFORMED: Esophagogastroduodenoscopy with cautery using a gold probe. PREOPERATIVE DIAGNOSIS: Iron deficiency anemia and intermittent black tarry stools. IV sedation per anesthesia. PROCEDURE: After informed consent was obtained, the patient was brought into the endoscopy unit. IV sedation was administered by Anesthesia under continuous monitoring. Initially the Olympus GIF-140 video endoscope was inserted into the mouth. Esophagus intubated without any difficulty. It was gradually advanced into the stomach and duodenum and carefully examined. The bulb of the duodenum appeared normal. In the second part of the duodenum there were 2 small nonbleeding arteriovenous malformations measuring about 5 mm in size which were cauterized using a gold probe. The scope at this time was withdrawn to the stomach, adequately insufflated with air, and upon careful examination, mucosa of the antrum, body, cardia and the fundus appeared normal. The scope was then withdrawn into the esophagus. The GE junction was located at 31 cm from the incisors. Moderate size hiatal hernia noted. The esophagus appeared normal. There were no erosions or ulcerations seen and the patient tolerated the procedure well. IMPRESSION: 1. 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 2. Moderate size hiatal hernia. RECOMMENDATIONS: The findings of this examination were discussed with the patient the lesser family. She was advised to continue with iron supplements and monitor CBC periodically. If she continues to have persistent iron deficiency anemia she may be a candidate for small bowel capsule endoscopy to evaluate further..
[2022-09-22 09:49] VITALS: RESP 16
[2022-09-22 09:50] VITALS: BP 140/68; PULSE 70
== END 2022-09-22 09:51 | disposition home or self-care (01) ==
LOC: ORWHC2ENDO 07:03
PROVIDERS: ATTEND Internal Medicine Gastroenterology
DX: D50.9 Iron deficiency anemia, unspecified (principal); Q27.30 Arteriovenous malformation, site unspecified; K44.9 Diaphragmatic hernia without obstruction or gangrene; Z87.11 Personal history of peptic ulcer disease
CPT/HCPCS: 43270; J2704; J2001

== ENCOUNTER → 2022-11-12 | Day surgery (SDC) | payer MEDICARE, OTHER ==
[2022-11-11 08:42] VITALS: BMI 25.7
[~2022-11-12] MED LIST changes: -LACTATED RINGERS 1,000 ML IV SCH; +SIMETHICONE 40 MG/0.6 ML DROPS 2,000 MG/30 ML BOTTLE PO ONE
[2022-11-12 06:56] VITALS: BP 132/59; PULSE 104; RESP 18; TEMP 97.9
== END ==
LOC: ORWHC2ENDO 06:24
PROVIDERS: ATTEND Internal Medicine Gastroenterology
DX: D50.9 Iron deficiency anemia, unspecified (principal)
CPT/HCPCS: 91110

== ENCOUNTER → 2023-03-24 | Outpatient (CLI) | payer MEDICARE, OTHER ==
[2023-03-24 21:35] LABS: Basophils # (A) 0.04 X 10*3/uL (0.00-0.10); Basophils % (A) 0.4 %; Eosinophils # (A) 0.21 X 10*3/uL (0.04-0.35); Eosinophils % (A) 2.2 %; HCT 33.9 % (37.2-46.3); HGB 9.6 g/dL (12.0-15.0); Immature Grans, Automated 0.3 %; Lymphocytes # (A) 1.81 X 10*3/uL (0.90-5.00); Lymphocytes % (A) 19.1 %; MCH 27.7 pg (27.0-32.0); MCHC 28.3 g/dL (32.0-37.0); MCV 97.7 fL (80.0-97.0); Mean Platelet Volume 9.1 fL (9.5-12.2); Monocytes # (A) 0.73 X 10*3/uL (0.20-1.00); Monocytes % (A) 7.7 %; NRBC Per 100 WBC 0 /100 WBCS (0.0-0.0); Neutrophils # (A) 6.65 X 10*3/uL (1.80-7.70); Neutrophils % (A) 70.3 %; Platelet Count 408 X 10*3/uL (140-440); RBC 3.47 X 10*6/uL (4.10-5.20); RDW 16.9 % (11.5-14.5); WBC 9.47 X 10*3/uL (4.50-10.00)
[2023-03-24 21:55] LABS: Erythrocyte Sedimentation Rate 109 mm/Hr (0-30)
== END | disposition home or self-care (01) ==
LOC: LABWHC1 13:58
PROVIDERS: ATTEND Orthopaedic Surgery
DX: M25.551 Pain in right hip (principal); I10 Essential (primary) hypertension; E78.49 Other hyperlipidemia; S70.01XD Contusion of right hip, subsequent encounter; Z96.643 Presence of artificial hip joint, bilateral; X58.XXXD Exposure to other specified factors, subsequent encounter
CPT/HCPCS: 36415; 85025; 85652; 86140

== ENCOUNTER 2023-04-20 09:23 | Inpatient (IN) | payer MEDICARE, OTHER ==
[2023-04-15 16:41] VITALS: BMI 26.6
[~2023-04-20 09:23] MED LIST changes: +Pre Op ABX Message 1 EACH MISC MISCELLANE ONE; -SIMETHICONE 40 MG/0.6 ML DROPS 2,000 MG/30 ML BOTTLE PO ONE
[2023-04-20] MEDS ORDERED: LACTATED RINGERS 1,000 ML IV ONE ×3 (10:08→15:14)
[2023-04-20] MEDS ORDERED: LIDOCAINE 1% (10MG/ML) FOR IV START INTRADERMA ONE (10:09)
[2023-04-20] MEDS ORDERED: ONDANSETRON 4 MG/2 ML VIAL ONE (10:10)
[2023-04-20] MEDS ORDERED: DEXAMETHASONE SOD PHOSPHATE 4 MG/ML 1 ML VIAL IVP ONE (10:13)
[2023-04-20] MEDS ORDERED: PROPOFOL 10 MG/ML 20 ML VIAL IV ONE (11:30)
[2023-04-20] MEDS ORDERED: LIDOCAINE 2% INJ 20 MG/ML (2 ML VIAL) ONE (11:30)
[2023-04-20] MEDS ORDERED: fentaNYL (PF) 50 MCG/ML 2 ML AMP ONE (11:30)
[2023-04-20] MEDS ORDERED: ceFAZolin 3,000 MG in SODIUM CHLORIDE 0.9% IRRIGATIO 3,000 ML IRRIGATION ONE (11:34)
[2023-04-20] MEDS ORDERED: SODIUM CHLORIDE 0.9% 100 ML with ceFAZolin 2,000 MG IV ONE ×2 (11:55)
[2023-04-20] MEDS ORDERED: TOBRAMYCIN SULFATE 1.2 GM VIAL MISCELLANE ONE (12:01)
[2023-04-20] MEDS ORDERED: VANCOMYCIN 1,000 MG VIAL MISCELLANE ONE (12:02)
--- NOTE | 2023-04-20 12:26 | P.OP ---
Date of Procedure: 04/20/23 Preoperative Diagnosis: Infection right hip Postoperative Diagnosis: Infection right hip Procedure(s) Performed: 1. Incision and drainage right hip 2. Placement of antibiotic beads Implants: Stimulan antibiotic beads 10 cc Anesthesia: ANTHONY Surgeon: Amarjit Odonnell [employer] Retailer Sales Consultant #1: Saima Rivera Estimated Blood Loss (ml): 20 Pathology: other (Cultures 2) Condition: stable Disposition: PACU Indications for Procedure: This is a 78-year-old female that has had a right total hip arthroplasty performed 2015. She was having no problems with her hip that sustained a fall onto her left side approximately 4-6 weeks ago. She began to experience redness on the lateral side of her right hip which was initially treated with antibiotics. The outpatient treatment failed and now presents for an I&D of her right hip. Operative Findings: The operative findings show a large amount of purulent material the superficial area of the right hip over the lateral incision. There was a tract that went down to the proximal femur most likely communicating with the right hip joint. Description of Procedure: Patient was seen and evaluated in the preoperative area, consent was reviewed and the operative site was marked with a skin marker. Patient was then brought to the operating room. Preoperative antibiotics were held until after cultures were obtained intraoperatively. A general anesthetic was administered by the anesthesia department. Patient was then placed in a lateral decubitus position. The bony prominences were well-padded. The hip was then prepped and draped in the usual sterile fashion. A universal timeout was then performed which confirmed the patient's name, surgical site, ALLERGIES, and procedure. A standard anterolateral approach the hip was performed through the prior incision site. There are suspicious raised areas of the skin that were excised.. Skin and subcutaneous tissues were sharply incised with an incision centered over the tip of the greater trochanter. The incision was carefully dissected down to the fascia. A large amount of purulence was encountered just superficial to the fascia. This was cultured 2. There is found to be sinus tract through the fascia which is explored as well. Any suspicious tissue was excised sharply with a knife and with a Rominger down to bone and fascia. There area was then irrigated with 3000 L of antibiotic solution as well as diluted Betadine soak. While the hip was being irrigated, stimulant antibiotic beads were prepared by mixing 1.2 g of tobramycin and 1 g of vancomycin. The beads were then placed into the wound both superficially and deep. Next the fascia was repaired with #1 Vicryl suture. The subcutaneous tissue was then repaired with 3-0 Vicryl. The subcuticular tissue was then repaired with 3-0 strata fix suture. A Prevena wound VAC was then placed over the incision A sterile dressing was then applied and the patient was transported to the recovery room in stable condition. [employer] Retailer Sales Consultant FABBY Alanis was required due to the complexity of surgery the need for skilled surgical appliance fitter. She assisted with positioning the patient, draping the patient, retraction during the surgery, and closure of the wound.
[2023-04-20] MEDS ORDERED: NALOXONE 0.4 MG/ML 1 ML VIAL IV PRN (12:44)
[2023-04-20] MEDS ORDERED: ONDANSETRON 4 MG/2 ML VIAL IVP PRN (12:44)
[2023-04-20] MEDS ORDERED: HYDROmorphone 0.5 MG/0.5 ML SYRINGE IVP PRN ×3 (12:44)
[2023-04-20] MEDS ORDERED: MAGNESIUM HYDROXIDE 2,400 MG/10 ML CUP PO PRN (12:44)
[2023-04-20] MEDS ORDERED: VANCOMYCIN IV PER PHARMACY 1 EACH MISC MISCELLANE PRN (12:47)
[2023-04-20] MEDS: HYDROcodone/APAP 7.5-325MG 1 EACH TAB PO PRN (15:57)
[2023-04-20 15:58] LABS: African American GFR (CKD) >90 (>60 ml/min/1.73 sqM); Non-African American GFR(CKD) 84 (>60 ml/min/1.73 sqM)
[2023-04-20] MEDS ORDERED: VANCOMYCIN 1,250 MG in SODIUM CHLORIDE 0.9% 250 ML IVPB SCH (18:00)
--- NOTE | 2023-04-20 20:07 | P.CONS ---
History of Present Illness - Reason for Consult Consult date: 04/20/23 - History of Present Illness Patient is a 78-year-old female with a past medical history significant for bilateral hip replacement right hip was replaced in 2016 and the patient seem to have done well until a fall about 2 months ago patient however mentions she did fell on her left side not on the right side however subsequently noticed to having a pain to the right hip area that seem to have progressed to get worse and the patient apparently did have a some swelling and blister formation on the right hip incision sites she has been complaining of pain to the right hip to be more of a dull aching to sharp 6-7 out of 10 radiation patient did have some trouble denies high-grade fever with this and the patient has been eval by her orthopedics patient was taken to the OR this afternoon patient did have I&D of the right hip and placement of the antibiotic beads patient was noticed to have a large amount of purulent material superficial area of the right hip over the lateral incision however there was a track that went down to the proximal fever communicating with the right hip joint or cultures has been obtained patient has been empirically started on vancomycin pharmacy to dose infectious he was consulted for further management of antibiotic therapy Past Medical History Past Medical History: Coronary Artery Disease (CAD), COPD, GERD/Reflux, Hyperlipidemia, Hypertension, Musculoskeletal Disorder, Osteoarthritis (OA), Thyroid Disorder Additional Past Medical History / Comment(s): Degenerative Disc Disease, Chronic neuropathy, Chronic pain syndrome, HX GI BLEED, uses cane for distance, anemia and low hgb History of Any Multi-Drug Resistant Organisms: None Reported Past Surgical History: Back Surgery, Hysterectomy, Joint Replacement Additional Past Surgical History / Comment(s): Bilateral Cataract surgery, Spinal Stimulator 2006, bilateral hip replacements. EGD, COLONOSCOPY Past Anesthesia/Blood Transfusion Reactions: No Reported Reaction, Motion Sickness Additional Past Anesthesia/Blood Transfusion Reaction / Comm: Hx blood transfusion-no reaction to it. Past Psychological History: Anxiety, Depression Additional Psychological History / Comment(s): . Smoking Status: Former smoker Past Alcohol Use History: None Reported Additional Past Alcohol Use History / Comment(s): Quit smoking Jul 2016, started smoking as teen, smoked 1 PPD. 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 - Past Family History Father Family Medical History: Myocardial Infarction (HI), Seizure Disorder Additional Family Medical History / Comment(s): . Mother History Unknown: Yes Family Medical History: No Reported History Additional Family Medical History / Comment(s): Hit by car/killed. Brother(s) Additional Family Medical History / Comment(s): Alcoholism, pancreatitis, thyroid disorder, lumbar disc disease prostate issues Sister(s) Additional Family Medical History / Comment(s): Depression Daughter(s) Family Medical History: No Reported History Medications and Allergies Home Medications Medication Instructions Recorded Confirmed Type Furosemide [Lasix] 20 mg PO DAILY 10/30/19 04/15/23 History Gabapentin [Neurontin] 400 mg PO TID 10/30/19 04/15/23 History Levothyroxine Sodium 25 mcg PO DAILY 10/30/19 04/15/23 History Metoprolol Tartrate 25 mg PO BID 10/30/19 04/15/23 History traMADol HCl [Ultram] 50 mg PO TID PRN 10/30/19 04/15/23 History Aspirin 81 mg PO DAILY 11/12/21 04/15/23 History DULoxetine HCL [Cymbalta] 30 mg PO DAILY 11/12/21 04/15/23 History Ferrous Sulfate [Feosol] 2 tab PO DAILY 11/12/21 04/15/23 History LORazepam [Lorazepam] 0.5 mg PO BID 09/09/22 04/15/23 History Acetaminophen [Tylenol Arthritis] 650 mg PO BID PRN 09/18/22 04/15/23 History Calcium 600 With D 1 dose PO DAILY 09/18/22 04/15/23 History Multivit-Min/Iron/Folic/Lutein 1 each PO DAILY 09/18/22 04/15/23 History [Centrum Silver Women Tablet] Potassium Chloride [Potassium 10 meq PO DAILY 09/18/22 04/15/23 History Chloride ER] Pravastatin Sodium [Pravachol] 40 mg PO HS 09/18/22 04/15/23 History diphenhydrAMINE [Benadryl] 50 mg PO HS 09/18/22 04/15/23 History Biotin [Popl-Sdlb-Xejpm] 10,000 mcg PO DAILY 04/15/23 04/20/23 History Famotidine 20 mg PO DAILY 04/15/23 04/15/23 History L.acidoph,Paracasei, B.lactis 1 each PO DAILY 04/15/23 04/15/23 History [Probiotic] Pantoprazole [Protonix] 40 mg PO DAILY 04/15/23 04/15/23 History Allergies Allergy/AdvReac Type Severity Reaction Status Date / Time No Known Allergies Allergy Verified 04/20/23 09:41 Physical Exam Vitals: Vital Signs Temp Pulse Pulse Resp BP BP BP 04/20/23 15:00 83 16 147/64 04/20/23 14:30 81 16 110/66 04/20/23 14:00 79 16 137/63 04/20/23 13:39 78 16 127/60 04/20/23 13:24 79 16 140/65 04/20/23 13:09 80 16 134/58 04/20/23 12:54 84 14 138/62 04/20/23 12:39 96.8 F L 83 16 162/59 04/20/23 09:54 97.4 F L 72 16 173/78 Pulse Ox 04/20/23 15:00 99 04/20/23 14:30 98 04/20/23 14:00 97 04/20/23 13:39 100 04/20/23 13:24 98 04/20/23 13:09 100 04/20/23 12:54 96 04/20/23 12:39 99 04/20/23 09:54 99 Intake and Output 04/20/23 04/20/23 04/20/23 06:59 14:59 22:59 Intake Total 1101 325 Output Total 20 Balance 1081 325 Intake: IV 1101 325 Output: Estimated Blood Loss 20 Other: Weight 70.307 kg Results CBC & Chem 7: 04/20/23 15:27 Assessment and Plan Plan: 1patient was in the hospital with right hip septic arthritis and this patient was noticed to have significant purulent drainage at the time of surgery and a tract that was communicating down to the prosthetic joint concerning for deep infection status post I&D and antibiotic bead placement likely from gram- positive skin kenny 2-we will obtain blood cultures and inflammatory markers 3-patient to continue the vancomycin pharmacy to dose we will add cefepime for g ronda-negative culture while waiting for the culture to finalize Family at the bedside multiple questions concerns answered We will follow on clinical condition and cultures to further adjust medication if needed Thank you for this consultation we will follow the patient along with you Time with Patient: Greater than 30
[2023-04-20] MEDS: CEFEPIME 2 GM in SODIUM CHLORIDE 0.9% 100 ML IVPB SCH (20:31)
[2023-04-20] MEDS: LORazepam 0.5 MG TAB PO PRN (20:32)
[2023-04-20] MEDS: MELATONIN 5 MG TABLET PO SCH (20:32)
[2023-04-20] MEDS: SENNOSIDES-DOCUSATE SODIUM 1 EACH TAB PO SCH (20:32)
[2023-04-21] MEDS: HYDROcodone/APAP 7.5-325MG 1 EACH TAB PO PRN ×4 (00:36→18:41)
[2023-04-21] MEDS: CEFEPIME 2 GM in SODIUM CHLORIDE 0.9% 100 ML IVPB SCH ×4 (06:10→22:40)
--- NOTE | 2023-04-21 07:47 | P.PN ---
Subjective Progress Note Date: 04/21/23 Principal diagnosis: Right hip infection. Status post I&D right hip. History of total right hip arthroplasty. This is a 78-year-old female that has had a right total hip arthroplasty performed 2015. She was having no problems with her hip that sustained a fall onto her left side approximately 4-6 weeks ago. She began to experience redness on the lateral side of her right hip which was initially treated with antibiotics. The outpatient treatment failed and now presents for an I&D of her right hip. 04/21/2023: The patient is postop day #1 status post I&D of the right hip. She has no new complaints or concerns today. Vital signs are stable. Microbiology is pending. Objective - Vital Signs Vital signs: Vital Signs Temp 97.6 F 04/21/23 07:14 Pulse 80 04/21/23 07:14 Resp 16 04/21/23 07:14 BP 126/75 04/21/23 07:14 Pulse Ox 95 04/21/23 07:14 FiO2 Intake & Output 04/20/23 04/21/23 04/21/23 18:59 06:59 18:59 Intake Total 1426 Output Total 20 Balance 1406 Weight 70.307 kg Intake: IV 1426 Output: Estimated Blood Loss 20 Other: # Voids 1 3 - Exam This is a 78-year-old female in no acute distress. She is alert and oriented 3. Exam of the right lower extremity reveals that the Prevena wound VAC is in place. She has full foot and ankle motion without difficulty or pain. Neurovascular status to the lower extremity is intact. - Labs CBC & Chem 7: 04/20/23 15:27 Assessment and Plan (1) Status post incision and drainage Current Visit: Yes Status: Acute Code(s): Z98.890 - OTHER SPECIFIED POSTPROCEDURAL STATES SNOMED Code(s): 768877779 (2) Infection of right prosthetic hip joint Current Visit: Yes Status: Acute Code(s): T84.51XA - INFECT/INFLM REACTION DUE TO INTERNAL RIGHT HIP PROSTH, INIT SNOMED Code(s): 573231289 (3) Status post right hip replacement Current Visit: No Status: Acute Code(s): Z96.641 - PRESENCE OF RIGHT ARTIFICIAL HIP JOINT SNOMED Code(s): 737733085 Plan: The clinical findings are discussed with the patient. We will continue to follow. She will work with physical therapy today. Continue antibiotics per infectious disease.
[2023-04-21 08:23] LABS: Basophils % (A) 0 %; Eosinophils % (A) 0 %; HCT 34.6 % (34.0-46.0); HGB 10.4 gm/dL (11.4-16.0); Hypochromasia Marked; Lymphocytes # (A) 1.1 k/uL (1.0-4.8); Lymphocytes % (A) 16 %; MCH 28.9 pg (25.0-35.0); MCV 96.4 fL (80.0-100.0); Mean Platelet Volume 6.8; Monocytes # (A) 0.2 k/uL (0-1.0); Monocytes % (A) 3 %; Neutrophils # (A) 5.5 k/uL (1.3-7.7); Neutrophils % (A) 79 %; Platelet Count 445 k/uL (150-450); RBC 3.59 m/uL (3.80-5.40); RDW 15.7 % (11.5-15.5); WBC 6.9 k/uL (3.8-10.6)
[2023-04-21 08:34] LABS: ALT 12 U/L (4-34); AST 20 U/L (14-36); African American GFR (CKD) >90 (>60 ml/min/1.73 sqM); Albumin 3.7 g/dL (3.5-5.0); Albumin/Globulin Ratio 1.2; Alkaline Phosphatase 56 U/L (38-126); Anion Gap 8 mmol/L; Blood Urea Nitrogen 9 mg/dL (7-17); Calcium 9.7 mg/dL (8.4-10.2); Carbon Dioxide 30 mmol/L (22-30); Chloride 105 mmol/L (98-107); Globulin 3.1 g/dL; Glucose 193 mg/dL (74-99); Non-African American GFR(CKD) 84 (>60 ml/min/1.73 sqM); Potassium 3.7 mmol/L (3.5-5.1); Sodium 143 mmol/L (137-145); Total Bilirubin 0.2 mg/dL (0.2-1.3); Total Protein 6.8 g/dL (6.3-8.2)
[2023-04-21 09:05] LABS: C Reactive Protein 1.7 mg/dL (<1.0)
[2023-04-21] MEDS: VANCOMYCIN 1,250 MG in SODIUM CHLORIDE 0.9% 250 ML IVPB SCH (09:52)
[2023-04-21 10:10] LABS: Erythrocyte Sedimentation Rate 80 mm/hr (0-20)
[2023-04-21] MEDS: LEVOTHYROXINE 25 MCG TAB PO SCH (11:50)
[2023-04-21] MEDS: POTASSIUM CHLORIDE ER 10 MEQ TAB.ER.PRT PO SCH (11:51)
[2023-04-21] MEDS: MULTIVITAMINS, THERA 1 EACH TAB PO SCH (11:51)
[2023-04-21] MEDS: METOPROLOL TARTRATE 25 MG TAB PO SCH ×2 (11:51→21:18)
[2023-04-21] MEDS: FAMOTIDINE 20 MG TAB PO SCH (11:51)
[2023-04-21] MEDS: PANTOPRAZOLE 40 MG TABLET PO SCH (11:51)
[2023-04-21] MEDS: FUROSEMIDE 20 MG TAB PO SCH (11:51)
[2023-04-21] MEDS: GABAPENTIN 400 MG CAP PO SCH ×3 (11:51→21:24)
[2023-04-21] MEDS: NON FORMULARY DRUG (Biotin [Hair-Skin-Nails] 10,000 MCG Tab.Chew) PO SCH (11:54)
[2023-04-21] MEDS: FERROUS SULFATE 325 MG TAB PO SCH (11:54)
[2023-04-21] MEDS: CALCIUM CARBONATE 500 MG CHEWABLE PO SCH (11:54)
[2023-04-21] MEDS: LACTOBACILLUS ACIDOPH & BULGAR 1 EACH PACKET PO SCH (11:55)
[2023-04-21] MEDS: DULoxetine HCL 30 MG CAPSULE.DR PO SCH (12:04)
[2023-04-21] MEDS: HEPARIN SODIUM,PORCINE/PF 5,000 UNIT/0.5 ML SYRINGE SQ SCH ×2 (12:54→21:19)
--- NOTE | 2023-04-21 13:22 | CONS ---
CONSULTATION REASON FOR CONSULTATION: Advice regarding COPD and other medical issues requested by surgery. HISTORY OF PRESENT ILLNESS: This is a 78-year-old woman with a past history of COPD, had previous hip surgeries on both sides. Now, the patient underwent incision, drainage as well as antibiotic bead placement for right hip infection. There is no history of any fever or rigors. No history of headache or loss of consciousness. Infectious disease is being consulted. PAST MEDICAL HISTORY: Reviewed include COPD, rest of the history and rest of the chart is also reviewed. HOME MEDICATIONS: Reviewed include famotidine, rest of the doses and rest of the medications reviewed. ALLERGIES: None. FAMILY HISTORY: History of myocardial infarction and seizure disorder. SOCIAL HISTORY: Previous history of smoking. REVIEW OF SYSTEMS: A 14-point review is negative except as mentioned earlier. PHYSICAL EXAMINATION: VITAL SIGNS: Pulse is 95, blood pressure 110/70, respirations 17. HEENT: Conjunctivae normal. NECK: No jugular venous distention. CARDIOVASCULAR: S1, S2 muffled. RESPIRATIONS: Clear to auscultation. ABDOMEN: Soft, nontender. LEGS: Status post right hip surgery. NERVOUS SYSTEM : No focal deficits. SKIN: No ulcer, rash, or bleeding. JOINTS: No active deforming arthropathy.. LABORATORY DATA: Reviewed. ASSESSMENT: 1. Right hip infection, status post incision, drainage, and antibiotic bead placement. 2. Chronic obstructive pulmonary disease. 3. Hypertension. 4. Hyperlipidemia. 5. Multiple medical issues. RECOMMENDATIONS AND DISCUSSION: This 78-year-old woman presented with multiple complex medical issues, we will monitor the patient closely. Recommended to resume the home medications. DVT prophylaxis, subcu heparin. Otherwise, repeat labs, antibiotics, cultures. Infectious disease evaluation. We will follow the patient closely with you and further recommendations to follow. Symptomatic treatment of the pain. MMODL / IJN: [id number] /
--- NOTE | 2023-04-21 14:20 | P.PN ---
Subjective Progress Note Date: 04/21/23 Principal diagnosis: Right hip septic arthritis Patient is a 78-year-old female with a past medical history significant for bilateral hip replacement right hip was replaced in 2016 and the patient seem to have done well until a fall about 2 months ago, patient has been diagnosed with right hip septic arthritis in his vision is status post I&D of the right hip with antibiotic bead placement On today's evaluation that is 04/21/2023, the patient denies having any fever or any chills, the patient pain to the right hip is currently controlled, patient denies having any chest pain shortness of breath or cough no nausea no vomiting no abdominal pain no diarrhea Objective - Vital Signs Vital signs: Vital Signs Temp 97.6 F 04/21/23 07:14 Pulse 80 04/21/23 07:14 Resp 16 04/21/23 07:14 BP 126/75 04/21/23 07:14 Pulse Ox 95 04/21/23 07:14 FiO2 Intake & Output 04/20/23 04/21/23 04/21/23 18:59 06:59 18:59 Intake Total 1426 200 Output Total 20 Balance 1406 200 Weight 70.307 kg Intake: IV 1426 Oral 200 Output: Estimated Blood Loss 20 Other: # Voids 1 3 - Exam GENERAL DESCRIPTION: An elderly female lying in bed in no distress RESPIRATORY SYSTEM: Unlabored breathing , decreased breath sounds at bases HEART: S1 S2 regular rate and rhythm , ABDOMEN: Soft , no tenderness EXTREMITIES: No edema feet - Labs CBC & Chem 7: 04/21/23 07:55 04/21/23 07:55 Labs: Abnormal Lab Results - Last 24 Hours (Table) 04/21/23 04/21/23 Range/Units 07:55 07:55 RBC 3.59 L (3.80-5.40) m/uL Hgb 10.4 L (11.4-16.0) gm/dL MCHC 30.0 L (31.0-37.0) g/dL RDW 15.7 H (11.5-15.5) % ESR 80 H (0-20) mm/hr Glucose 193 H (74-99) mg/dL C-Reactive Protein 1.7 H (<1.0) mg/dL Assessment and Plan (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 Current Visit: Yes Status: Acute Code(s): T84.51XA - INFECT/INFLM REACTION DUE TO INTERNAL RIGHT HIP PROSTH, INIT SNOMED Code(s): 989843741 Plan: 1patient was in the hospital with right hip septic arthritis and this patient was noticed to have significant purulent drainage at the time of surgery and a tract that was communicating down to the prosthetic joint concerning for deep infection status post I&D and antibiotic bead placement likely from gram- positive skin kenny 2- blood cultures are currently pending as well as local cultures patient did have a sed rate of 80 CRP 1.7 3-patient to continue the vancomycin pharmacy to dose along with cefepime while waiting for the culture to finalize Time with Patient: Less than 30
[2023-04-21] MEDS: LORazepam 0.5 MG TAB PO PRN (15:20)
[2023-04-21] MEDS: MELATONIN 5 MG TABLET PO SCH (21:18)
[2023-04-21] MEDS: SENNOSIDES-DOCUSATE SODIUM 1 EACH TAB PO SCH (21:18)
[2023-04-21] MEDS: diphenhydrAMINE 25 MG CAP PO SCH (21:18)
[2023-04-21] MEDS: PRAVASTATIN SODIUM 40 MG TAB PO SCH (21:19)
[2023-04-22] MEDS: VANCOMYCIN 1,250 MG in SODIUM CHLORIDE 0.9% 250 ML IVPB SCH ×2 (00:25→18:00)
[2023-04-22] MEDS: HYDROcodone/APAP 7.5-325MG 1 EACH TAB PO PRN ×3 (06:41→21:52)
[2023-04-22] MEDS: LEVOTHYROXINE 25 MCG TAB PO SCH (06:41)
[2023-04-22] MEDS: CEFEPIME 2 GM in SODIUM CHLORIDE 0.9% 100 ML IVPB SCH ×3 (06:42→20:55)
[2023-04-22] MEDS: METOPROLOL TARTRATE 25 MG TAB PO SCH ×2 (07:22→20:50)
[2023-04-22] MEDS: FERROUS SULFATE 325 MG TAB PO SCH (07:22)
[2023-04-22] MEDS: CALCIUM CARBONATE 500 MG CHEWABLE PO SCH (07:22)
[2023-04-22] MEDS: HEPARIN SODIUM,PORCINE/PF 5,000 UNIT/0.5 ML SYRINGE SQ SCH ×2 (07:22→20:49)
[2023-04-22] MEDS: POTASSIUM CHLORIDE ER 10 MEQ TAB.ER.PRT PO SCH (07:22)
[2023-04-22] MEDS: FUROSEMIDE 20 MG TAB PO SCH (07:22)
[2023-04-22] MEDS: GABAPENTIN 400 MG CAP PO SCH ×3 (07:22→20:49)
[2023-04-22] MEDS: ASPIRIN 81 MG PO SCH (07:22)
[2023-04-22] MEDS: MULTIVITAMINS, THERA 1 EACH TAB PO SCH (07:22)
[2023-04-22] MEDS: PANTOPRAZOLE 40 MG TABLET PO SCH (07:22)
[2023-04-22] MEDS: FAMOTIDINE 20 MG TAB PO SCH (07:22)
[2023-04-22 07:23] LABS: African American GFR (CKD) 87 (>60 ml/min/1.73 sqM); Non-African American GFR(CKD) 75 (>60 ml/min/1.73 sqM)
[2023-04-22] MEDS: DULoxetine HCL 30 MG CAPSULE.DR PO SCH (07:23)
[2023-04-22] MEDS: NON FORMULARY DRUG (Biotin [Hair-Skin-Nails] 10,000 MCG Tab.Chew) PO SCH (07:23)
[2023-04-22] MEDS: LACTOBACILLUS ACIDOPH & BULGAR 1 EACH PACKET PO SCH (10:32)
--- NOTE | 2023-04-22 11:34 | P.PN ---
Subjective Progress Note Date: 04/22/23 This is a 78-year-old female who is status post incision and drainage of the right hip with placement of antibiotic beads. This is postoperative day #2. Patient is seen and evaluated at bedside today and states that her pain is well- controlled. Patient states that she has been up and working with physical therapy. Patient denies any new complaints today. Objective - Vital Signs Vital signs: Vital Signs Temp 98.5 F 04/22/23 06:59 Pulse 72 04/22/23 06:59 Resp 18 04/22/23 06:59 BP 96/61 04/22/23 06:59 Pulse Ox 93 L 04/22/23 06:59 FiO2 Intake & Output 04/21/23 04/22/23 04/22/23 18:59 06:59 18:59 Intake Total 400 Balance 400 Intake: Oral 400 Other: # Voids 3 3 - Exam Vital signs are stable. Patient is in no acute distress and is alert and oriented 3. Calf is soft and nontender to palpation. Prevena wound vac is clean, dry, and intact. Patient has full foot and ankle motion without pain or difficulty. Sensation intact. Neurovascular status and circulatory status are intact. - Labs CBC & Chem 7: 04/21/23 07:55 04/22/23 06:35 Labs: Microbiology - Last 24 Hours (Table) 04/20/23 11:52 Gram Stain - Preliminary Hip - Right Assessment and Plan (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 Current Visit: Yes Status: Acute Code(s): T84.51XA - INFECT/INFLM REACTION DUE TO INTERNAL RIGHT HIP PROSTH, INIT SNOMED Code(s): 805527210 (2) Status post incision and drainage Current Visit: Yes Status: Acute Code(s): Z98.890 - OTHER SPECIFIED POSTPROCEDURAL STATES SNOMED Code(s): 976153732 Plan: Continue routine postop care and pain control. Leave Prevena wound vac in place for one week. Weightbearing as tolerated with a walker. Appreciate input from medicine and infectious disease. Cultures are pending. Antibiotics per infectious disease. Anticipate discharge home with home care once cultures are finalized and antibiotics are determined by infectious disease.
--- NOTE | 2023-04-22 12:50 | PN ---
PROGRESS NOTE DATE OF SERVICE: 04/22/2023 SUBJECTIVE: This is a 78-year-old woman, who was admitted with right hip infection. She is being closely monitored. The patient is on empiric antibiotics. Final cultures are pending. No chest pain. No palpitation. OBJECTIVE: VITAL SIGNS: Pulse is 72, blood pressure , respirations 18. CHEST: Clear to auscultation. ABDOMEN: Soft. EXTREMITIES: status post surgery. LABORATORY DATA: Reviewed. ASSESSMENT: 1. Right hip infection, status post incision, drainage, and antibiotic bead placement, on empiric antibiotics. 2. Chronic obstructive pulmonary disease. 3. Hypertension. 4. Hyperlipidemia. 5. Multiple medical issues. RECOMMENDATIONS: Recommend to continue current continue with DVT prophylaxis. Otherwise, closely follow with Infectious Disease. Continue with antibiotics, await final cultures. Further recommendations to follow. MMODL / IJN: [id number] /
[2023-04-22] MEDS ORDERED: LIDOCAINE 1% INJ 10MG/ML (5 ML VIAL-PF) SQ ONE (14:01)
--- NOTE | 2023-04-22 14:17 | IR ---
PICC LINE PLACEMENT: HISTORY: Infection requiring long-term antibiotic therapy PROCEDURE: Ultrasound and fluoroscopic guidance of PICC line placement. COMPLICATIONS: None ANESTHESIA: 1. 1% Lidocaine locally. FINDINGS/TECHNIQUE: The procedure was explained to the patient. The risks, complications, benefits and alternatives were discussed and any questions were answered. Informed consent was obtained. The patient was placed supine on the fluoroscopic table and prepped and draped in the usual sterile fash ion. Utilizing a 21 gauge needle and sonographic and fluoroscopic guidance, access in the left basi lic vein was achieved and there is placement of a 0.018 guidewire. The vein is patent. A 4-F sheath was placed over the guidewire. The guidewire and dilator were removed and a 4-F. PICC line was plac ed through the sheath with the tip at the level of the SVC. The sheath was removed, the catheter was flushed and sutured into position. The patient was stable throughout the procedure and remained sta ble upon discharge from the Department of Radiology. The vein puncture was patent under ultrasound. A seay scale image was obtained to document patency of the vein punctured. All elements of the maximal barrier technique were utilized. FLUOROSCOPY TIME: DAP [id number] m2 IMPRESSION: Successful PICC line placement under ultrasound and fluoroscopic guidance.
[2023-04-22] MEDS: MELATONIN 5 MG TABLET PO SCH (20:49)
[2023-04-22] MEDS: diphenhydrAMINE 25 MG CAP PO SCH (20:49)
[2023-04-22] MEDS: SENNOSIDES-DOCUSATE SODIUM 1 EACH TAB PO SCH (20:49)
[2023-04-22] MEDS: PRAVASTATIN SODIUM 40 MG TAB PO SCH (20:49)
--- NOTE | 2023-04-22 22:13 | P.PN ---
Subjective Progress Note Date: 04/22/23 Principal diagnosis: Right hip septic arthritis Patient is a 78-year-old female with a past medical history significant for bilateral hip replacement right hip was replaced in 2016 and the patient seem to have done well until a fall about 2 months ago, patient has been diagnosed with right hip septic arthritis in his vision is status post I&D of the right hip with antibiotic bead placement On today's evaluation that is 04/22/2023, the patient remains to be afebrile, the patient pain to the right hip is controlled with current medication, patient denies having any chest pain shortness of breath or cough no nausea no vomiting no abdominal pain no diarrhea Objective - Vital Signs Vital signs: Vital Signs Temp 98.5 F 04/22/23 06:59 Pulse 72 04/22/23 06:59 Resp 18 04/22/23 06:59 BP 96/61 04/22/23 06:59 Pulse Ox 93 L 04/22/23 06:59 FiO2 Intake & Output 04/21/23 04/22/23 04/22/23 18:59 06:59 18:59 Intake Total 400 Balance 400 Intake: Oral 400 Other: # Voids 3 3 - Exam GENERAL DESCRIPTION: An elderly female lying in bed in no distress RESPIRATORY SYSTEM: Unlabored breathing , decreased breath sounds at bases HEART: S1 S2 regular rate and rhythm , ABDOMEN: Soft , no tenderness EXTREMITIES: No edema feet - Labs CBC & Chem 7: 04/21/23 07:55 04/22/23 06:35 Labs: Abnormal Lab Results - Last 24 Hours (Table) 04/21/23 Range/Units 07:55 ESR 80 H (0-20) mm/hr Microbiology - Last 24 Hours (Table) 04/20/23 11:52 Gram Stain - Preliminary Hip - Right Assessment and Plan (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 Current Visit: Yes Status: Acute Code(s): T84.51XA - INFECT/INFLM REACTION DUE TO INTERNAL RIGHT HIP PROSTH, INIT SNOMED Code(s): 425729233 Plan: 1patient was in the hospital with right hip septic arthritis and this patient was noticed to have significant purulent drainage at the time of surgery and a tract that was communicating down to the prosthetic joint concerning for deep infection status post I&D and antibiotic bead placement likely from gram- positive skin kenny 2- blood cultures are currently pending however right hip cultures growing staph aureus with sensitivities pending patient did have a sed rate of 80 CRP 1.7 3-patient to continue the vancomycin pharmacy to dose along with cefepime while waiting for the culture to finalize, we will order a PICC line for outpatient IV antibiotics Time with Patient: Less than 30
[2023-04-23] MEDS: LEVOTHYROXINE 25 MCG TAB PO SCH (05:39)
[2023-04-23] MEDS ORDERED: VANCOMYCIN TROUGH DUE 1 EACH MISC MISCELLANE ONE (07:00)
[2023-04-23 08:34] LABS: Basophils % (A) 0 %; Eosinophils # (A) 0.2 k/uL (0-0.7); Eosinophils % (A) 3 %; HCT 33.6 % (34.0-46.0); HGB 10.4 gm/dL (11.4-16.0); Hypochromasia Slight; Lymphocytes # (A) 1.3 k/uL (1.0-4.8); Lymphocytes % (A) 20 %; MCH 28.3 pg (25.0-35.0); Mean Platelet Volume 7.6; Monocytes # (A) 0.5 k/uL (0-1.0); Monocytes % (A) 8 %; Neutrophils # (A) 4.4 k/uL (1.3-7.7); Neutrophils % (A) 68 %; Platelet Count 321 k/uL (150-450); RBC 3.68 m/uL (3.80-5.40); RDW 15.5 % (11.5-15.5); WBC 6.5 k/uL (3.8-10.6)
[2023-04-23 08:44] LABS: MCV 91.4 fL (80.0-100.0)
[2023-04-23] MEDS ORDERED: CEFEPIME 2 GM in SODIUM CHLORIDE 0.9% 100 ML IVPB SCH (09:00)
--- NOTE | 2023-04-23 09:31 | P.PN ---
Subjective Progress Note Date: 04/23/23 This is a 78-year-old female who is status post incision and drainage of the right hip with placement of antibiotic beads. This is postoperative day #3. Patient is seen and evaluated at bedside today and states that her pain is well- controlled. Patient denies any new complaints today. Objective - Vital Signs Vital signs: Vital Signs Temp 98.6 F 04/23/23 07:16 Pulse 84 04/23/23 07:16 Resp 17 04/23/23 07:16 BP 126/78 04/23/23 07:16 Pulse Ox 93 L 04/23/23 07:16 FiO2 Intake & Output 04/22/23 04/23/23 04/23/23 18:59 06:59 18:59 Other: # Voids 1 3 # Bowel Movements 1 - Exam Vital signs are stable. Patient is in no acute distress and is alert and oriented 3. Calf is soft and nontender to palpation. Prevena wound vac is clean, dry, and intact. Patient has full foot and ankle motion without pain or difficulty. Sensation intact. Neurovascular status and circulatory status are intact. - Labs CBC & Chem 7: 04/23/23 07:12 04/22/23 06:35 Labs: Abnormal Lab Results - Last 24 Hours (Table) 04/23/23 Range/Units 07:12 RBC 3.68 L (3.80-5.40) m/uL Hgb 10.4 L (11.4-16.0) gm/dL Hct 33.6 L (34.0-46.0) % Microbiology - Last 24 Hours (Table) 04/20/23 11:53 Gram Stain - Preliminary Hip - Right Wound Culture - Preliminary Presumptive Staph aureus 04/21/23 07:55 Blood Culture - Preliminary Blood 04/20/23 11:52 Gram Stain - Preliminary Hip - Right Wound Culture - Preliminary Presumptive Staph aureus Assessment and Plan (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 Current Visit: Yes Status: Acute Code(s): T84.51XA - INFECT/INFLM REACTION DUE TO INTERNAL RIGHT HIP PROSTH, INIT SNOMED Code(s): 677185239 (2) Status post incision and drainage Current Visit: Yes Status: Acute Code(s): Z98.890 - OTHER SPECIFIED POSTPROCEDURAL STATES SNOMED Code(s): 188133186 Plan: Continue routine postop care and pain control. Leave Prevena wound vac in place for one week. Weightbearing as tolerated with a walker. Appreciate input from internal medicine and infectious disease. Cultures are showing presumptive staph aureus. Antibiotics per infectious disease. Patient had a PICC line placed. Patient plans to discharge to [facility] for IV antibiotics once cultures are finalized and antibiotics are determined by infectious disease.
[2023-04-23] MEDS: FUROSEMIDE 20 MG TAB PO SCH (09:40)
[2023-04-23] MEDS: PANTOPRAZOLE 40 MG TABLET PO SCH (09:40)
[2023-04-23] MEDS: POTASSIUM CHLORIDE ER 10 MEQ TAB.ER.PRT PO SCH (09:40)
[2023-04-23] MEDS: ASPIRIN 81 MG PO SCH (09:40)
[2023-04-23] MEDS: CALCIUM CARBONATE 500 MG CHEWABLE PO SCH (09:40)
[2023-04-23] MEDS: FERROUS SULFATE 325 MG TAB PO SCH (09:40)
[2023-04-23] MEDS: LACTOBACILLUS ACIDOPH & BULGAR 1 EACH PACKET PO SCH (09:41)
[2023-04-23] MEDS: MULTIVITAMINS, THERA 1 EACH TAB PO SCH (09:41)
[2023-04-23] MEDS: DULoxetine HCL 30 MG CAPSULE.DR PO SCH (09:41)
[2023-04-23] MEDS: METOPROLOL TARTRATE 25 MG TAB PO SCH ×2 (09:42→21:31)
[2023-04-23] MEDS: NON FORMULARY DRUG (Biotin [Hair-Skin-Nails] 10,000 MCG Tab.Chew) PO SCH (09:42)
[2023-04-23] MEDS: FAMOTIDINE 20 MG TAB PO SCH (09:42)
[2023-04-23] MEDS: HEPARIN SODIUM,PORCINE/PF 5,000 UNIT/0.5 ML SYRINGE SQ SCH ×2 (09:43→21:32)
[2023-04-23] MEDS: GABAPENTIN 400 MG CAP PO SCH ×3 (09:47→21:32)
[2023-04-23] MEDS: VANCOMYCIN 1,250 MG in SODIUM CHLORIDE 0.9% 250 ML IVPB SCH ×2 (10:00→23:42)
[2023-04-23] MEDS: LORazepam 0.5 MG TAB PO PRN (10:00)
--- NOTE | 2023-04-23 16:03 | P.PN ---
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 and the patient seem to have done well until a fall about 2 months ago, patient has been diagnosed with right hip septic arthritis in his vision is status post I&D of the right hip with antibiotic bead placement On today's evaluation that is 04/23/2023, the patient denies having any fever or any chills, the patient pain to the right hip is controlled with current medication, patient denies chest pain shortness of breath or cough no nausea no vomiting no abdominal pain no diarrhea, feeling better Objective - Vital Signs Vital signs: Vital Signs Temp 98.6 F 04/23/23 07:16 Pulse 84 04/23/23 07:16 Resp 17 04/23/23 07:16 BP 126/78 04/23/23 07:16 Pulse Ox 93 L 04/23/23 07:16 FiO2 Intake & Output 04/22/23 04/23/23 04/23/23 18:59 06:59 18:59 Other: # Voids 1 3 # Bowel Movements 1 - Exam GENERAL DESCRIPTION: An elderly female lying in bed in no distress RESPIRATORY SYSTEM: Unlabored breathing , decreased breath sounds at bases HEART: S1 S2 regular rate and rhythm , ABDOMEN: Soft , no tenderness EXTREMITIES: No edema feet - Labs CBC & Chem 7: 04/23/23 07:12 04/22/23 06:35 Labs: Abnormal Lab Results - Last 24 Hours (Table) 04/23/23 Range/Units 07:12 RBC 3.68 L (3.80-5.40) m/uL Hgb 10.4 L (11.4-16.0) gm/dL Hct 33.6 L (34.0-46.0) % Microbiology - Last 24 Hours (Table) 04/20/23 11:53 Gram Stain - Preliminary Hip - Right Wound Culture - Preliminary Presumptive Staph aureus 04/21/23 07:55 Blood Culture - Preliminary Blood 04/20/23 11:52 Gram Stain - Preliminary Hip - Right Wound Culture - Preliminary Presumptive Staph aureus Assessment and Plan (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 Current Visit: Yes Status: Acute Code(s): T84.51XA - INFECT/INFLM REACTION DUE TO INTERNAL RIGHT HIP PROSTH, INIT SNOMED Code(s): 214744869 Plan: 1patient was in the hospital with right hip septic arthritis and this patient was noticed to have significant purulent drainage at the time of surgery and a tract that was communicating down to the prosthetic joint concerning for deep infection status post I&D and antibiotic bead placement likely from gram- positive skin kenny 2- blood cultures are currently pending however right hip cultures growing staph aureus with sensitivities pending patient did have a sed rate of 80 CRP 1.7 3-patient local cultures currently growing staph aureus with sensitivities pending patient to continue with vancomycin, cefepime has been discontinued discharge antibodies on the basis of culture Time with Patient: Less than 30
--- NOTE | 2023-04-23 16:55 | P.PN ---
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 and the patient seem to have done well until a fall about 2 months ago patient however mentions she did fell on her left side not on the right side however subsequently noticed to having a pain to the right hip area that seem to have progressed to get worse and the patient apparently did have a some swelling and blister formation on the right hip incision sites she has been complaining of pain to the right hip to be more of a dull aching to sharp 6-7 out of 10 radiation patient did have some trouble denies high-grade fever with this and the patient has been eval by her orthopedics patient was taken to the OR this afternoon patient did have I&D of the right hip and placement of the antibiotic beads patient was noticed to have a large amount of purulent material superficial area of the right hip over the lateral incision however there was a track that went down to the proximal fever communicating with the right hip joint or cultures has been obtained patient has been empirically started on vancomycin pharmacy to dose Objective - Vital Signs Vital signs: Vital Signs Temp 98.6 F 04/23/23 07:16 Pulse 84 04/23/23 07:16 Resp 17 04/23/23 07:16 BP 126/78 04/23/23 07:16 Pulse Ox 93 L 04/23/23 07:16 FiO2 Intake & Output 04/22/23 04/23/23 04/23/23 18:59 06:59 18:59 Other: # Voids 1 3 # Bowel Movements 1 - Exam PHYSICAL EXAMINATION: GENERAL: The patient is alert and oriented x3, not in any acute distress. Well developed, well nourished. HEENT: Pupils are round and equally reacting to light. EOMI. No scleral icterus. No conjunctival pallor. Normocephalic, atraumatic. No pharyngeal erythema. No thyromegaly. CARDIOVASCULAR: S1 and S2 present. No murmurs, rubs, or gallops. PULMONARY: Chest is clear to auscultation, no wheezing or crackles. ABDOMEN: Soft, nontender, nondistended, normoactive bowel sounds. No palpable organomegaly. MUSCULOSKELETAL: No joint swelling or deformity. EXTREMITIES: No cyanosis, clubbing, or pedal edema. NEUROLOGICAL: Gross neurological examination did not reveal any focal deficits. SKIN: No rashes. - Labs CBC & Chem 7: 04/23/23 07:12 04/22/23 06:35 Labs: Abnormal Lab Results - Last 24 Hours (Table) 04/23/23 Range/Units 07:12 RBC 3.68 L (3.80-5.40) m/uL Hgb 10.4 L (11.4-16.0) gm/dL Hct 33.6 L (34.0-46.0) % Microbiology - Last 24 Hours (Table) 04/20/23 11:53 Gram Stain - Preliminary Hip - Right Wound Culture - Preliminary Presumptive Staph aureus 04/21/23 07:55 Blood Culture - Preliminary Blood 04/20/23 11:52 Gram Stain - Preliminary Hip - Right Wound Culture - Preliminary Presumptive Staph aureus Assessment and Plan Assessment: 1. Septic arthritis; right hip - Patient was noted to have significant purulent drainage at time of surgery with a tract communicating down to the prostatic joint with concerns for deep infection; patient is status post incision and drainage and antibiotic bead placement - ID on board and recommending to continue IV antibiotic therapy in form of vancomycin and cefepime; monitor CBC, CRP and pro-calcitonin - Blood cultures and wound cultures are obtained with plans to adjust antibiotic therapy once results are available 2. COPD; not in exacerbation; continue with home inhaler therapy 3. Hypertension; metoprolol tartrate 25 mg twice a day 4. Hyperlipidemia; currently not on any statin therapy 5. Hypothyroidism; Synthroid 25 MCG daily DVT prophylaxis; SCDs CODE STATUS; full code
[2023-04-23] MEDS: HYDROcodone/APAP 7.5-325MG 1 EACH TAB PO PRN (17:17)
[2023-04-23] MEDS: diphenhydrAMINE 25 MG CAP PO SCH (21:31)
[2023-04-23] MEDS: PRAVASTATIN SODIUM 40 MG TAB PO SCH (21:31)
[2023-04-23] MEDS: SENNOSIDES-DOCUSATE SODIUM 1 EACH TAB PO SCH (21:32)
[2023-04-23] MEDS: MELATONIN 5 MG TABLET PO SCH (21:32)
[2023-04-24] MEDS: HYDROcodone/APAP 7.5-325MG 1 EACH TAB PO PRN ×3 (02:23→22:32)
[2023-04-24] MEDS: LEVOTHYROXINE 25 MCG TAB PO SCH (06:30)
[2023-04-24] MEDS: METOPROLOL TARTRATE 25 MG TAB PO SCH ×2 (08:03→22:32)
[2023-04-24] MEDS: FAMOTIDINE 20 MG TAB PO SCH (08:03)
[2023-04-24] MEDS: DULoxetine HCL 30 MG CAPSULE.DR PO SCH (08:03)
[2023-04-24] MEDS: MULTIVITAMINS, THERA 1 EACH TAB PO SCH (08:03)
[2023-04-24] MEDS: PANTOPRAZOLE 40 MG TABLET PO SCH (08:03)
[2023-04-24] MEDS: CALCIUM CARBONATE 500 MG CHEWABLE PO SCH ×2 (08:03→08:04)
[2023-04-24] MEDS: FERROUS SULFATE 325 MG TAB PO SCH (08:03)
[2023-04-24] MEDS: POTASSIUM CHLORIDE ER 10 MEQ TAB.ER.PRT PO SCH (08:03)
[2023-04-24] MEDS: FUROSEMIDE 20 MG TAB PO SCH (08:03)
[2023-04-24] MEDS: ASPIRIN 81 MG PO SCH (08:03)
[2023-04-24] MEDS: LACTOBACILLUS ACIDOPH & BULGAR 1 EACH PACKET PO SCH (08:04)
[2023-04-24] MEDS: NON FORMULARY DRUG (Biotin [Hair-Skin-Nails] 10,000 MCG Tab.Chew) PO SCH (08:04)
[2023-04-24] MEDS: HEPARIN SODIUM,PORCINE/PF 5,000 UNIT/0.5 ML SYRINGE SQ SCH ×2 (08:04→22:33)
[2023-04-24 08:07] LABS: African American GFR (CKD) 88 (>60 ml/min/1.73 sqM); Non-African American GFR(CKD) 76 (>60 ml/min/1.73 sqM)
[2023-04-24] MEDS: GABAPENTIN 400 MG CAP PO SCH ×3 (08:13→22:32)
--- NOTE | 2023-04-24 08:59 | P.PN ---
Subjective Progress Note Date: 04/24/23 This is a 78-year-old female who is status post incision and drainage of the right hip with placement of antibiotic beads. This is postoperative day #4. Patient is seen and evaluated at bedside today and states that her pain is well- controlled. Patient denies any new complaints today. Objective - Vital Signs Vital signs: Vital Signs Temp 98.9 F 04/24/23 07:38 Pulse 93 04/24/23 07:38 Resp 16 04/24/23 07:38 BP 121/73 04/24/23 07:38 Pulse Ox 95 04/24/23 07:38 FiO2 Intake & Output 04/23/23 04/24/23 04/24/23 18:59 06:59 18:59 Intake Total 200 Output Total 1000 Balance -800 Intake: Oral 200 Output: Urine 1000 Other: Voiding Method Toilet # Voids 2 3 - Exam Vital signs are stable. Patient is in no acute distress and is alert and oriented 3. Calf is soft and nontender to palpation. Prevena wound vac is clean, dry, and intact. Patient has full foot and ankle motion without pain or difficulty. Sensation intact. Neurovascular status and circulatory status are intact. - Labs CBC & Chem 7: 04/23/23 07:12 04/24/23 06:37 Assessment and Plan (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 Current Visit: Yes Status: Acute Code(s): T84.51XA - INFECT/INFLM REACTION DUE TO INTERNAL RIGHT HIP PROSTH, INIT SNOMED Code(s): 472193437 (2) Status post incision and drainage Current Visit: Yes Status: Acute Code(s): Z98.890 - OTHER SPECIFIED POSTPROCEDURAL STATES SNOMED Code(s): 139355915 Plan: Continue routine postop care and pain control. Leave Prevena wound vac in place for one week. Weightbearing as tolerated with a walker. Appreciate input from internal medicine and infectious disease. Cultures are showing presumptive staph aureus. Antibiotics per infectious disease. Patient had a PICC line placed. Patient plans to discharge to [facility] for IV antibiotics once cultures are finalized and antibiotics are determined by infectious disease.
--- NOTE | 2023-04-24 10:01 | P.PN ---
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 and the patient seem to have done well until a fall about 2 months ago, patient has been diagnosed with right hip septic arthritis in his vision is status post I&D of the right hip with antibiotic bead placement On today's evaluation that is 04/24/2023, the patient remains to be afebrile, the patient pain to the right hip is controlled with current medication, patient denies chest pain shortness of breath or cough no nausea no vomiting no abdominal pain no diarrhea, no new symptoms patient did get a PICC line Objective - Vital Signs Vital signs: Vital Signs Temp 98.2 F 04/24/23 01:41 Pulse 76 04/24/23 01:41 Resp 20 04/24/23 01:41 BP 123/69 04/24/23 01:41 Pulse Ox 92 L 04/24/23 01:41 FiO2 Intake & Output 04/23/23 04/24/23 04/24/23 18:59 06:59 18:59 Intake Total 200 Output Total 1000 Balance -800 Intake: Oral 200 Output: Urine 1000 Other: Voiding Method Toilet # Voids 2 3 - Exam GENERAL DESCRIPTION: An elderly female lying in bed in no distress RESPIRATORY SYSTEM: Unlabored breathing , decreased breath sounds at bases HEART: S1 S2 regular rate and rhythm , ABDOMEN: Soft , no tenderness EXTREMITIES: No edema feet - Labs CBC & Chem 7: 04/23/23 07:12 04/24/23 06:37 Labs: Abnormal Lab Results - Last 24 Hours (Table) 04/23/23 Range/Units 07:12 RBC 3.68 L (3.80-5.40) m/uL Hgb 10.4 L (11.4-16.0) gm/dL Hct 33.6 L (34.0-46.0) % Assessment and Plan (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 Current Visit: Yes Status: Acute Code(s): T84.51XA - INFECT/INFLM REACTION DUE TO INTERNAL RIGHT HIP PROSTH, INIT SNOMED Code(s): 928505322 Plan: 1patient was in the hospital with right hip septic arthritis and this patient was noticed to have significant purulent drainage at the time of surgery and a tract that was communicating down to the prosthetic joint concerning for deep infection status post I&D and antibiotic bead placement likely from gram- positive skin kenny 2- blood cultures are currently pending however right hip cultures growing staph aureus with sensitivities pending patient did have a sed rate of 80 CRP 1.7 3-patient local cultures currently growing staph aureus with sensitivities pending, RN has been advised to call the micro-lab to get the updated, patient to continue with vancomycin, discharge antibodies on the basis of culture Time with Patient: Less than 30
[2023-04-24] MEDS: LORazepam 0.5 MG TAB PO PRN (12:32)
[2023-04-24] MEDS: VANCOMYCIN 1,250 MG in SODIUM CHLORIDE 0.9% 250 ML IVPB SCH (15:38)
[2023-04-24] MEDS: MELATONIN 5 MG TABLET PO SCH (22:32)
[2023-04-24] MEDS: SENNOSIDES-DOCUSATE SODIUM 1 EACH TAB PO SCH (22:32)
[2023-04-24] MEDS: diphenhydrAMINE 25 MG CAP PO SCH (22:32)
[2023-04-24] MEDS: PRAVASTATIN SODIUM 40 MG TAB PO SCH (22:33)
[2023-04-25] MEDS: HYDROcodone/APAP 7.5-325MG 1 EACH TAB PO PRN ×2 (04:18→23:01)
[2023-04-25] MEDS: LEVOTHYROXINE 25 MCG TAB PO SCH (06:34)
[2023-04-25] MEDS: NON FORMULARY DRUG (Biotin [Hair-Skin-Nails] 10,000 MCG Tab.Chew) PO SCH (07:30)
[2023-04-25] MEDS: GABAPENTIN 400 MG CAP PO SCH ×3 (07:35→21:01)
[2023-04-25] MEDS: PANTOPRAZOLE 40 MG TABLET PO SCH (07:35)
[2023-04-25] MEDS: ASPIRIN 81 MG PO SCH (07:35)
[2023-04-25] MEDS: POTASSIUM CHLORIDE ER 10 MEQ TAB.ER.PRT PO SCH (07:35)
[2023-04-25] MEDS: FERROUS SULFATE 325 MG TAB PO SCH (07:35)
[2023-04-25] MEDS: HEPARIN SODIUM,PORCINE/PF 5,000 UNIT/0.5 ML SYRINGE SQ SCH ×2 (07:35→21:02)
[2023-04-25] MEDS: CALCIUM CARBONATE 500 MG CHEWABLE PO SCH (07:35)
[2023-04-25] MEDS: VANCOMYCIN 1,250 MG in SODIUM CHLORIDE 0.9% 250 ML IVPB SCH (07:36)
[2023-04-25] MEDS: MULTIVITAMINS, THERA 1 EACH TAB PO SCH (07:36)
[2023-04-25] MEDS: METOPROLOL TARTRATE 25 MG TAB PO SCH ×2 (07:36→21:02)
[2023-04-25] MEDS: FAMOTIDINE 20 MG TAB PO SCH (07:36)
[2023-04-25] MEDS: FUROSEMIDE 20 MG TAB PO SCH (07:36)
[2023-04-25] MEDS: LACTOBACILLUS ACIDOPH & BULGAR 1 EACH PACKET PO SCH (09:47)
[2023-04-25] MEDS: DULoxetine HCL 30 MG CAPSULE.DR PO SCH (09:47)
--- NOTE | 2023-04-25 09:51 | P.PN ---
Subjective Progress Note Date: 04/25/23 This is a 78-year-old female who is status post incision and drainage of the right hip with placement of antibiotic beads. This is postoperative day #5. Patient is seen and evaluated at bedside today and states that her pain is well- controlled. Patient denies any new complaints today. Objective - Vital Signs Vital signs: Vital Signs Temp 98.0 F 04/25/23 06:55 Pulse 75 04/25/23 06:55 Resp 15 04/25/23 06:55 BP 104/64 04/25/23 06:55 Pulse Ox 97 04/25/23 06:55 FiO2 Intake & Output 04/24/23 04/25/23 04/25/23 18:59 06:59 18:59 Intake Total 300 Balance 300 Intake: Oral 300 Other: # Voids 6 2 - Exam Vital signs are stable. Patient is in no acute distress and is alert and oriented 3. Calf is soft and nontender to palpation. Prevena wound vac is clean, dry, and intact. Patient has full foot and ankle motion without pain or difficulty. Sensation intact. Neurovascular status and circulatory status are intact. - Labs CBC & Chem 7: 04/23/23 07:12 04/24/23 06:37 Labs: Microbiology - Last 24 Hours (Table) 04/21/23 07:55 Blood Culture - Preliminary Blood 04/20/23 11:53 Anaerobic Culture - Preliminary Hip - Right 04/20/23 11:52 Anaerobic Culture - Preliminary Hip - Right 04/20/23 11:52 Gram Stain - Final Hip - Right Wound Culture - Final Staphylococcus aureus 04/20/23 11:53 Gram Stain - Final Hip - Right Wound Culture - Final Staphylococcus aureus Assessment and Plan (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 Current Visit: Yes Status: Acute Code(s): T84.51XA - INFECT/INFLM REACTION DUE TO INTERNAL RIGHT HIP PROSTH, INIT SNOMED Code(s): 731202035 (2) Status post incision and drainage Current Visit: Yes Status: Acute Code(s): Z98.890 - OTHER SPECIFIED PO STPROCEDURAL STATES SNOMED Code(s): 857900621 Plan: Continue routine postop care and pain control. Leave Prevena wound vac in place for one week. Weightbearing as tolerated with a walker. Appreciate input from internal medicine and infectious disease. Cultures are positive for staph aureus. Antibiotics per infectious disease. Patient had a PICC line placed. Patient plans to discharge to [facility] for IV antibiotics likely tomorrow.
[2023-04-25] MEDS: LORazepam 0.5 MG TAB PO PRN (09:55)
--- NOTE | 2023-04-25 15:34 | P.PN ---
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 and the patient seem to have done well until a fall about 2 months ago patient however mentions she did fell on her left side not on the right side however subsequently noticed to having a pain to the right hip area that seem to have progressed to get worse and the patient apparently did have a some swelling and blister formation on the right hip incision sites she has been complaining of pain to the right hip to be more of a dull aching to sharp 6-7 out of 10 radiation patient did have some trouble denies high-grade fever with this and the patient has been eval by her orthopedics patient was taken to the OR this afternoon patient did have I&D of the right hip and placement of the antibiotic beads patient was noticed to have a large amount of purulent material superficial area of the right hip over the lateral incision however there was a track that went down to the proximal fever communicating with the right hip joint or cultures has been obtained patient has been empirically started on vancomycin pharmacy to dose 04/24/2023 - the patient is seen and evaluated in room at bedside; remains to be afebrile, the patient pain to the right hip is controlled with current medication, patient denies chest pain shortness of breath or cough no nausea no vomiting no abdominal pain no diarrhea, no new symptoms; patient is status post PICC line placement Objective - Vital Signs Vital signs: Vital Signs Temp 98.3 F 04/24/23 13:58 Pulse 99 04/24/23 13:58 Resp 16 04/24/23 13:58 BP 117/92 04/24/23 13:58 Pulse Ox 97 04/24/23 13:58 FiO2 Intake & Output 04/23/23 04/24/23 04/24/23 18:59 06:59 18:59 Intake Total 200 300 Output Total 1000 Balance -800 300 Intake: Oral 200 300 Output: Urine 1000 Other: Voiding Method Toilet # Voids 2 3 - Exam PHYSICAL EXAMINATION: GENERAL: The patient is alert and oriented x3, not in any acute distress. Well developed, well nourished. HEENT: Pupils are round and equally reacting to light. EOMI. No scleral icterus. No conjunctival pallor. Normocephalic, atraumatic. No pharyngeal erythema. No thyromegaly. CARDIOVASCULAR: S1 and S2 present. No murmurs, rubs, or gallops. PULMONARY: Chest is clear to auscultation, no wheezing or crackles. ABDOMEN: Soft, nontender, nondistended, normoactive bowel sounds. No palpable organomegaly. MUSCULOSKELETAL: No joint swelling or deformity. EXTREMITIES: No cyanosis, clubbing, or pedal edema. NEUROLOGICAL: Gross neurological examination did not reveal any focal deficits. SKIN: No rashes. - Labs CBC & Chem 7: 04/23/23 07:12 04/24/23 06:37 Assessment and Plan Assessment: 1. Septic arthritis; right hip - Patient was noted to have significant purulent drainage at time of surgery with a tract communicating down to the prostatic joint with concerns for deep infection; patient is status post incision and drainage and antibiotic bead placement - ID on board and recommending to continue IV antibiotic therapy in form of vancomycin and cefepime; monitor CBC, CRP and pro-calcitonin - Blood cultures and wound cultures are obtained with plans to adjust antibiotic therapy once results are available 2. COPD; not in exacerbation; continue with home inhaler therapy 3. Hypertension; metoprolol tartrate 25 mg twice a day 4. Hyperlipidemia; currently not on any statin therapy 5. Hypothyroidism; Synthroid 25 MCG daily DVT prophylaxis; SCDs CODE STATUS; full code
--- NOTE | 2023-04-25 15:38 | P.PN ---
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 and the patient seem to have done well until a fall about 2 months ago patient however mentions she did fell on her left side not on the right side however subsequently noticed to having a pain to the right hip area that seem to have progressed to get worse and the patient apparently did have a some swelling and blister formation on the right hip incision sites she has been complaining of pain to the right hip to be more of a dull aching to sharp 6-7 out of 10 radiation patient did have some trouble denies high-grade fever with this and the patient has been eval by her orthopedics patient was taken to the OR this afternoon patient did have I&D of the right hip and placement of the antibiotic beads patient was noticed to have a large amount of purulent material superficial area of the right hip over the lateral incision however there was a track that went down to the proximal fever communicating with the right hip joint or cultures has been obtained patient has been empirically started on vancomycin pharmacy to dose 04/24/2023 - the patient is seen and evaluated in room at bedside; remains to be afebrile, the patient pain to the right hip is controlled with current medication, patient denies chest pain shortness of breath or cough no nausea no vomiting no abdominal pain no diarrhea, no new symptoms; patient is status post PICC line placement 04/25/2023 Patient is seen and evaluated status post incision and drainage of right hip replacement of antibiotic be; patient is POD 5; currently denying any specific complaints; reports. Pain control Vital signs are reviewed and temperature 90.8, pulse 75, respiration 15 and blood pressure of 104/64 with O2 saturation 97% Orthopedic surgery recommending weightbearing as tolerated with walker Blood cultures are positive for staph aureus with pending sensitivity; patient does have a PICC line placed ID on board and will determine discharge antibiotics Objective - Vital Signs Vital signs: Vital Signs Temp 98.6 F 04/25/23 14:05 Pulse 96 04/25/23 14:05 Resp 15 04/25/23 14:05 BP 117/69 04/25/23 14:05 Pulse Ox 93 L 04/25/23 14:05 FiO2 Intake & Output 04/24/23 04/25/23 04/25/23 18:59 06:59 18:59 Intake Total 300 Balance 300 Intake: Oral 300 Other: # Voids 6 2 - Exam PHYSICAL EXAMINATION: GENERAL: The patient is alert and oriented x3, not in any acute distress. Well developed, well nourished. HEENT: Pupils are round and equally reacting to light. EOMI. No scleral icterus. No conjunctival pallor. Normocephalic, atraumatic. No pharyngeal erythema. No thyromegaly. CARDIOVASCULAR: S1 and S2 present. No murmurs, rubs, or gallops. PULMONARY: Chest is clear to auscultation, no wheezing or crackles. ABDOMEN: Soft, nontender, nondistended, normoactive bowel sounds. No palpable organomegaly. MUSCULOSKELETAL: No joint swelling or deformity. EXTREMITIES: No cyanosis, clubbing, or pedal edema. NEUROLOGICAL: Gross neurological examination did not reveal any focal deficits. SKIN: No rashes. - Labs CBC & Chem 7: 04/23/23 07:12 04/24/23 06:37 Labs: Microbiology - Last 24 Hours (Table) 04/20/23 11:52 Anaerobic Culture - Final Hip - Right 04/20/23 11:53 Anaerobic Culture - Final Hip - Right 04/21/23 07:55 Blood Culture - Preliminary Blood 04/20/23 11:52 Gram Stain - Final Hip - Right Wound Culture - Final Staphylococcus aureus 04/20/23 11:53 Gram Stain - Final Hip - Right Wound Culture - Final Staphylococcus aureus Assessment and Plan Assessment: 1. Septic arthritis; right hip - Patient was noted to have significant purulent drainage at time of surgery with a tract communicating down to the prostatic joint with concerns for deep infection; patient is status post incision and drainage and antibiotic bead placement - ID on board and recommending to continue IV antibiotic therapy in form of vancomycin and cefepime; monitor CBC, CRP and pro-calcitonin - Blood cultures and wound cultures are obtained with plans to adjust antibiotic therapy once results are available 2. COPD; not in exacerbation; continue with home inhaler therapy 3. Hypertension; metoprolol tartrate 25 mg twice a day 4. Hyperlipidemia; currently not on any statin therapy 5. Hypothyroidism; Synthroid 25 MCG daily DVT prophylaxis; SCDs CODE STATUS; full code
[2023-04-25 15:46] LABS: African American GFR (CKD) 68 (>60 ml/min/1.73 sqM); Basophils % (A) 0 %; Eosinophils # (A) 0.3 k/uL (0-0.7); Eosinophils % (A) 4 %; HCT 32.4 % (34.0-46.0); HGB 9.6 gm/dL (11.4-16.0); Hypochromasia Marked; Lymphocytes # (A) 1.3 k/uL (1.0-4.8); Lymphocytes % (A) 18 %; MCH 28.2 pg (25.0-35.0); MCHC 29.8 g/dL (31.0-37.0); MCV 94.5 fL (80.0-100.0); Monocytes # (A) 0.5 k/uL (0-1.0); Monocytes % (A) 7 %; Neutrophils # (A) 4.8 k/uL (1.3-7.7); Neutrophils % (A) 68 %; Non-African American GFR(CKD) 59 (>60 ml/min/1.73 sqM); Platelet Count 382 k/uL (150-450); RBC 3.42 m/uL (3.80-5.40); RDW 15.1 % (11.5-15.5)
[2023-04-25] MEDS: PRAVASTATIN SODIUM 40 MG TAB PO SCH (21:01)
[2023-04-25] MEDS: MELATONIN 5 MG TABLET PO SCH (21:01)
[2023-04-25] MEDS: diphenhydrAMINE 25 MG CAP PO SCH (21:01)
[2023-04-25] MEDS: SENNOSIDES-DOCUSATE SODIUM 1 EACH TAB PO SCH (21:01)
[2023-04-26] MEDS: LEVOTHYROXINE 25 MCG TAB PO SCH (06:54)
--- NOTE | 2023-04-26 07:21 | P.PN ---
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 and the patient seem to have done well until a fall about 2 months ago, patient has been diagnosed with right hip septic arthritis in his vision is status post I&D of the right hip with antibiotic bead placement On today's evaluation that is 04/25/2023, the patient is afebrile, the patient pain to the right hip is controlled, patient denies chest pain shortness of breath or cough no nausea no vomiting no abdominal pain no diarrhea, feeling better Objective - Vital Signs Vital signs: Vital Signs Temp 98.0 F 04/25/23 06:55 Pulse 75 04/25/23 06:55 Resp 15 04/25/23 06:55 BP 104/64 04/25/23 06:55 Pulse Ox 97 04/25/23 06:55 FiO2 Intake & Output 04/24/23 04/25/23 04/25/23 18:59 06:59 18:59 Intake Total 300 Balance 300 Intake: Oral 300 Other: # Voids 6 2 - Exam GENERAL DESCRIPTION: An elderly female lying in bed in no distress RESPIRATORY SYSTEM: Unlabored breathing , decreased breath sounds at bases HEART: S1 S2 regular rate and rhythm , ABDOMEN: Soft , no tenderness EXTREMITIES: No edema feet - Labs CBC & Chem 7: 04/25/23 14:53 04/25/23 14:53 Labs: Microbiology - Last 24 Hours (Table) 04/20/23 11:52 Anaerobic Culture - Final Hip - Right 04/20/23 11:53 Anaerobic Culture - Final Hip - Right 04/21/23 07:55 Blood Culture - Preliminary Blood 04/20/23 11:52 Gram Stain - Final Hip - Right Wound Culture - Final Staphylococcus aureus 04/20/23 11:53 Gram Stain - Final Hip - Right Wound Culture - Final Staphylococcus aureus Assessment and Plan (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 Current Visit: Yes Status: Acute Code(s): T84.51XA - INFECT/INFLM REACTION DUE TO INTERNAL RIGHT HIP PROSTH, INIT SNOMED Code(s): 076507715 Plan: 1patient was in the hospital with right hip septic arthritis and this patient was noticed to have significant purulent drainage at the time of surgery and a tract that was communicating down to the prosthetic joint concerning for deep infection status post I&D and antibiotic bead placement likely from gram- positive skin kenny 2- blood cultures are currently pending however right hip cultures growing staph aureus with sensitivities pending patient did have a sed rate of 80 CRP 1.7 3-patient local cultures grew MSSA, antibiotics switched to Cefazolin , plan for 6 weeks of IV cefazolin followed by suppressive oral keflex , discussed with pt Time with Patient: Less than 30
[2023-04-26 07:46] VITALS: BP 107/53; PULSE 66; RESP 15; TEMP 98.2
[2023-04-26] MEDS: NON FORMULARY DRUG (Biotin [Hair-Skin-Nails] 10,000 MCG Tab.Chew) PO SCH (07:51)
[2023-04-26] MEDS: GABAPENTIN 400 MG CAP PO SCH (08:01)
[2023-04-26] MEDS: FERROUS SULFATE 325 MG TAB PO SCH (08:01)
[2023-04-26] MEDS: ASPIRIN 81 MG PO SCH (08:01)
[2023-04-26] MEDS: POTASSIUM CHLORIDE ER 10 MEQ TAB.ER.PRT PO SCH (08:01)
[2023-04-26] MEDS: PANTOPRAZOLE 40 MG TABLET PO SCH (08:01)
[2023-04-26] MEDS: MULTIVITAMINS, THERA 1 EACH TAB PO SCH (08:01)
[2023-04-26] MEDS: CALCIUM CARBONATE 500 MG CHEWABLE PO SCH (08:01)
[2023-04-26] MEDS: FAMOTIDINE 20 MG TAB PO SCH (08:01)
[2023-04-26] MEDS: FUROSEMIDE 20 MG TAB PO SCH (08:01)
[2023-04-26] MEDS: METOPROLOL TARTRATE 25 MG TAB PO SCH (08:01)
[2023-04-26] MEDS: LACTOBACILLUS ACIDOPH & BULGAR 1 EACH PACKET PO SCH (08:02)
[2023-04-26] MEDS: DULoxetine HCL 30 MG CAPSULE.DR PO SCH (08:02)
[2023-04-26] MEDS: HEPARIN SODIUM,PORCINE/PF 5,000 UNIT/0.5 ML SYRINGE SQ SCH ×2 (08:02→08:10)
--- NOTE | 2023-04-26 08:58 | P.DS ---
Providers Date of admission: 04/22/23 12:22 Expected date of discharge: 04/26/23 Attending physician: Amarjit Odonnell Consults: 04/20/23 12:44 Consult Physician Routine Consulting Provider: Johanne Escalante Consult Reason/Comments: medical management Do you want consulting provider notified?: Yes 04/20/23 12:47 Consult Physician Routine Consulting Provider: Mayank Noriega Consult Reason/Comments: right hip infection Do you want consulting provider notified?: Yes Primary care physician: Masoud Violeta - Discharge Diagnosis(es) (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 Current Visit: Yes Status: Acute (2) Status post incision and drainage Current Visit: Yes Status: Acute Hospital Course: This is a 78-year-old female with a history of right total hip replacement in 2016. Patient fell approximately 4-6 weeks ago on the left leg and subsequently developed redness over the right hip. Patient failed a course of outpatient antibiotic treatment. After discussion and consideration patient elects to proceed with incision and drainage of the right hip with placement of antibiotic beads. The patient is seen preoperatively by Dr. Odonnell. Patient is admitted to [facility] on 04/20/2023 for incision and drainage of the right hip with placement of antibiotic beads. The procedure is performed without complication or sequelae. The patient is doing well postoperatively. Labs and vital signs are stable on day of discharge. Cultures are positive for staph aureus and patient received a PICC line. Infectious disease has been managing antibiotic treatment. On day of discharge patient's hip incision is healing well. There is minimal erythema. There is mild drainage noted at this time. There is minimal soft tissue swelling to the hip and thigh. Patient has full foot and ankle motion without difficulty or pain. Calf is soft and nontender to palpation. Neurovascular status to the right lower extremity is intact. Patient is discharged to rehab in good condition. Please see med rec for accurate list of home medications. Plan - Discharge Summary Discharge Rx Participant: No New Discharge Prescriptions: New Sennosides [Senokot] 2 tab PO DAILY PRN #60 tablet PRN Reason: Constipation HYDROcodone/APAP 7.5-325MG [[place] 7.5-325] 1 - 2 tab PO Q6H PRN #32 tab PRN Reason: Pain No Action traMADol HCl [Ultram] 50 mg PO TID PRN PRN Reason: Pain Metoprolol Tartrate 25 mg PO BID Levothyroxine Sodium 25 mcg PO DAILY Gabapentin [Neurontin] 400 mg PO TID Furosemide [Lasix] 20 mg PO DAILY Ferrous Sulfate [Feosol] 2 tab PO DAILY Aspirin 81 mg PO DAILY DULoxetine HCL [Cymbalta] 30 mg PO DAILY Pravastatin Sodium [Pravachol] 40 mg PO HS Multivit-Min/Iron/Folic/Lutein [Centrum Silver Women Tablet] 1 each PO DAILY Pantoprazole [Protonix] 40 mg PO DAILY L.acidoph,Paracasei, B.lactis [Probiotic] 1 each PO DAILY LORazepam [Lorazepam] 0.5 mg PO BID Potassium Chloride [Potassium Chloride ER] 10 meq PO DAILY diphenhydrAMINE [Benadryl] 50 mg PO HS Calcium 600 With D 1 dose PO DAILY Acetaminophen [Tylenol Arthritis] 650 mg PO BID PRN PRN Reason: Pain Famotidine 20 mg PO DAILY Biotin [Blbz-Gpdu-Kuznn] 10,000 mcg PO DAILY Discharge Medication List Furosemide [Lasix] 20 mg PO DAILY 10/30/19 [History] Gabapentin [Neurontin] 400 mg PO TID 10/30/19 [History] Levothyroxine Sodium 25 mcg PO DAILY 10/30/19 [History] Metoprolol Tartrate 25 mg PO BID 10/30/19 [History] traMADol HCl [Ultram] 50 mg PO TID PRN 10/30/19 [History] Aspirin 81 mg PO DAILY 11/12/21 [History] DULoxetine HCL [Cymbalta] 30 mg PO DAILY 11/12/21 [History] Ferrous Sulfate [Feosol] 2 tab PO DAILY 11/12/21 [History] LORazepam [Lorazepam] 0.5 mg PO BID 09/09/22 [History] Acetaminophen [Tylenol Arthritis] 650 mg PO BID PRN 09/18/22 [History] Calcium 600 With D 1 dose PO DAILY 09/18/22 [History] Multivit-Min/Iron/Folic/Lutein [Centrum Silver Women Tablet] 1 each PO DAILY 09/18/22 [History] Potassium Chloride [Potassium Chloride ER] 10 meq PO DAILY 09/18/22 [History] Pravastatin Sodium [Pravachol] 40 mg PO HS 09/18/22 [History] diphenhydrAMINE [Benadryl] 50 mg PO HS 09/18/22 [History] Biotin [Aiwp-Iupf-Cvivm] 10,000 mcg PO DAILY 04/15/23 [History] Famotidine 20 mg PO DAILY 04/15/23 [History] L.acidoph,Paracasei, B.lactis [Probiotic] 1 each PO DAILY 04/15/23 [History] Pantoprazole [Protonix] 40 mg PO DAILY 04/15/23 [History] HYDROcodone/APAP 7.5-325MG [[place] 7.5-325] 1 - 2 tab PO Q6H PRN #32 tab 04/22/23 [Rx] Sennosides [Senokot] 2 tab PO DAILY PRN #60 tablet 04/22/23 [Rx] Follow up Appointment(s)/Referral(s): [facility] - As Needed ([facility] will call you to schedule your in home nursing visits to begin outpatient IV antibiotic teaching. Your first visit will be on: ) Amarjit Odonnell DO [Doctor of Osteopathic Medicine] - 05/05/23 1:30 pm Activity/Diet/Wound Care/Special Instructions: Weightbearing as tolerated. Leave Optifoam dressing in place for one week. If dressing becomes saturated please remove and change dressing twice daily or as needed to keep incision clean and dry. May shower with Optifoam dressing intact. If optifoam is removed the patient may shower with incision uncovered once there is no drainage. Please call [facility] with any questions or concerns, . Discharge Disposition: TRANSFER TO SNF/ECF
[2023-04-26] MEDS ORDERED: VANCOMYCIN TROUGH DUE 1 EACH MISC MISCELLANE ONE (15:00)
--- NOTE | 2023-04-26 20:51 | P.PN ---
Subjective Progress Note Date: 04/26/23 78-year-old female with a past medical history significant for bilateral hip replacement right hip was replaced in 2016 and the patient seem to have done well until a fall about 2 months ago patient however mentions she did fell on her left side not on the right side however subsequently noticed to having a pain to the right hip area that seem to have progressed to get worse and the patient apparently did have a some swelling and blister formation on the right hip incision sites she has been complaining of pain to the right hip to be more of a dull aching to sharp 6-7 out of 10 radiation patient did have some trouble denies high-grade fever with this and the patient has been eval by her orthopedics patient was taken to the OR this afternoon patient did have I&D of the right hip and placement of the antibiotic beads patient was noticed to have a large amount of purulent material superficial area of the right hip over the lateral incision however there was a track that went down to the proximal fever communicating with the right hip joint or cultures has been obtained patient has been empirically started on vancomycin pharmacy to dose 04/24/2023 - the patient is seen and evaluated in room at bedside; remains to be afebrile, the patient pain to the right hip is controlled with current medication, patient denies chest pain shortness of breath or cough no nausea no vomiting no abdominal pain no diarrhea, no new symptoms; patient is status post PICC line placement 04/25/2023 Patient is seen and evaluated status post incision and drainage of right hip replacement of antibiotic be; patient is POD 5; currently denying any specific complaints; reports. Pain control Vital signs are reviewed and temperature 90.8, pulse 75, respiration 15 and blood pressure of 104/64 with O2 saturation 97% Orthopedic surgery recommending weightbearing as tolerated with walker Blood cultures are positive for staph aureus with pending sensitivity; patient does have a PICC line placed ID on board and will determine discharge antibiotics 04/26/2023 Patient seen and evaluated in follow-up this morning and has received a PICC line maintained on IV antibiotics in the form of cefazolin with orthopedics and infectious disease following. Patient has received insurance authorization will be going to [facility] for continued antibiotic therapy along with physical therapy. Patient is currently afebrile denies chest pain or shortness of breath with no reported nausea or vomiting noted. Patient is medically stable for discharge to ECF today. Home medications reviewed and resumed as appropriate. Patient instructed to follow-up with primary care provider in the outpatient setting. Patient follows with Dr.Nick Mcdaniel.. Review of systems: Constitutional: No reports of fatigue, fever, or chills Cardiovascular: No reports of chest pain or palpitations Respiratory: No reports of shortness of breath or cough GI: No reports of nausea, vomiting, or diarrhea : No reports of dysuria or retention Neurovascular: reports of generalized weakness, reports some right hip discomfort All medications have been reviewed PHYSICAL EXAMINATION: GENERAL: The patient is alert and oriented x3, not in any acute distress. Well developed, well nourished. HEENT: Pupils are round and equally reacting to light. EOMI. No scleral icterus. No conjunctival pallor. Normocephalic, atraumatic. No pharyngeal erythema. No thyromegaly. CARDIOVASCULAR: S1 and S2 present. No murmurs, rubs, or gallops. PULMONARY: Chest is clear to auscultation, no wheezing or crackles. ABDOMEN: Soft, nontender, nondistended, normoactive bowel sounds. No palpable organomegaly. MUSCULOSKELETAL: No joint swelling or deformity. EXTREMITIES: No cyanosis, clubbing, or pedal edema. NEUROLOGICAL: Gross neurological examination did not reveal any focal deficits. A few slightly week SKIN: No rashes. Assessment: -Septic arthritis; right hip, Status post incision and drainage and antibiotic be placement -History of COPD; not in exacerbation -Hypertension history -Hyperlipidemia -Hypothyroidism -DVT prophylaxis -GI prophylaxis -Full code Plan: Recommend continue current medications and management per infectious disease Cultures finalized showing staph aureus and patient is continued on cefazolin and will continue and has received a PICC line Patient with overall weakness and inability to manage antibiotics going to ECF and has been accepted at [facility]. Insurance authorization has been obtained Home medications reviewed and resumed as appropriate and encourage the patient to follow-up with primary care provider on discharge Patient is medically stable for discharge to ECF today Thank you kindly for this consultation and we will continue to follow during hospitalization The impression and plan of care has been dictated by Amisha Farley, Nurse Practitioner as directed. Dr. Amie MD I have performed a history and examination and MDM of this patient, discussed the same with the dictator, and agree with the dictator's assessment and plan as written ,documented as a scribe. Based on total visit time, I have performed more than 50% of the visit. Objective - Vital Signs Vital signs: Vital Signs Temp 98.2 F 04/26/23 06:43 Pulse 66 04/26/23 06:43 Resp 15 04/26/23 06:43 BP 107/53 04/26/23 06:43 Pulse Ox 91 L 04/26/23 06:43 FiO2 Intake & Output 04/25/23 04/26/23 04/26/23 18:59 06:59 18:59 Other: Voiding Method Toilet # Voids 2 2 - Labs CBC & Chem 7: 04/25/23 14:53 04/25/23 14:53 Labs: Abnormal Lab Results - Last 24 Hours (Table) 04/25/23 Range/Units 14:53 RBC 3.42 L (3.80-5.40) m/uL Hgb 9.6 L (11.4-16.0) gm/dL Hct 32.4 L (34.0-46.0) % MCHC 29.8 L (31.0-37.0) g/dL Microbiology - Last 24 Hours (Table) 04/20/23 11:52 Anaerobic Culture - Final Hip - Right 04/20/23 11:53 Anaerobic Culture - Final Hip - Right
== END 2023-04-26 14:26 | DRG 481 ==
LOC: OR 09:23 → 4SSUR 12:39 → OR 04-22 08:27 → 4SSUR 04-22 08:40 → OBSVTOIN 04-22 12:22
PROVIDERS: ADMIT Orthopaedic Surgery; ATTEND Orthopaedic Surgery
PROC: 2W1NX6Z Compression of Right Upper Leg using Pressure Dressing (ICD-10-PCS; 2023-04-22)
PROC: 3E0U029 Introduction of Other Anti-infective into Joints, Open Approach (ICD-10-PCS; 2023-04-22)
PROC: 3E1U38X Irrigation of Joints using Irrigating Substance, Percutaneous Approach, Diagnostic (ICD-10-PCS; 2023-04-22)
PROC: 02HV33Z Insertion of Infusion Device into Superior Vena Cava, Percutaneous Approach (ICD-10-PCS; 2023-04-22)
PROC: B548ZZA Ultrasonography of Superior Vena Cava, Guidance (ICD-10-PCS; 2023-04-22)
PROC: B5181ZA Fluoroscopy of Superior Vena Cava using Low Osmolar Contrast, Guidance (ICD-10-PCS; 2023-04-22)
PROC: 0S990ZZ Drainage of Right Hip Joint, Open Approach (ICD-10-PCS; principal; 2023-04-22 10:30)
DX: T84.51XA Infection and inflammatory reaction due to internal right hip prosthesis, initial encounter (principal); M00.051 Staphylococcal arthritis, right hip; J44.9 Chronic obstructive pulmonary disease, unspecified; I10 Essential (primary) hypertension; E03.9 Hypothyroidism, unspecified; E78.5 Hyperlipidemia, unspecified; G89.4 Chronic pain syndrome; D64.9 Anemia, unspecified; I25.10 Atherosclerotic heart disease of native coronary artery without angina pectoris; M19.90 Unspecified osteoarthritis, unspecified site; B95.61 Methicillin susceptible Staphylococcus aureus infection as the cause of diseases classified elsewhere; G40.909 Epilepsy, unspecified, not intractable, without status epilepticus; Z79.890 Hormone replacement therapy; Z87.19 Personal history of other diseases of the digestive system; K21.9 Gastro-esophageal reflux disease without esophagitis; Z79.2 Long term (current) use of antibiotics; Z79.82 Long term (current) use of aspirin; Z79.899 Other long term (current) drug therapy; Y83.1 Surgical operation with implant of artificial internal device as the cause of abnormal reaction of the patient, or of later complication, without mention of misadventure at the time of the procedure; Z96.642 Presence of left artificial hip joint; Z87.891 Personal history of nicotine dependence; Z90.710 Acquired absence of both cervix and uterus; Z98.42 Cataract extraction status, left eye; Z98.41 Cataract extraction status, right eye; Z82.49 Family history of ischemic heart disease and other diseases of the circulatory system
CPT/HCPCS: 36573; 80053; 80202; 82565; 85025; 85652; 86140; 87040; 87070; 87075; 87077; 87186; 87205

== ENCOUNTER 2023-06-07 07:39 | Day surgery (SDC) | payer MEDICARE, OTHER ==
[2023-06-03 10:34] VITALS: BMI 26.1
[2023-06-07] MEDS ORDERED: LACTATED RINGERS 1,000 ML IV ONE (08:22)
[2023-06-07] MEDS ORDERED: ONDANSETRON 4 MG/2 ML VIAL ONE (08:23)
[2023-06-07] MEDS ORDERED: ONDANSETRON 4 MG/2 ML VIAL IVP ONE (08:24)
[2023-06-07] MEDS ORDERED: DEXAMETHASONE SOD PHOSPHATE 4 MG/ML 1 ML VIAL IVP ONE (08:24)
[2023-06-07] MEDS ORDERED: HYDROmorphone 0.5 MG/0.5 ML SYRINGE IVP PRN ×2 (09:06)
[2023-06-07] MEDS ORDERED: NALOXONE 0.4 MG/ML 1 ML VIAL IV PRN (09:06)
[2023-06-07] MEDS ORDERED: ONDANSETRON 4 MG/2 ML VIAL IVP PRN (09:06)
[2023-06-07] MEDS ORDERED: MAGNESIUM HYDROXIDE 2,400 MG/30 ML CUP PO PRN (09:06)
[2023-06-07] MEDS ORDERED: HYDROcodone/APAP 5-325MG 1 EACH TAB PO PRN (09:06)
[2023-06-07] MEDS ORDERED: LIDOCAINE 2% INJ 20 MG/ML (2 ML VIAL) ONE (09:18)
[2023-06-07] MEDS ORDERED: PROPOFOL 10 MG/ML 20 ML VIAL IV ONE (09:18)
[2023-06-07] MEDS ORDERED: MIDAZOLAM 2 MG/2 ML VIAL ONE (09:18)
[2023-06-07] MEDS ORDERED: PHENYLEPHRINE 10 MG/ML VIAL ONE (09:18)
[2023-06-07] MEDS ORDERED: fentaNYL (PF) 50 MCG/ML 2 ML AMP ONE (09:18)
[2023-06-07] MEDS ORDERED: ceFAZolin 1,000 MG in SODIUM CHLORIDE 0.9% 1,000 ML IRRIGATION ONE (09:34)
--- NOTE | 2023-06-07 09:53 | P.OP ---
Date of Procedure: 06/07/23 Preoperative Diagnosis: Infection right hip Postoperative Diagnosis: Infection right hip Procedure(s) Performed: Incision and drainage right hip Anesthesia: ANTHONY Surgeon: Amarjit Odonnell Miller Apprentice #1: Saima Rivera Estimated Blood Loss (ml): 10 Pathology: none sent Condition: stable Disposition: PACU Indications for Procedure: This is a 78-year-old female that had a right total hip arthroplasty in August 2016. She presented in April with an area of redness and pain. She had an incision and drainage on 04/20/23. She is done well but has recently developed a small blister over the site. After discussing the surgical nonsurgical treatment options with her at length, I recommended an incision and drainage of the area. She does not wish to proceed with a stage I revision with removal of components. We will attempt another incision and drainage and suppressive antibiotics. Operative Findings: The operative findings show a small blister on the lateral aspect of her thigh. There was no purulent material that was encountered. It did not go deep to the fascia. If infectious disease agrees, I would recommend to discontinue the IV antibiotics and place her on suppressive oral antibiotics. Description of Procedure: Patient was seen and evaluated in the preoperative area, consent was reviewed, and the surgical site was marked with a skin marker. Patient was then brought to the operating room and given prophylactic antibiotics intravenously. A spinal anesthetic was administered by the anesthesia department. The patient was then placed on the operative table and placed in the lateral decubitus position with the bony prominences well-padded. The hip area was then prepped and draped in usual sterile fashion. A universal timeout was then performed, which confirmed the patient's name, surgical site, ALLERGIES, and procedure being performed. Next the incision site was located on the lateral side of the hip centered over the small 1 x 1 cm blister. The skin was incised and the blister was excised. There is no purulence encountered. There area was debrided of any suspicious tissue sharply with a knife down to the fascia. Did not appear to go deep to the fascia. There was then irrigated with antibiotic solution with pulsatile lavage. The subcutaneous tissue was closed with 3-0 Vicryl. The subcuticular tissue was closed with 3-0 strata fix suture. A Prevena plus wound VAC was placed. The patient was then transferred to the recovery room in stable condition. The Asst.FABBY Senior was required due to the complexity of surgery, and the need for skilled surgical physician assistant for positioning, draping, exposure, retraction, and closure of the wound.and closure of the wound.
[2023-06-07] MEDS: HYDROmorphone 0.5 MG/0.5 ML SYRINGE IVP PRN ×2 (10:22→15:21)
[2023-06-07] MEDS: HYDROcodone/APAP 5-325MG 1 EACH TAB PO PRN ×2 (11:26→20:46)
[2023-06-07] MEDS: SODIUM CHLORIDE 0.9% 1,000 ML IV SCH ×2 (11:29→23:33)
[2023-06-07] MEDS ORDERED: ALBUTEROL NEBULIZED 2.5 MG/3 ML INHALATION PRN (14:58)
--- NOTE | 2023-06-07 14:58 | P.CONS ---
History of Present Illness - Reason for Consult Consult date: 06/07/23 HTN Requesting physician: Amarjit Odonnell - Chief Complaint RIght hip lesion - History of Present Illness Patient is a 78-year-old female with coronary artery disease, COPD, h ypertension, and dyslipidemia who presented for I and D of an infected right hip. She tolerated the procedure well without any immediate postoperative complications. Patient was here in April 2023 where she underwent I&D of the right hip for septic arthritis with placement of antibiotic beads. At that time she was recovering well and she was discharged to alf facility with plan for 6 weeks of IV cefazolin followed by oral Keflex. Patient seen and examined at bedside. She is having some burning over the right hip area but has noted currently. She denies a chest, shortness breath, nausea, vomiting, diarrhea. She states that she typically walks with a walker when she is outside of her home but uses furniture when she is in her home. Her niece is her pressurization mechanic and lives with her. Patient is a poor historian, no family at bedside, all information gathered from chart review. Vital signs reviewed General: nontoxic, no distress, appears at stated age Derm: warm, dry Eyes: EOMI, no lid lag, anicteric sclera, pupils equal round reactive to light ENT: Nose and ears atraumatic, no thrush, no pharyngeal erythema Cardiovascular: S1S2 reg with systolic ejection murmur, positive posterior tibial pulse bilateral, no edema, capillary refill less than 2 seconds Lungs: Decreased bs bilateral, no rhonchi, no rales, no wheeze, no accessory muscle use Abdominal: soft, nontender to palpation, no guarding, no appreciable organomegaly, normal bowel sounds Ext: no gross muscle atrophy, no contractures Neuro: CN II-XII grossly intact, No focal neuro defecit Psych: Alert, oriented, appropriate affect Assessment/Plan: 78-year-old female status post I&D right hip, recent MSSA septic arthritis - D/W DR. Noriega and PICC line was removed by nursing, plan is for discharge home on oral keflex COPD without exacerbation -Patient does not take inhalers at baseline -albuterol every 6 hours as needed Hypertension Dyslipidemia -Resume home metoprolol 25 mg twice daily, Lasix 20 mg daily, Pravachol 40 mg at night Chronic: GERD-Protonix 20 mg daily Hypothyroidism-Synthroid 25 g daily Imaging: None New Data Review: Preoperative blood work reviewed. Creatinine 0.6, hemoglobin 11.6 Thank you for allowing us to participate in the care of this pleasant patient. Do not hesitate to contact us with questions. Someone can be reached from the [facility] hospitalist group all hours of the day at [phone] or via [employer] This dictation was prepared using [employer] voice recognition software. Though every attempt is made to correct errors during dictation some may still exist. Past Medical History Past Medical History: Coronary Artery Disease (CAD), COPD, GERD/Reflux, Hyperlipidemia, Hypertension, Musculoskeletal Disorder, Osteoarthritis (OA), Thyroid Disorder Additional Past Medical History / Comment(s): Degenerative Disc Disease, Chronic neuropathy, Chronic pain syndrome, HX GI BLEED, uses cane for distance, anemia, Septic arthritis Right hip History of Any Multi-Drug Resistant Organisms: None Reported Past Surgical History: Back Surgery, Hysterectomy, Joint Replacement Additional Past Surgical History / Comment(s): Bilateral Cataract surgery, Spinal Stimulator 2006, bilateral hip replacements. EGD, COLONOSCOPY Past Anesthesia/Blood Transfusion Reactions: No Reported Reaction, Motion Sickness Additional Past Anesthesia/Blood Transfusion Reaction / Comm: Hx blood transfusion-no reaction to it. Smoking Status: Former smoker - Past Family History Father Family Medical History: Myocardial Infarction ([place]), Seizure Disorder Additional Family Medical History / Comment(s): . Mother History Unknown: Yes Family Medical History: No Reported History Additional Family Medical History / Comment(s): Hit by car/killed. Brother(s) Additional Family Medical History / Comment(s): Alcoholism, pancreatitis, thyroid disorder, lumbar disc disease prostate issues Sister(s) Additional Family Medical History / Comment(s): Depression Daughter(s) Family Medical History: No Reported History Medications and Allergies Home Medications Medication Instructions Recorded Confirmed Type Furosemide [Lasix] 20 mg PO QAM 10/30/19 06/07/23 History Levothyroxine Sodium 25 mcg PO QAM 10/30/19 06/07/23 History Metoprolol Tartrate 25 mg PO BID 10/30/19 06/07/23 History Aspirin 81 mg PO DAILY 11/12/21 06/07/23 History DULoxetine HCL [Cymbalta] 30 mg PO QAM 11/12/21 06/07/23 History Ferrous Sulfate [Iron (65 MG 2 tab PO DAILY 11/12/21 06/07/23 History Elemental)] Multivit-Min/Iron/Folic/Lutein 1 each PO DAILY 09/18/22 06/07/23 History [Centrum Silver Women Tablet] Potassium Chloride [Potassium 20 meq PO BID 09/18/22 06/07/23 History Chloride ER] Pravastatin Sodium [Pravachol] 40 mg PO HS 09/18/22 06/07/23 History Biotin [Ogwj-Kwoc-Bjpqx] 10,000 mcg PO DAILY 04/15/23 06/07/23 History Gabapentin [Neurontin] 400 mg PO TID #6 cap 04/26/23 06/07/23 Rx ceFAZolin [Kefzol] 2 gm IVP Q8HR 42 Days ml 04/26/23 06/07/23 Rx Famotidine 20 mg PO QAM 06/03/23 06/07/23 History HYDROcodone/APAP 7.5-325MG [[place] 1 tab PO Q6H PRN 06/03/23 06/07/23 History 7.5-325] LORazepam [Ativan] 0.5 mg PO BID 06/03/23 06/07/23 History Loperamide [Imodium] 2 - 4 mg PO DIRECTED PRN 06/03/23 06/07/23 History Melatonin 5 mg PO HS 06/03/23 06/07/23 History Omeprazole [PriLOSEC] 20 mg PO AC-BRKFST 06/03/23 06/07/23 History Aspirin [Adult Low Dose Aspirin EC] 81 mg PO BID 30 Days #60 tab 06/07/23 Rx HYDROcodone/APAP 5-325MG [[place] 1 - 2 tab PO Q6HR PRN #32 tab 06/07/23 Rx 5-325] Sennosides [Senokot] 2 tab PO DAILY PRN #60 tablet 06/07/23 Rx Allergies Allergy/AdvReac Type Severity Reaction Status Date / Time No Known Allergies Allergy Verified 06/07/23 08:06 Physical Exam Osteopathic Statement: *. No significant issues noted on an osteopathic structural exam other than those noted in the History and Physical/Consult. Vitals: Vital Signs Temp Pulse Pulse Resp BP BP Pulse Ox 06/07/23 10:49 76 16 154/70 91 L 06/07/23 10:35 72 16 162/69 99 06/07/23 10:20 68 16 149/68 100 06/07/23 10:05 97.3 F L 74 14 155/65 99 06/07/23 08:05 97.0 F L 78 18 164/77 97 Intake and Output 06/06/23 06/07/23 06/07/23 22:59 06:59 14:59 Intake Total 751 Output Total 10 Balance 741 Intake: IV 751 Output: Estimated Blood Loss 10 Other: Weight 67.5 kg
[2023-06-07] MEDS: ASPIRIN 81 MG PO SCH (20:47)
[2023-06-07] MEDS ORDERED: SENNOSIDES-DOCUSATE SODIUM 1 EACH TAB PO SCH (21:00)
--- NOTE | 2023-06-07 22:08 | P.CONS ---
History of Present Illness - Reason for Consult Consult date: 06/07/23 Right hip infection Requesting physician: Saima Rivera - Chief Complaint Right hip pain x few days - History of Present Illness Patient is a 78-year-old female who was recently admitted to this facility patient did have a right hip septic arthritis in this patient who is s/p I&D of the right hip placement of antibiotic beads on 04/20/2023 patient did have previous right total hip arthroplasty performed in 2016 operative findings did shows large amount of purulent material superficial area of the right hip over the lateral incision and there was a tract that went down to the proximal fever most likely communicating with the right hip joint with concern for right hip septic arthritis patient culture subsequently did grew MSSA patient did have a blood culture that admission those were negative patient did get a PICC line and was advised a 6-week course of IV cefazolin 2 g every 8 hours the patient was receiving in the outpatient setting patient did mention that over the last week or so she noticed having increasing blistering to the right hip incision area that has subsequently ruptured and has scabbed over patient was complaining of more pain to the right hip initially subsequently the pain has improved now complaining of more of a dull aching pain 5-6/10 no radiation with associated swelling no significant redness or drainage patient was reevaluated by orthopedic surgeon with the operative findings show small blister on the lateral aspect of the thigh and no purulent material was encountered did not go down to the fascia patient subsequently has been admitted to the hospital she was continued on cefazolin infectious diseases was consulted for further management of antibiotic therapy Review of Systems Positive point and negatives has been mentioned in the HPI, complete review of systems was performed and all other systems are negative Past Medical History Past Medical History: Coronary Artery Disease (CAD), COPD, GERD/Reflux, Hyperlipidemia, Hypertension, Musculoskeletal Disorder, Osteoarthritis (OA), Thyroid Disorder Additional Past Medical History / Comment(s): Degenerative Disc Disease, Chronic neuropathy, Chronic pain syndrome, HX GI BLEED, uses cane for distance, anemia History of Any Multi-Drug Resistant Organisms: None Reported Past Surgical History: Back Surgery, Hysterectomy, Joint Replacement Additional Past Surgical History / Comment(s): Bilateral Cataract surgery, Spinal Stimulator 2006, bilateral hip replacements. EGD, COLONOSCOPY Past Anesthesia/Blood Transfusion Reactions: No Reported Reaction, Motion Sickness Additional Past Anesthesia/Blood Transfusion Reaction / Comm: Hx blood tr ansfusion-no reaction to it. Smoking Status: Former smoker - Past Family History Father Family Medical History: Myocardial Infarction ([place]), Seizure Disorder Additional Family Medical History / Comment(s): . Mother History Unknown: Yes Family Medical History: No Reported History Additional Family Medical History / Comment(s): Hit by car/killed. Brother(s) Additional Family Medical History / Comment(s): Alcoholism, pancreatitis, thyroid disorder, lumbar disc disease prostate issues Sister(s) Additional Family Medical History / Comment(s): Depression Daughter(s) Family Medical History: No Reported History Medications and Allergies Home Medications Medication Instructions Recorded Confirmed Type Furosemide [Lasix] 20 mg PO QAM 10/30/19 06/07/23 History Levothyroxine Sodium 25 mcg PO QAM 10/30/19 06/07/23 History Metoprolol Tartrate 25 mg PO BID 10/30/19 06/07/23 History DULoxetine HCL [Cymbalta] 30 mg PO QAM 11/12/21 06/07/23 History Ferrous Sulfate [Iron (65 MG 2 tab PO DAILY 11/12/21 06/07/23 History Elemental)] Multivit-Min/Iron/Folic/Lutein 1 each PO DAILY 09/18/22 06/07/23 History [Centrum Silver Women Tablet] Potassium Chloride [Potassium 20 meq PO BID 09/18/22 06/07/23 History Chloride ER] Pravastatin Sodium [Pravachol] 40 mg PO HS 09/18/22 06/07/23 History Biotin [Chvc-Azmf-Wbvxd] 10,000 mcg PO DAILY 04/15/23 06/07/23 History Famotidine 20 mg PO QAM 06/03/23 06/07/23 History LORazepam [Ativan] 0.5 mg PO BID 06/03/23 06/07/23 History Loperamide [Imodium] 2 - 4 mg PO DIRECTED PRN 06/03/23 06/07/23 History Melatonin 5 mg PO HS 06/03/23 06/07/23 History Omeprazole [PriLOSEC] 20 mg PO AC-BRKFST 06/03/23 06/07/23 History HYDROcodone/APAP 5-325MG [Freedom 1 - 2 tab PO Q6HR PRN #32 tab 06/07/23 Rx 5-325] Sennosides [Senokot] 2 tab PO DAILY PRN #60 tablet 06/07/23 Rx Cephalexin [Keflex] 500 mg PO Q8HR 30 Days #90 cap 06/08/23 Rx Gabapentin [Neurontin] 300 mg PO TID #6 cap 06/08/23 06/07/23 Rx Allergies Allergy/AdvReac Type Severity Reaction Status Date / Time No Known Allergies Allergy Verified 06/07/23 08:06 Physical Exam Vitals: Vital Signs Temp Pulse Pulse Resp BP BP Pulse Ox 06/07/23 10:49 76 16 154/70 91 L 06/07/23 10:35 72 16 162/69 99 06/07/23 10:20 68 16 149/68 100 06/07/23 10:05 97.3 F L 74 14 155/65 99 06/07/23 08:05 97.0 F L 78 18 164/77 97 Intake and Output 06/06/23 06/07/23 06/07/23 22:59 06:59 14:59 Intake Total 751 Output Total 10 Balance 741 Intake: IV 751 Output: Estimated Blood Loss 10 Other: Weight 67.5 kg GENERAL DESCRIPTION: Elderly female lying in bed, no distress. No tachypnea or accessory muscle of respiration use. HEENT: Shows Pallor , no scleral icterus. Oral mucous membrane is dry. No pharyngeal erythema or thrush NECK: Trachea central, no thyromegaly. LUNGS: Unlabored breathing. Clear to auscultation anteriorly. No wheeze or crackle. HEART: S1, S2, regular rate and rhythm. No loud murmur ABDOMEN: Soft, no tenderness , guarding or rigidity, no organomegaly EXTREMITIES: Right ear is currently covered with Prevana postop vac SKIN: No rash, no masses palpable. NEUROLOGICAL: The patient is awake, alert, oriented x3, mood and affect normal. Results CBC & Chem 7: 06/08/23 05:10 06/08/23 05:10 Assessment and Plan (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 Current Visit: No Status: Acute Code(s): T84.51XA - INFECT/INFLM REACTION DUE TO INTERNAL RIGHT HIP PROSTH, INIT SNOMED Code(s): 115326622 Plan: 1patient with a right hip infection with a previous I&D on 04/20/2023 that was suspicious for possible track tracking down to the artificial hip concerning for septic arthritis culture positive for MSSA and the patient has been receiving cefazolin in the outpatient setting readmitted to hospital for repeat I&D of the area at the patient has developed some blister however operative finding from this morning did not show any purulent material no extension down to the fascia 2-patient to continue cefazolin while inpatient however the patient be transition to oral Keflex as suppressive therapy and close outpatient follow-up this was explained to the patient in layman terms and all questions were answered PICC line should be discontinued before discharge We will follow on clinical condition and cultures to further adjust medication if needed Thank you for this consultation we will follow the patient along with you Dictation was produced using [employer] dictation software. please excuse any gra mmatical, word or spelling errors. Time with Patient: Greater than 30
[2023-06-08] MEDS: HYDROmorphone 0.5 MG/0.5 ML SYRINGE IVP PRN (01:18)
[2023-06-08] MEDS: HYDROcodone/APAP 5-325MG 1 EACH TAB PO PRN ×2 (03:26→15:13)
[2023-06-08 08:17] VITALS: BP 167/87; PULSE 77; RESP 18; TEMP 98.3
[2023-06-08 08:30] LABS: BUN/Creat Ratio 16.57 Ratio (12.00-20.00); Blood Urea Nitrogen 11.6 mg/dL (9.0-27.0); C Reactive Protein <0.30 mg/dL (0.00-0.80); Calcium 9.3 mg/dL (8.7-10.3); Carbon Dioxide 28.7 mmol/L (21.6-31.8); Chloride 108 mmol/L (96-109); Glucose 108 mg/dL (70-110); Potassium 5.3 mmol/L (3.5-5.5); Sodium 145 mmol/L (135-145)
[2023-06-08 08:31] LABS: Basophils # (A) 0.02 X 10*3/uL (0.00-0.10); Basophils % (A) 0.3 %; Eosinophils # (A) 0 X 10*3/uL (0.04-0.35); Eosinophils % (A) 0 %; HGB 10.7 d/dL (12.0-17.0); Lymphocytes # (A) 1.58 X 10*3/uL (0.90-5.00); Lymphocytes % (A) 20.4 %; MCH 27.9 pg (27.0-32.0); MCHC 29.7 d/dL (32.0-37.0); Mean Platelet Volume 8.9 FL (9.5-12.2); Monocytes # (A) 0.53 X 10*3/uL (0.20-1.00); Monocytes % (A) 6.8 %; NRBC Per 100 WBC 0 X 10*3/uL (0.00-0.01); Neutrophils % (A) 72.2 %; Platelet Count 359 X 10*3/uL (140-440); RBC 3.83 X 10*6/uL (4.10-5.60); RDW 13.8 % (11.5-14.5); WBC 7.75 X 10*3/uL (4.50-10.00)
[2023-06-08] MEDS: ASPIRIN 81 MG PO SCH (09:03)
--- NOTE | 2023-06-08 09:17 | P.DS ---
Providers Expected date of discharge: 06/08/23 Attending physician: Amarjit Odonnell Consults: 06/07/23 09:06 Consult Physician Routine Consulting Provider: Kristina Badillo Consult Reason/Comments: medical management Do you want consulting provider notified?: Yes 06/07/23 09:08 Consult Physician Routine Consulting Provider: Mayank Noriega Consult Reason/Comments: s/p repeat I&D right hip Do you want consulting provider notified?: Yes Primary care physician: Masoud Violeta - Discharge Diagnosis(es) (1) History of total replacement of right hip Current Visit: Yes Status: Acute (2) Status post incision and drainage Current Visit: No Status: Acute Hospital Course: This is a 78-year-old female who underwent right total hip arthroplasty in 2015 and presented in April 2023 with symptoms of redness and pain in the right hip area. Patient underwent I&D of the right hip on 04/20/2023 and was doing well, but then developed a blister over the healing surgical incision. The patient presented for evaluation as an outpatient. After discussion and consideration patient elects to proceed with incision and drainage of the right hip. The patient is seen preoperatively by Dr. Odonnell. Patient is admitted to [facility] on 06/07/2023 for incision and drainage of the right hip. The procedure is performed without complication or sequelae. The patient is doing well postoperatively. Labs and vital signs are stable on day of discharge. Patient was evaluated by infectious disease and will be discharged on oral suppressive antibiotics. On day of discharge the patient's Prevena wound vac is clean, dry and intact. There is minimal soft tissue swelling to the hip and thigh. Patient has full foot and ankle motion without difficulty or pain. Calf is soft and nontender to palpation. Neurovascular status to the right lower extremity is intact. Patient is discharged home in good condition. Please see med rec for accurate list of home medications. Plan - Discharge Summary Discharge Rx Participant: No New Discharge Prescriptions: New Aspirin [Adult Low Dose Aspirin EC] 81 mg PO BID 30 Days #60 tab HYDROcodone/APAP 5-325MG [[place] 5-325] 1 - 2 tab PO Q6HR PRN #32 tab PRN Reason: Pain Sennosides [Senokot] 2 tab PO DAILY PRN #60 tablet PRN Reason: Constipation No Action Metoprolol Tartrate 25 mg PO BID Levothyroxine Sodium 25 mcg PO QAM Furosemide [Lasix] 20 mg PO QAM Ferrous Sulfate [Iron (65 MG Elemental)] 2 tab PO DAILY Aspirin 81 mg PO DAILY DULoxetine HCL [Cymbalta] 30 mg PO QAM Pravastatin Sodium [Pravachol] 40 mg PO HS Multivit-Min/Iron/Folic/Lutein [Centrum Silver Women Tablet] 1 each PO DAILY ceFAZolin [Kefzol] 2 gm IVP Q8HR 42 Days ml Gabapentin [Neurontin] 400 mg PO TID #6 cap HYDROcodone/APAP 7.5-325MG [[place] 7.5-325] 1 tab PO Q6H PRN PRN Reason: Pain Melatonin 5 mg PO HS Omeprazole [PriLOSEC] 20 mg PO AC-BRKFST Loperamide [Imodium] 2 - 4 mg PO DIRECTED PRN PRN Reason: loose stools LORazepam [Ativan] 0.5 mg PO BID Potassium Chloride [Potassium Chloride ER] 20 meq PO BID Biotin [Pqnw-Yjfn-Imgkd] 10,000 mcg PO DAILY Famotidine 20 mg PO QAM Discharge Medication List Furosemide [Lasix] 20 mg PO QAM 10/30/19 [History] Levothyroxine Sodium 25 mcg PO QAM 10/30/19 [History] Metoprolol Tartrate 25 mg PO BID 10/30/19 [History] Aspirin 81 mg PO DAILY 11/12/21 [History] DULoxetine HCL [Cymbalta] 30 mg PO QAM 11/12/21 [History] Ferrous Sulfate [Iron (65 MG Elemental)] 2 tab PO DAILY 11/12/21 [History] Multivit-Min/Iron/Folic/Lutein [Centrum Silver Women Tablet] 1 each PO DAILY 09/18/22 [History] Potassium Chloride [Potassium Chloride ER] 20 meq PO BID 09/18/22 [History] Pravastatin Sodium [Pravachol] 40 mg PO HS 09/18/22 [History] Biotin [Leuw-Zazc-Pyevm] 10,000 mcg PO DAILY 04/15/23 [History] Gabapentin [Neurontin] 400 mg PO TID #6 cap 04/26/23 [Rx] ceFAZolin [Kefzol] 2 gm IVP Q8HR 42 Days ml 04/26/23 [Rx] Famotidine 20 mg PO QAM 06/03/23 [History] HYDROcodone/APAP 7.5-325MG [[place] 7.5-325] 1 tab PO Q6H PRN 06/03/23 [History] LORazepam [Ativan] 0.5 mg PO BID 06/03/23 [History] Loperamide [Imodium] 2 - 4 mg PO DIRECTED PRN 06/03/23 [History] Melatonin 5 mg PO HS 06/03/23 [History] Omeprazole [PriLOSEC] 20 mg PO AC-BRKFST 06/03/23 [History] Aspirin [Adult Low Dose Aspirin EC] 81 mg PO BID 30 Days #60 tab 06/07/23 [Rx] HYDROcodone/APAP 5-325MG [[place] 5-325] 1 - 2 tab PO Q6HR PRN #32 tab 06/07/23 [Rx] Sennosides [Senokot] 2 tab PO DAILY PRN #60 tablet 06/07/23 [Rx] Follow up Appointment(s)/Referral(s): Amarjit Odonnell DO [Doctor of Osteopathic Medicine] - 2 Weeks Activity/Diet/Wound Care/Special Instructions: Weightbearing as tolerated with walker. Leave Prevena wound vac in place until follow up in the office in 2 weeks. Please take aspirin 81mg twice daily for 30 days to prevent blood clots. Recommend use of compression stockings daily until follow up to help prevent swelling and blood clots. May remove at night before sleeping. Please follow-up with [facility] in 2 weeks and call with any que stions or concerns, . Discharge Disposition: HOME WITH HOME HEALTH SERVICES
[2023-06-08 10:08] LABS: Erythrocyte Sedimentation Rate 23 mm/Hr (0-30)
--- NOTE | 2023-06-08 12:39 | P.PN ---
Subjective Progress Note Date: 06/08/23 No new complaints, patient is doing well, no fevers, chills, pain. Gen: awake, alert HEENT: normocephalic, atraumatic, good hearing acuity, moist mucous membranes Resp: good air exchange, breathing comfortably with no accessory muscle use CVS: good distal perfusion x 4, GI: soft, NTTP, ND : no SPT, no CVAT, mota catheter not present MSK: no pitting edema, no clubbing Neuro: non-focal, moving all extremities Psych: cooperative, euthymic mood Assessment/Plan: 78-year-old female status post I&D right hip, recent MSSA septic arthritis - D/W DR. Noriega and PICC line was removed by nursing, plan is for discharge home on oral keflex COPD without exacerbation -Patient does not take inhalers at baseline -albuterol every 6 hours as needed Hypertension Dyslipidemia -Resume home metoprolol 25 mg twice daily, Lasix 20 mg daily, Pravachol 40 mg at night Chronic: GERD-Protonix 20 mg daily Hypothyroidism-Synthroid 25 g daily Imaging: None New Data Review: Preoperative blood work reviewed. Creatinine 0.6, hemoglobin 11.6 Thank you for allowing us to participate in the care of this pleasant patient. Do not hesitate to contact us with questions. Someone can be reached from the [facility] hospitalist group all hours of the day at [phone] or via [employer] This dictation was prepared using [employer] voice recognition software. Though every attempt is made to correct errors during dictation some may still exist. Objective - Vital Signs Vital signs: Vital Signs Temp 98.3 F 06/08/23 07:56 Pulse 77 06/08/23 07:56 Resp 18 06/08/23 07:56 BP 167/87 06/08/23 07:56 Pulse Ox 95 06/08/23 07:56 FiO2 Intake & Output 06/07/23 06/08/23 06/08/23 18:59 06:59 18:59 Intake Total 1831 Output Total 10 Balance 1821 Weight 67.5 kg Intake: IV 751 Oral 1080 Output: Estimated Blood Loss 10 Other: Voiding Method Toilet # Voids 1 1 # Bowel Movements 1 - Labs CBC & Chem 7: 06/08/23 05:10 06/08/23 05:10 Labs: Abnormal Lab Results - Last 24 Hours (Table) 06/08/23 Range/Units 05:10 RBC 3.83 L (4.10-5.60) X 10*6/uL Hgb 10.7 L (12.0-17.0) d/dL Hct 36.0 L (37.2-50.0) % MCHC 29.7 L (32.0-37.0) d/dL MPV 8.9 L (9.5-12.2) FL Eosinophils # 0 L (0.04-0.35) X 10*3/uL
[2023-06-08] MEDS: SODIUM CHLORIDE 0.9% 1,000 ML IV SCH (13:55)
--- NOTE | 2023-06-08 14:41 | P.PN ---
Subjective Progress Note Date: 06/08/23 Principal diagnosis: Right hip infection Patient is a 78-year-old female who was recently admitted to this facility patient did have a right hip septic arthritis in this patient who is s/p I&D of the right hip placement of antibiotic beads on 04/20/2023 patient did have previous right total hip arthroplasty performed in 2016 , readmitted to the hospital for repeat I&D and those concern for possible persistent infection however no purulent drainage was noticed and extension on the fascia. on today's evaluation that is 06/08/2023, the patient denies having any fever or chills, the patient is breathing comfortably no chest pain or shortness of cough no nausea no pain or abdominal pain pain to the right hip is currently controlled Objective - Vital Signs Vital signs: Vital Signs Temp 98.3 F 06/08/23 07:56 Pulse 77 06/08/23 07:56 Resp 18 06/08/23 07:56 BP 167/87 06/08/23 07:56 Pulse Ox 95 06/08/23 07:56 FiO2 Intake & Output 06/07/23 06/08/23 06/08/23 18:59 06:59 18:59 Intake Total 1831 Output Total 10 Balance 1821 Weight 67.5 kg Intake: IV 751 Oral 1080 Output: Estimated Blood Loss 10 Other: Voiding Method Toilet # Voids 1 1 # Bowel Movements 1 - Exam GENERAL DESCRIPTION: An elderly female lying in bed in no distress RESPIRATORY SYSTEM: Unlabored breathing , decreased breath sounds at bases HEART: S1 S2 regular rate and rhythm , ABDOMEN: Soft , no tenderness EXTREMITIES: No edema feet - Labs CBC & Chem 7: 06/08/23 05:10 06/08/23 05:10 Labs: Abnormal Lab Results - Last 24 Hours (Table) 06/08/23 Range/Units 05:10 RBC 3.83 L (4.10-5.60) X 10*6/uL Hgb 10.7 L (12.0-17.0) d/dL Hct 36.0 L (37.2-50.0) % MCHC 29.7 L (32.0-37.0) d/dL MPV 8.9 L (9.5-12.2) FL Eosinophils # 0 L (0.04-0.35) X 10*3/uL Assessment and Plan (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 Current Visit: No Status: Acute Code(s): T84.51XA - INFECT/INFLM REACTION DUE TO INTERNAL RIGHT HIP PROSTH, INIT SNOMED Code(s): 509315872 Plan: 1patient with a right hip infection with a previous I&D on 04/20/2023 that was suspicious for possible track tracking down to the artificial hip concerning for septic arthritis culture positive for MSSA and the patient has been receiving cefazolin in the outpatient setting readmitted to hospital for repeat I&D of the area at the patient has developed some blister however operative finding from this morning did not show any purulent material no extension down to the fascia 2-patient will be given oral Keflex as suppressive therapy and close outpatient follow-up prescription was sent to the pharmacy questions and concerns were answered Dictation was produced using [employer] dictation software. please excuse any grammatical, word or spelling errors. Time with Patient: Less than 30
== END 2023-06-08 16:12 | disposition home health service (06) ==
LOC: OR 07:39 → 4SSUR 10:35 → OR 06-08 16:12
PROVIDERS: ATTEND Orthopaedic Surgery
DX: T84.51XA Infection and inflammatory reaction due to internal right hip prosthesis, initial encounter (principal); I10 Essential (primary) hypertension; E78.5 Hyperlipidemia, unspecified; E03.9 Hypothyroidism, unspecified; J44.9 Chronic obstructive pulmonary disease, unspecified; Z82.49 Family history of ischemic heart disease and other diseases of the circulatory system; I25.10 Atherosclerotic heart disease of native coronary artery without angina pectoris
CPT/HCPCS: 97162; 97166; 80048; 85652; 85025; 86140; 26991; J2250; J1100; J0690 ×3; J2405; J3010; J2704; J1170 ×2; J2001; J2371

== ENCOUNTER 2023-10-25 09:00 | Emergency (ER) | payer MEDICARE, OTHER ==
[2023-10-25 09:25] VITALS: BP 111/58; PULSE 72; RESP 20; TEMP 98.4
--- NOTE | 2023-10-25 09:38 | XR ---
EXAMINATION TYPE: XR chest 2V DATE OF EXAM: 10/25/2023 COMPARISON: 12/06/2019, 04/17/2020 TECHNIQUE: PA and lateral views submitted. HISTORY: Foreign body FINDINGS: The lungs are clear and there is no pneumothorax, pleural effusion, or focal pneumonia. Heart size normal and no overt failure. Osseous structures demonstrate hypertrophic and degenerative changes of the spine. Leads are seen overlying the thoracic spine. Correlate for underlying emphysema and chroni c interstitial lung disease. Small hiatal hernia suspected. Apical pleural thickening. Punctate nodul arity in the left lobe measuring subcentimeter in size. Atherosclerotic change aorta. Apical pleural thickening. IMPRESSION: 1. No acute process. No radio metallic foreign body
--- NOTE | 2023-10-25 09:40 | XR ---
EXAMINATION TYPE: XR KUB DATE OF EXAM: 10/25/2023 COMPARISON: NONE HISTORY: Foreign body TECHNIQUE: One view abdominal series FINDINGS: The osseous structures are intact. The bowel gas pattern is nonspecific. There is a nodular density. Scoliosis of the spine with degenerative change and postsurgical bilateral hip. Stimulator device no john. There is a metallic foreign body in the right pelvis.. IMPRESSION: 1. Nonspecific abdomen. Metallic foreign body seen in the right pelvis with the distal colon or smal l bowel. 2. There is a nodule at the left lung base measuring 1.[address] chest.
--- NOTE | 2023-10-25 09:43 | ED ---
General Adult HPI - General Chief complaint: Recheck/Abnormal Lab/Rx Stated complaint: Swallowed FB Time Seen by Provider: 10/25/23 09:15 Source: patient, RN notes reviewed, old records reviewed Mode of arrival: ambulatory Limitations: no limitations - History of Present Illness Initial comments: This is a 78-year-old female presents emergency department stating that on October 13 she swallowed one of her implanted teeth. And she states she's had no symptoms since but she's had multiple x-rays and her primary wanted to come in to see if it is finally out of her system. Patient denies any abdominal pain patient denies any back pain. Patient denies any other symptoms at all. - Related Data Home Medications Medication Instructions Recorded Confirmed Furosemide [Lasix] 20 mg PO QAM 10/30/19 06/07/23 Levothyroxine Sodium 25 mcg PO QAM 10/30/19 06/07/23 Metoprolol Tartrate 25 mg PO BID 10/30/19 06/07/23 DULoxetine HCL [Cymbalta] 30 mg PO QAM 11/12/21 06/07/23 Ferrous Sulfate [Iron (65 MG 2 tab PO DAILY 11/12/21 06/07/23 Elemental)] Multivit-Min/Iron/Folic/Lutein 1 each PO DAILY 09/18/22 06/07/23 [Centrum Silver Women Tablet] Potassium Chloride [Potassium 20 meq PO BID 09/18/22 06/07/23 Chloride ER] Pravastatin Sodium [Pravachol] 40 mg PO HS 09/18/22 06/07/23 Biotin [Pvqu-Khrv-Zghph] 10,000 mcg PO DAILY 04/15/23 06/07/23 Famotidine 20 mg PO QAM 06/03/23 06/07/23 LORazepam [Ativan] 0.5 mg PO BID 06/03/23 06/07/23 Loperamide [Imodium] 2 - 4 mg PO DIRECTED PRN 06/03/23 06/07/23 Melatonin 5 mg PO HS 06/03/23 06/07/23 Omeprazole [PriLOSEC] 20 mg PO AC-BRKFST 06/03/23 06/07/23 Previous Rx's Medication Instructions Recorded HYDROcodone/APAP 5-325MG [[place] 1 - 2 tab PO Q6HR PRN #32 tab 06/07/23 5-325] Sennosides [Senokot] 2 tab PO DAILY PRN #60 tablet 06/07/23 Cephalexin [Keflex] 500 mg PO Q8HR 30 Days #90 cap 06/08/23 Gabapentin [Neurontin] 300 mg PO TID #6 cap 06/08/23 Peg 3350 (236 gm/Btl) + Lytes 4,000 ml PO DIRECTED #1 each 10/25/23 [Golytely Lavage] Allergies Allergy/AdvReac Type Severity Reaction Status Date / Time No Known Allergies Allergy Verified 10/25/23 09:13 Review of Systems ROS Statement: Those systems with pertinent positive or pertinent negative responses have been documented in the HPI. ROS Other: All systems not noted in ROS Statement are negative. Past Medical History Past Medical History: Coronary Artery Disease (CAD), COPD, GERD/Reflux, Hyperlipidemia, Hypertension, Musculoskeletal Disorder, Osteoarthritis (OA), Thyroid Disorder Additional Past Medical History / Comment(s): Degenerative Disc Disease, Chronic neuropathy, Chronic pain syndrome, HX GI BLEED, uses cane for distance, anemia History of Any Multi-Drug Resistant Organisms: None Reported Past Surgical History: Back Surgery, Hysterectomy, Joint Replacement Additional Past Surgical History / Comment(s): Bilateral Cataract surgery, Spinal Stimulator 2006, bilateral hip replacements. EGD, COLONOSCOPY Past Anesthesia/Blood Transfusion Reactions: No Reported Reaction, Motion Sickness Additional Past Anesthesia/Blood Transfusion Reaction / Comment(s): Hx blood transfusion-no reaction to it. Past Psychological History: Anxiety, Depression Smoking Status: Former smoker Past Alcohol Use History: None Reported Past Drug Use History: None Reported - Past Family History Father Family Medical History: Myocardial Infarction (SD), Seizure Disorder Additional Family Medical History / Comment(s): . Mother History Unknown: Yes Family Medical History: No Reported History Additional Family Medical History / Comment(s): Hit by car/killed. Brother(s) Additional Family Medical History / Comment(s): Alcoholism, pancreatitis, thyroid disorder, lumbar disc disease prostate issues Sister(s) Additional Family Medical History / Comment(s): Depression Daughter(s) Family Medical History: No Reported History General Exam - General Exam Comments Initial Comments: GENERAL: Patient is well-developed and well-nourished. Patient is nontoxic and well- hydrated and is in no acute distress. ENT: Neck is soft and supple. No significant lymphadenopathy is noted. Oropharynx is clear. Moist mucous membranes. EYES: The sclera were anicteric and conjunctiva were pink and moist. Extraocular movements were intact and pupils were equal round and reactive to light. Eyelids were unremarkable. ABDOMEN: Soft and nontender with normal bowel sounds. SKIN: Skin is clear with no lesions or rashes and otherwise unremarkable. NEUROLOGIC: Patient is alert and oriented x3. Cranial nerves II through XII are grossly intact. Motor and sensory are also intact. Normal speech, volume and content. Symmetrical smile. MUSCULOSKELETAL: Normal extremities with adequate strength and full range of motion. No lower extremity swelling or edema. No calf tenderness. PSYCHIATRIC: Normal psychiatric evaluation. Limitations: no limitations Course Vital Signs 10/25/23 09:11 Temperature 98.4 F Pulse Rate 72 Respiratory 20 Rate Blood Pressure 111/58 O2 Sat by Pulse 96 Oximetry Medical Decision Making - Medical Decision Making Was pt. sent in by a medical professional or institution (, PA, [facility], urgent care, hospital, or penitentiary...) When possible be specific @ -Patient's primary medical care doctor sent the patient to be evaluated Did you speak to anyone other than the patient for history (EMS, parent, family, police, friend...)? What history was obtained from this source @ -Daughter help with the history Did you review nursing and triage notes (agree or disagree)? Why? @ -I reviewed and agree with nursing and triage notes Were old charts reviewed (outside hosp., previous admission, EMS record, old E KG, old radiological studies, urgent care reports/EKG's, penitentiary records)? Report findings @ -I reviewed prior outside radiological studies Differential Diagnosis (chest pain, altered mental status, abdominal pain women, abdominal pain men, vaginal bleeding, weakness, fever, dyspnea, syncope, headache, dizziness, GI bleed, back pain, seizure, CVA, palpatations, mental health, musculoskeletal)? @ -not applicable EKG interpreted by me (3pts min.). @ -As above X-rays interpreted by me (1pt min.). @ -KUB showed foreign body in the right lower pelvis which was similar to the one seen on October 18 October [address] interpreted by me (1pt min.). @ -None done U/S interpreted by me (1pt. min.). @ -None done What testing was considered but not performed or refused? (CT, X-rays, U/S, labs)? Why? @ -None What meds were considered but not given or refused? Why? @ -None Did you discuss the management of the patient with other professionals (professionals i.e. , PA, [facility], lab, RT, psych nurse, rn social work, earth moving technician, teacher, department of natural resources officer, disease case manager rn)? Give summary @ -I spoke with Dr. Paz he wanted to see the patient after she had GoLYTELY and did another x-ray. He was okay with this as long as the patient remained asymptomatic if she became symptomatic at all she is to come back to the emergency department immediately. Was smoking cessation discussed for >3mins.? @ -No Was critical care preformed (if so, how long)? @ -No Were there social determinants of health that impacted care today? How? (Homelessness, low income, unemployed, alcoholism, drug addiction, transportation, low edu. Level, literacy, decrease access to med. care, [facility], rehab)? @ -No Was there de-escalation of care discussed even if they declined (Discuss DNR or withdrawal of care, Hospice)? DNR status @ -No What co-morbidities impacted this encounter? (DM, HTN, Smoking, COPD, CAD, Cancer, CVA, ARF, Chemo, Hep., AIDS, mental health diagnosis, sleep apnea, morbid obesity)? @ -None Was patient admitted / discharged? Hospital course, mention meds given and route, prescriptions, significant lab abnormalities, going to OR and other pertinent info. @ -Patient was a symptomatic throughout her ED course. Patient understood that she would have to do GoLYTELY and then follow up with an x-ray and follow-up with Dr. Paz Undiagnosed new problem with uncertain prognosis? @ -No Drug Therapy requiring intensive monitoring for toxicity (Heparin, Nitro, Insulin, Cardizem)? @ -No Were any procedures done? @ -No Diagnosis/symptom? @ -Foreign body colon Acute, or Chronic, or Acute on Chronic? @ -Acute Uncomplicated (without systemic symptoms) or Complicated (systemic symptoms)? @ -Uncomplicated Side effects of treatment? @ -No Exacerbation, Progression, or Severe Exacerbation? @ -No Poses a threat to life or bodily function? How? (Chest pain, USA, SD, pneumonia, PE, COPD, DKA, ARF, appy, cholecystitis, CVA, Diverticulitis, Homicidal, Suicidal, threat to staff... and all critical care pts) @ -No Disposition Clinical Impression: Foreign body in colon Disposition: HOME SELF-CARE Condition: Good Prescriptions: Peg 3350 (236 gm/Btl) + Lytes [Golytely Lavage] 4,000 ml PO DIRECTED #1 each Is patient prescribed a controlled substance at d/c from ED?: No Referrals: Masoud Mcdaniel MD [Primary Care Provider] - 1-2 days Time of Disposition: 10:16
== END 2023-10-25 12:03 | disposition home or self-care (01) ==
LOC: EC 09:00
DX: T18.4XXA Foreign body in colon, initial encounter (principal); E78.5 Hyperlipidemia, unspecified; I10 Essential (primary) hypertension; I25.10 Atherosclerotic heart disease of native coronary artery without angina pectoris; J44.9 Chronic obstructive pulmonary disease, unspecified; K21.9 Gastro-esophageal reflux disease without esophagitis; F32.A Depression, unspecified; F41.9 Anxiety disorder, unspecified; Z87.891 Personal history of nicotine dependence; Z79.899 Other long term (current) drug therapy
CPT/HCPCS: 71046; 74018; 99284

== ENCOUNTER 2024-06-13 09:36 | Day surgery (SDC) | payer MEDICARE, OTHER ==
[2024-06-09 15:35] VITALS: BMI 25.9
[~2024-06-13 09:36] MED LIST changes: +HYDROmorphone 0.5 MG/0.5 ML SYRINGE IVP PRN; +MIDAZOLAM 2 MG/2 ML VIAL IV PRN; -Pre Op ABX Message 1 EACH MISC MISCELLANE ONE
[2024-06-13] MEDS ORDERED: HYDROcodone/APAP 5-325MG 1 EACH TAB PO PRN (10:39)
[2024-06-13] MEDS ORDERED: ONDANSETRON 4 MG/2 ML VIAL IVP PRN (10:39)
[2024-06-13] MEDS ORDERED: HYDROmorphone 0.5 MG/0.5 ML SYRINGE IVP PRN ×3 (10:39)
[2024-06-13] MEDS ORDERED: MAGNESIUM HYDROXIDE 2,400 MG/30 ML CUP PO PRN (10:39)
[2024-06-13] MEDS ORDERED: NALOXONE 0.4 MG/ML 1 ML VIAL IV PRN (10:39)
[2024-06-13] MEDS: ONDANSETRON 4 MG/2 ML VIAL IVP ONE (10:43)
[2024-06-13] MEDS: DEXAMETHASONE SOD PHOSPHATE 4 MG/ML 1 ML VIAL IV ONE (10:43)
[2024-06-13] MEDS: LACTATED RINGERS 1,000 ML IV SCH (10:43)
[2024-06-13] MEDS: IV FLUID CONTINUATION 900 ML IV ONE (10:44)
[2024-06-13] MEDS ORDERED: LIDOCAINE 1% INJ 10MG/ML (20 ML MDV) ONE (10:54)
[2024-06-13] MEDS ORDERED: KETOROLAC 15 MG/ML 1 ML VIAL ONE (10:54)
[2024-06-13] MEDS ORDERED: PROPOFOL 10 MG/ML 20 ML VIAL IV ONE (10:54)
[2024-06-13] MEDS: SODIUM CHLORIDE 0.9% 50 ML with ceFAZolin 2,000 MG IV ONE (10:58)
--- NOTE | 2024-06-13 11:24 | P.OP ---
Date of Procedure: 06/13/24 Preoperative Diagnosis: Chronic infection right hip Postoperative Diagnosis: Chronic infection right hip Procedure(s) Performed: Irrigation and debridement right hip Anesthesia: ANTHONY Surgeon: Amarjit Odonnell Manager Stone #1: Saima Rivera Estimated Blood Loss (ml): 10 Pathology: other (cultures 2) Condition: stable Disposition: PACU Indications for Procedure: This is an 79-year-old female that had a right total hip arthroplasty performed on August 242015. She did well and then years later and 2022 she developed a draining sinus at the distal aspect of her right hip incision. 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 She elected to have chronic antibiotic suppression as opposed to complete removal of her right hip prosthesis with the placement of an antibiotic spacer. She then presented last week to the office with the sinus reopen and drainage from that site. We discussed the surgical and nonsurgical treatment options at length, and she w ishes to proceed with an irrigation and debridement of the site. She does NOT wish to have a stage I revision right total hip arthroplasty with removal of components and placement of antibiotic spacer. Informed consent was obtained. 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 The operative site was marked with a skin marker. The patient verified the procedure and operative site. The patient was then brought to the operating room and given preoperative antibiotics intravenously. A spinal anesthetic was administered by the anesthesia department. The patient was then placed supine on the operating table with the bony prominences well-padded. The hip area was then prepped with a ChloraPrep solution and draped in the usual sterile fashion. A universal timeout was then performed, which confirmed the patient's name, surgical site, ALLERGIES, and procedure being performed on the consent. the draining sinus was then surgically excised sharply with a knife. Any suspicious tissue was removed sharply with a knife. Cultures were obtained 2 of the area. After thorough debridement down to the fascia, a thorough irrigation was performed pulsatile lavage. Irricept solution was also irrigated through the wound. the sinus tract did extend through the fascia, and the fascia was then opened and the area was irrigated and debrided deep to the fascia. The tissues were debrided sharply with a knife deep to the fascia as well as with a Ronguer deep to the fascia. After the hip was then copiously irrigated with antibiotic solution with pulsatile lavage, the fascia was then closed with 0 Vicryl suture. The subcutaneous tissue was closed with 3-0 Vicryl. The subcuticular tissue was closed with 3-0 strata fix suture. The skin was then closed with Exofin skin glue. After the glue and dried, and Optifoam silver impregnated dressing was applied. The patient was then transferred to the recovery room in stable condition. The assistant sales center manager FABBY Alanis was required due to the complexity of surgery, and the need for skilled surgical tech for positioning, draping, exposure, retraction, and closure of the wound.
[2024-06-13] MEDS: Pre Op ABX Message 1 EACH MISC MISCELLANE ONE (15:27)
[2024-06-13] MEDS: HYDROcodone/APAP 5-325MG 1 EACH TAB PO PRN (17:34)
[2024-06-13] MEDS: SODIUM CHLORIDE 0.9% 1,000 ML IV SCH (20:30)
[2024-06-13] MEDS: SENNOSIDES-DOCUSATE SODIUM 1 EACH TAB PO SCH (20:38)
[2024-06-13] MEDS: ASPIRIN 81 MG PO SCH (20:38)
[2024-06-13] MEDS: METOPROLOL TARTRATE 25 MG TAB PO SCH (20:38)
[2024-06-13] MEDS: PRAVASTATIN SODIUM 40 MG TAB PO SCH (20:38)
--- NOTE | 2024-06-13 23:04 | P.CONS ---
History of Present Illness - Reason for Consult Consult date: 06/13/24 Medical management - Chief Complaint Status post right hip joint I&D - History of Present Illness Patient is a 79-year-old female with a past medical history of coronary artery disease, history of bilateral hip replacement, COPD, hypertension, hyperlipidemia, osteoarthritis, hypothyroidism and ongoing infection of the right hip since right hip replacement about a year ago. Patient also has chronic pain syndrome and spinal stimulator. Does have history of anxiety/depression and prior history of smoking she also has history of prescription pain medication and benzodiazepine abuse. She was admitted to hospital for right hip incision and drainage. Currently pain is fairly controlled. No complaints of chest pain or shortness of breath. Patient has been afebrile. Postoperatively blood pressure is 96/54 pulse 93 respirations 20 and pulse ox 96% on room air. Laboratory data is not available at this time. Review of Systems Constitutional: Patient denies any fever or chills . No generalized weakness or weight loss. Abdomen: Patient denied nausea vomiting and diarrhea and abdominal pain. Cardiovascular: Patient denies any chest pain or short of breath no palpitations. Respiratory: patient denied any cough or sputum production. No shortness of breath Neurologic: Patient denied any numbness or tingling. no headache. Musculoskeletal: Patient denies any complaints of joint swelling or deformity. Skin: Negative Psychiatric: Negative Endocrine: No heat or cold intolerance. No recent weight gain. Genitourinary: No dysuria or hematuria. All other 14 point ROS negative except the above Past Medical History Past Medical History: Coronary Artery Disease (CAD), COPD, GERD/Reflux, GI Bleed, Hyperlipidemia, Hypertension, Musculoskeletal Disorder, Osteoarthritis (OA), Thyroid Disorder Additional Past Medical History / Comment(s): Ongoing problems with infection of right hip since right hip replacement a year ago. Degenerative Disc Disease, Chronic neuropathy, Chronic pain syndrome, anemia. History of Any Multi-Drug Resistant Organisms: None Reported Past Surgical History: Back Surgery, Hysterectomy, Joint Replacement Additional Past Surgical History / Comment(s): Bilateral Cataract surgery, Spinal Stimulator 2006, bilateral hip replacements, EGD, COLONOSCOPY. Past Anesthesia/Blood Transfusion Reactions: No Reported Reaction, Motion Sickness Additional Past Anesthesia/Blood Transfusion Reaction / Comm: Hx blood transfusion-no reaction to it. Past Psychological History: Anxiety, Depression Additional Psychological History / Comment(s): . Smoking Status: Former smoker Past Alcohol Use History: None Reported Additional Past Alcohol Use History / Comment(s): Quit smoking Jul 2016, started smoking as a teen, smoked 1 PPD. Past Drug Use History: None Reported Additional Drug Use History / Comment(s): Hx of prescription pain medication (opiates) and benzodiazapine abuse from [id number]. - Past Family History Father Family Medical History: Myocardial Infarction (AR), Seizure Disorder Additional Family Medical History / Comment(s): . Mother History Unknown: Yes Family Medical History: No Reported History Additional Family Medical History / Comment(s): Hit by car/killed. Brother(s) Additional Family Medical History / Comment(s): Alcoholism, pancreatitis, thyroid disorder, lumbar disc disease prostate issues Sister(s) Additional Family Medical History / Comment(s): Depression Daughter(s) Family Medical History: No Reported History Medications and Allergies Home Medications Medication Instructions Recorded Confirmed Type Furosemide [Lasix] 20 mg PO QAM 10/30/19 06/09/24 History Metoprolol Tartrate 25 mg PO BID 10/30/19 06/09/24 History DULoxetine HCL [Cymbalta] 30 mg PO QAM 11/12/21 06/09/24 History Ferrous Sulfate [Iron (65 MG 2 tab PO DAILY 11/12/21 06/09/24 History Elemental)] Multivit-Min/Iron/Folic/Lutein 1 each PO DAILY 09/18/22 06/09/24 History [Centrum Silver Women Tablet] Potassium Chloride [Potassium 10 meq PO QAM 09/18/22 06/09/24 History Chloride ER] Pravastatin Sodium [Pravachol] 40 mg PO HS 09/18/22 06/09/24 History LORazepam [Ativan] 0.5 mg PO TID 06/03/23 06/09/24 History Acetaminophen Tab [Tylenol Tab] 1,000 mg PO TID 06/09/24 06/09/24 History Aspirin [Adult Low Dose Aspirin EC] 81 mg PO DAILY 06/09/24 06/09/24 History Calcium Carbonate [Calcium] 600 mg PO DAILY 06/09/24 06/09/24 History Cephalexin [Keflex] 500 mg PO TID 06/09/24 06/09/24 History L.acidoph,Paracasei, B.lactis 1 each PO DAILY 06/09/24 06/09/24 History [Probiotic] Levothyroxine Sodium [Euthyrox] 25 mcg PO QAM 06/09/24 06/09/24 History Pantoprazole [Protonix] 40 mg PO QAM 06/09/24 06/09/24 History diphenhydrAMINE HCL [Benadryl] 25 mg PO HS 06/09/24 06/09/24 History traMADol HCL 50 mg PO BID 06/09/24 06/09/24 History HYDROcodone/APAP 5-325MG [[place] 1 tab PO Q6HR PRN #28 tab 06/13/24 Rx 5-325] Sennosides [Senokot] 2 tab PO DAILY PRN #60 tablet 06/13/24 Rx Allergies Allergy/AdvReac Type Severity Reaction Status Date / Time No Known Allergies Allergy Verified 06/13/24 10:32 Physical Exam Vitals: Vital Signs Temp Pulse Resp BP Pulse Ox 06/13/24 19:48 98.1 F 82 16 97/61 98 06/13/24 15:20 98.3 F 93 20 96/54 96 06/13/24 14:30 85 16 106/52 95 06/13/24 14:00 83 16 108/56 95 06/13/24 13:30 75 16 139/63 94 L 06/13/24 13:00 86 16 128/60 94 L 06/13/24 12:30 76 16 130/62 96 06/13/24 12:26 75 15 131/58 100 06/13/24 12:11 73 16 130/48 98 06/13/24 11:56 78 16 134/65 96 06/13/24 11:41 97.1 F L 79 98 H 115/66 06/13/24 10:32 97.6 F 72 18 129/60 98 Intake and Output 06/13/24 06/13/24 06/14/24 14:59 22:59 06:59 Intake Total 950 350 Output Total 10 Balance 940 350 Intake: IV 950 Intake, IV Titration 150 Amount Sodium Chloride 0.9% 50 150 ml @ 0 mls/hr IV .STK-MED ONE with ceFAZolin 2,000 mg Rx#:[id number] Oral 200 Output: Estimated Blood Loss 10 Other: Weight 67.5 kg PHYSICAL EXAMINATION: Patient is lying in the bed comfortably, no acute distress, awake alert and oriented.. HEENT: Normocephalic. Neck is supple. Pupils reactive. Nostrils clear. Oral cavity is moist. Neck reveals no JVD, carotid bruits, or thyromegaly. CHEST EXAMINATION: Trachea is central. Symmetrical expansion. Lung smith clear to auscultation and percussion. CARDIAC: Normal S1, S2 with no gallops. No murmurs ABDOMEN: Soft. Bowel sounds normal. No organomegaly. No abdominal bruits. Extremities: reveal no edema. No clubbing or cyanosis Neurologically awake, alert, oriented x3 with well-coordinated movements. No focal deficits noted Skin: No rash or skin lesions. Psychiatric: Coperative. Nonsuicidal Musculoskeletal: No joint swelling or deformity. Right hip surgical site bandaged. Normal range of motion. Assessment and Plan Assessment: s/p I&D right hip due to chronic infection. Postoperative day 0 History of bilateral hip replacement Coronary artery disease with no prior history of PCI COPD Hypertension Hyperlipidemia Osteoarthritis Hypothyroidism Chronic pain syndrome and was placed on nerve stimulator History of prescription pain medication use resolved. DVT prophylaxis as per primary team Plan: Patient will be continued on current pain medications, bowel regimen and encourage incentive spirometry. Follow-up intraoperative culture report. Continue with home medications including metoprolol, levothyroxine. Monitor blo od pressure. Encourage oral intake. Aspirin will be started back if no further surgical intervention. Continue other home medications and follow-up closely. Further recommendations based on clinical course. Follow-up CBC and BMP. ID is on board. Thank you kindly for your consult. Time with Patient: Greater than 30
[2024-06-14] MEDS: LEVOTHYROXINE 25 MCG TAB PO SCH (05:12)
[2024-06-14] MEDS: MELATONIN 5 MG TABLET PO PRN (05:15)
[2024-06-14 07:27] VITALS: BP 134/57; PULSE 77; RESP 16; TEMP 97.6
--- NOTE | 2024-06-14 08:03 | P.CONS ---
History of Present Illness - Reason for Consult Consult date: 06/13/24 Status post I&D right hip Requesting physician: Saima Rivera - Chief Complaint Right hip drainage x months - History of Present Illness Patient is a 79-year-old female with a past medical history significant for hypertension hyperlipidemia coronary artery disease COPD osteomyelitis patient has been dealing with right hip infection for more than a year as the patient has developed a draining sinus at the distal aspect of the right hip last I&D was done in April 2023 culture has been positive for MSSA and the patient has been on suppressive oral Keflex however patient continued to have problems with persistent drainage from the right hip with the patient was sent back to the orthopedic surgeon who has reevaluated the patient patient has been given the option of removal of the prosthetic joint and more definitive surgical treatment however per the Ortho note the patient has opted for I&D only which was completed today deep culture were obtained infectious he was consulted for further management of antibiotic therapy patient currently denies having any fever or any chills, the patient is breathing comfortably on room air patient denies having any chest pain shortness of breath or cough denies having nausea no vomiting she did have some pain to the right hip area more of a dull aching mild to moderate without any radiation patient on presentation to the hospital was afebrile and no fever have recorded subsequently local culture has been obtained started on cefazolin infectious he was consulted for further management of antibiotic therapy Review of Systems Positive point and negatives has been mentioned in the HPI, complete review of systems was performed and all other systems are negative Past Medical History Past Medical History: Coronary Artery Disease (CAD), COPD, GERD/Reflux, GI Bleed, Hyperlipidemia, Hypertension, Musculoskeletal Disorder, Osteoarthritis (OA), Thyroid Disorder Additional Past Medical History / Comment(s): Ongoing problems with infection of right hip since right hip replacement a year ago. Degenerative Disc Disease, Chronic neuropathy, Chronic pain syndrome, anemia. History of Any Multi-Drug Resistant Organisms: None Reported Past Surgical History: Back Surgery, Hysterectomy, Joint Replacement Additional Past Surgical History / Comment(s): Bilateral Cataract surgery, Spinal Stimulator 2006, bilateral hip replacements, EGD, COLONOSCOPY. Past Anesthesia/Blood Transfusion Reactions: No Reported Reaction, Motion Sickness Additional Past Anesthesia/Blood Transfusion Reaction / Comm: Hx blood transfusion-no reaction to it. Past Psychological History: Anxiety, Depression Additional Psychological History / Comment(s): . Smoking Status: Former smoker Past Alcohol Use History: None Reported Additional Past Alcohol Use History / Comment(s): Quit smoking Jul 2016, started smoking as a teen, smoked 1 PPD. 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 - Past Family History Father Family Medical History: Myocardial Infarction (CA), Seizure Disorder Additional Family Medical History / Comment(s): . Mother History Unknown: Yes Family Medical History: No Reported History Additional Family Medical History / Comment(s): Hit by car/killed. Brother(s) Additional Family Medical History / Comment(s): Alcoholism, pancreatitis, thyroid disorder, lumbar disc disease prostate issues Sister(s) Additional Family Medical History / Comment(s): Depression Daughter(s) Family Medical History: No Reported History Medications and Allergies Home Medications Medication Instructions Recorded Confirmed Type Furosemide [Lasix] 20 mg PO QAM 10/30/19 06/09/24 History Metoprolol Tartrate 25 mg PO BID 10/30/19 06/09/24 History DULoxetine HCL [Cymbalta] 30 mg PO QAM 11/12/21 06/09/24 History Ferrous Sulfate [Iron (65 MG 2 tab PO DAILY 11/12/21 06/09/24 History Elemental)] Multivit-Min/Iron/Folic/Lutein 1 each PO DAILY 09/18/22 06/09/24 History [Centrum Silver Women Tablet] Potassium Chloride [Potassium 10 meq PO QAM 09/18/22 06/09/24 History Chloride ER] Pravastatin Sodium [Pravachol] 40 mg PO HS 09/18/22 06/09/24 History LORazepam [Ativan] 0.5 mg PO TID 06/03/23 06/09/24 History Acetaminophen Tab [Tylenol Tab] 1,000 mg PO TID 06/09/24 06/09/24 History Aspirin [Adult Low Dose Aspirin EC] 81 mg PO DAILY 06/09/24 06/09/24 History Calcium Carbonate [Calcium] 600 mg PO DAILY 06/09/24 06/09/24 History Cephalexin [Keflex] 500 mg PO TID 06/09/24 06/09/24 History L.acidoph,Paracasei, B.lactis 1 each PO DAILY 06/09/24 06/09/24 History [Probiotic] Levothyroxine Sodium [Euthyrox] 25 mcg PO QAM 06/09/24 06/09/24 History Pantoprazole [Protonix] 40 mg PO QAM 06/09/24 06/09/24 History diphenhydrAMINE HCL [Benadryl] 25 mg PO HS 06/09/24 06/09/24 History traMADol HCL 50 mg PO BID 06/09/24 06/09/24 History HYDROcodone/APAP 5-325MG [[place] 1 tab PO Q6HR PRN #28 tab 06/13/24 Rx 5-325] Sennosides [Senokot] 2 tab PO DAILY PRN #60 tablet 06/13/24 Rx Allergies Allergy/AdvReac Type Severity Reaction Status Date / Time No Known Allergies Allergy Verified 06/13/24 10:32 Physical Exam Vitals: Vital Signs Temp Pulse Resp BP Pulse Ox 06/13/24 19:48 98.1 F 82 16 97/61 98 06/13/24 15:20 98.3 F 93 20 96/54 96 06/13/24 14:30 85 16 106/52 95 06/13/24 14:00 83 16 108/56 95 06/13/24 13:30 75 16 139/63 94 L 06/13/24 13:00 86 16 128/60 94 L 06/13/24 12:30 76 16 130/62 96 06/13/24 12:26 75 15 131/58 100 06/13/24 12:11 73 16 130/48 98 06/13/24 11:56 78 16 134/65 96 06/13/24 11:41 97.1 F L 79 98 H 115/66 06/13/24 10:32 97.6 F 72 18 129/60 98 Intake and Output 06/13/24 06/13/24 06/13/24 06:59 14:59 22:59 Intake Total 950 350 Output Total 10 Balance 940 350 Intake: IV 950 Intake, IV Titration 150 Amount Sodium Chloride 0.9% 50 150 ml @ 0 mls/hr IV .STK-MED ONE with ceFAZolin 2,000 mg Rx#:[id number] Oral 200 Output: Estimated Blood Loss 10 Other: Weight 67.5 kg GENERAL DESCRIPTION: Elderly female lying in bed, no distress. No tachypnea or accessory muscle of respiration use. HEENT: Shows Pallor , no scleral icterus. Oral mucous membrane is dry. No pharyngeal erythema or thrush NECK: Trachea central, no thyromegaly. LUNGS: Unlabored breathing. Clear to auscultation anteriorly. No wheeze or crackle. HEART: S1, S2, regular rate and rhythm. No loud murmur ABDOMEN: Soft, no tenderness , guarding or rigidity, no organomegaly EXTREMITIES: Right hip currently dressed in OR dressing SKIN: No rash, no masses palpable. NEUROLOGICAL: The patient is awake, alert, oriented x3, mood and affect normal. Assessment and Plan (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 Current Visit: No Status: Acute Code(s): T84.51XA - INFECT/INFLM REACTION DUE TO INTERNAL RIGHT HIP PROSTH, INIT SNOMED Code(s): 81160123638821506 Plan: 1patient with a history of chronic infection to the right hip and this patient has previously required I&D however the patient seem to have a problem with persistent drainage from the right hip for the patient has been readmitted to hospital status post I&D of the right hip and excision of the sinus tract with a deep culture previous culture positive for MSSA. 2we will start the patient on cefazolin 2 g every 8 hours pending cultures however keeping in mind the patient did have a chronic infection to the right hip and has been previously treated with a course of IV antibiotic therapy may consider suppressive oral antibiotics on the basis of new culture 3check inflammatory markers and blood cultures We will follow on clinical condition and cultures to further adjust medication if needed Thank you for this consultation we will follow the patient along with you Dictation was produced using [employer] dictation software. please excuse any grammatical, word or spelling errors. Time with Patient: Greater than 30
[2024-06-14] MEDS: PANTOPRAZOLE 40 MG TABLET PO SCH (08:14)
[2024-06-14] MEDS: DULoxetine HCL 30 MG CAPSULE.DR PO SCH (08:14)
[2024-06-14 10:45] LABS: Basophils # (A) 0.02 X 10*3/uL (0.00-0.10); Basophils % (A) 0.3 %; Eosinophils # (A) 0 X 10*3/uL (0.04-0.35); Eosinophils % (A) 0 %; HCT 28.3 % (37.2-50.0); HGB 8.3 g/dL (12.0-17.0); Lymphocytes # (A) 1.01 X 10*3/uL (0.90-5.00); Lymphocytes % (A) 12.8 %; MCH 27.8 pg (27.0-32.0); MCHC 29.3 g/dL (32.0-37.0); MCV 94.6 FL (80.0-97.0); Monocytes % (A) 6.4 %; NRBC Per 100 WBC 0 X 10*3/uL (0.00-0.01); Platelet Count 374 X 10*3/uL (140-440); RBC 2.99 X 10*6/uL (4.10-5.60); RDW 14.9 % (11.5-14.5); WBC 7.87 X 10*3/uL (4.50-10.00)
[2024-06-14 10:48] LABS: ALT 9 U/L (8-49); AST 27 U/L (13-35); Albumin 3.5 g/dL (3.8-4.9); Albumin/Globulin Ratio 1.67 Ratio (1.60-3.17); Alkaline Phosphatase 53 U/L (41-126); BUN/Creat Ratio 18.56 Ratio (12.00-20.00); Blood Urea Nitrogen 16.7 mg/dL (9.0-27.0); Calcium 8.9 mg/dL (8.7-10.3); Carbon Dioxide 24.1 mmol/L (21.6-31.8); Chloride 106 mmol/L (96-109); Globulin 2.1 g/dL (1.6-3.3); Glucose 123 mg/dL (70-110); Potassium 4.3 mmol/L (3.5-5.5); Sodium 140 mmol/L (135-145); Total Bilirubin <0.2 mg/dL (0.3-1.2); Total Protein 5.6 g/dL (6.2-8.2)
--- NOTE | 2024-06-14 11:34 | P.DS ---
Providers Expected date of discharge: 06/14/24 Attending physician: Amarjit Odonnell Consults: 06/13/24 10:39 Consult Physician Routine Consulting Provider: Johanne Escalante Consult Reason/Comments: medical management Do you want consulting provider notified?: Yes 06/13/24 10:42 Consult Physician Routine Consulting Provider: Mayank Noriega Consult Reason/Comments: s/p i&d right hip. Do you want consulting provider notified?: Yes Primary care physician: Stated None - Discharge Diagnosis(es) (1) History of total replacement of right hip Current Visit: No Status: Acute (2) Infection of right prosthetic hip joint Current Visit: No Status: Acute Hospital Course: This is an 79-year-old female who underwent right total hip arthroplasty in August 2016 and developed a draining sinus in 2022. 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 Patient has been on chronic suppressive antibiotic therapy, but recently was seen in the office due to recurrent drainage from her incision. After discussion and consideration patient elects to proceed with irrigation and debridement with antibiotic therapy to follow. The patient is seen preoperatively by Dr. Odonnell and medically cleared for surgery by their primary care physician. Patient is admitted to [facility] on 06/13/2024 for irrigation and debridement of the right hip. The procedure is performed without complication or sequelae. The patient is doing well postoperatively. Labs and vital signs are stable on day of discharge. Cultures are pending. Patient has been evaluated by infectious disease who will continue to follow the patient as an outpatient. On day of discharge patient's hip incision is healing well. There is minimal erythema. There is no drainage noted at this time. There is minimal soft ti ssue swelling to the hip and thigh. Patient has full foot and ankle motion without difficulty or pain. Calf is soft and nontender to palpation. Neurovascular status to the right lower extremity is intact. Patient is discharged home in good condition. Please see med rec for accurate list of home medications. Plan - Discharge Summary Discharge Rx Participant: Yes New Discharge Prescriptions: New HYDROcodone/APAP 5-325MG [[place] 5-325] 1 tab PO Q6HR PRN #28 tab PRN Reason: Pain Sennosides [Senokot] 2 tab PO DAILY PRN #60 tablet PRN Reason: Constipation Cephalexin [Keflex] 500 mg PO Q6HR 10 Days #40 cap No Action Metoprolol Tartrate 25 mg PO BID Furosemide [Lasix] 20 mg PO QAM Ferrous Sulfate [Iron (65 MG Elemental)] 2 tab PO DAILY DULoxetine HCL [Cymbalta] 30 mg PO QAM Pravastatin Sodium [Pravachol] 40 mg PO HS Multivit-Min/Iron/Folic/Lutein [Centrum Silver Women Tablet] 1 each PO DAILY LORazepam [Ativan] 0.5 mg PO TID diphenhydrAMINE HCL [Benadryl] 25 mg PO HS Pantoprazole [Protonix] 40 mg PO QAM Levothyroxine Sodium [Euthyrox] 25 mcg PO QAM Cephalexin [Keflex] 500 mg PO TID Potassium Chloride [Potassium Chloride ER] 10 meq PO QAM traMADol HCL 50 mg PO BID L.acidoph,Paracasei, B.lactis [Probiotic] 1 each PO DAILY Calcium Carbonate [Calcium] 600 mg PO DAILY Aspirin [Adult Low Dose Aspirin EC] 81 mg PO DAILY Acetaminophen Tab [Tylenol Tab] 1,000 mg PO TID Discharge Medication List Furosemide [Lasix] 20 mg PO QAM 10/30/19 [History] Metoprolol Tartrate 25 mg PO BID 10/30/19 [History] DULoxetine HCL [Cymbalta] 30 mg PO QAM 11/12/21 [History] Ferrous Sulfate [Iron (65 MG Elemental)] 2 tab PO DAILY 11/12/21 [History] Multivit-Min/Iron/Folic/Lutein [Centrum Silver Women Tablet] 1 each PO DAILY 09/18/22 [History] Potassium Chloride [Potassium Chloride ER] 10 meq PO QAM 09/18/22 [History] Pravastatin Sodium [Pravachol] 40 mg PO HS 09/18/22 [History] LORazepam [Ativan] 0.5 mg PO TID 06/03/23 [History] Acetaminophen Tab [Tylenol Tab] 1,000 mg PO TID 06/09/24 [History] Aspirin [Adult Low Dose Aspirin EC] 81 mg PO DAILY 06/09/24 [History] Calcium Carbonate [Calcium] 600 mg PO DAILY 06/09/24 [History] Cephalexin [Keflex] 500 mg PO TID 06/09/24 [History] L.acidoph,Paracasei, B.lactis [Probiotic] 1 each PO DAILY 06/09/24 [History] Levothyroxine Sodium [Euthyrox] 25 mcg PO QAM 06/09/24 [History] Pantoprazole [Protonix] 40 mg PO QAM 06/09/24 [History] diphenhydrAMINE HCL [Benadryl] 25 mg PO HS 06/09/24 [History] traMADol HCL 50 mg PO BID 06/09/24 [History] HYDROcodone/APAP 5-325MG [[place] 5-325] 1 tab PO Q6HR PRN #28 tab 06/13/24 [Rx] Sennosides [Senokot] 2 tab PO DAILY PRN #60 tablet 06/13/24 [Rx] Cephalexin [Keflex] 500 mg PO Q6HR 10 Days #40 cap 06/14/24 [Rx] Follow up Appointment(s)/Referral(s): Shauna Cueva NPC [REFERRING] - 06/20/24 2:45 pm Amarjit Odonnell DO [Doctor of Osteopathic Medicine] - 06/26/24 3:20 pm Myaank Noriega MD [STAFF PHYSICIAN] - 1 Week Activity/Diet/Wound Care/Special Instructions: Weightbearing as tolerated with walker. Leave dressing intact. Dressing may be removed by home care nurse or by patient in 7 days. Then change dressing twice daily until follow up. May shower with initial dressing intact and after removal. If dressing become saturated, please remove. Recommend use of compression stockings daily until follow up to help prevent swelling and blood clots. May remove at night before sleeping. Please follow-up with [facility] in 2 weeks and call with any questions or concerns, . Discharge Disposition: HOME SELF-CARE
[2024-06-14] MEDS: ACETAMINOPHEN TAB 325 MG TAB PO PRN (12:11)
[2024-06-14 16:04] LABS: Erythrocyte Sedimentation Rate 36 mm/Hr (0-30)
== END 2024-06-14 13:16 | disposition home or self-care (01) ==
LOC: OR 09:36 → 4SSUR 11:37 → OR 06-14 13:16
PROVIDERS: ATTEND Orthopaedic Surgery
DX: T84.51XA Infection and inflammatory reaction due to internal right hip prosthesis, initial encounter (principal); A49.01 Methicillin susceptible Staphylococcus aureus infection, unspecified site; I10 Essential (primary) hypertension; E78.49 Other hyperlipidemia; E03.9 Hypothyroidism, unspecified; K21.9 Gastro-esophageal reflux disease without esophagitis; J44.9 Chronic obstructive pulmonary disease, unspecified; D50.9 Iron deficiency anemia, unspecified; Z96.643 Presence of artificial hip joint, bilateral; Z87.891 Personal history of nicotine dependence; Z79.82 Long term (current) use of aspirin; Z79.899 Other long term (current) drug therapy; Z79.2 Long term (current) use of antibiotics; Y83.8 Other surgical procedures as the cause of abnormal reaction of the patient, or of later complication, without mention of misadventure at the time of the procedure
CPT/HCPCS: 97162; 97166; 80053; 85652; 85025; 86140; 87040; 87070; 87205; 87075; 11043; J1100; J0690 ×3; J2405